=== PATIENT | female | born 1945 | race Caucasian/White ===

== ENCOUNTER → 2016-07-07 | Outpatient (CLI) | payer OTHER ==
[2016-01-13 19:31] VITALS: BP 163/80
--- NOTE | 2016-07-07 11:36 | RAD ---
Gastrografin Enema Indication: History of diverticulitis, complicated by a colovesical fistula. Patient has undergone s urgery and colostomy. Evaluate for persistent fistula or leak. Technique: Fluoroscopic spot radiographs, full view diagnostic radiography and fluoroscopy was perfo rmed live during the injection of dilute Gastrografin via a rectal tube. Findings: The rectum shows normal distention and filling up to the level of the rectosigmoid junctio n, where surgical clips are noted in the mid and left hemipelvis. At this point, the margin of the c olon is are regular, and narrowed, suggesting active inflammatory process and or stricture. Oblique views demonstrate a small inferiorly directed collection which is outside the expected lumen of the colon. This is about 1.5 x 0.5 cm. Further Gastrografin distension did not show expansion of the col lection or leak elsewhere. No convincing evidence of contrast seen in the urinary bladder. Impression: 1. Small extra colonic collection of material, with fistulous connection to the colon. The colon at this level demonstrates irregular mucosa and focal narrowing suggesting active inflammatory process. Evacuated post enema material was slightly sanguinous, also suggesting inflammation. 2. Contrast freely progressed past the narrowing cranially into the colostomy bag, without other vanessa ss abnormality seen. Reported By:
== END ==
LOC: RAD 09:03
PROVIDERS: ATTEND Internal Medicine Gastroenterology
DX: K60.3 Anal fistula (principal)
CPT/HCPCS: 74270

== ENCOUNTER 2016-12-17 10:02 | Inpatient (IN) | payer OTHER ==
[2016-12-17] MEDS ORDERED: ZOFRAN INJ 4 MG VIAL IVP PRN (10:10)
[2016-12-17 11:33] LABS: BASOPHILS # (AUTO) 0.1 X10^3/uL (0.0-0.1); BASOPHILS % (AUTO) 0.6 % (0.2-1.0); EOSINOPHILS # (AUTO) 0.1 x10^3/uL (0.0-0.2); EOSINOPHILS % (AUTO) 0.6 % (0.9-2.9); HEMATOCRIT 23.2 % (36.0-47.0); HEMOGLOBIN 7.4 g/dL (12.0-16.0); LYMPHOCYTES # (AUTO) 1.8 X10^3/uL (1.3-2.9); LYMPHOCYTES % (AUTO) 16.1 % (21.0-51.0); MEAN CORPUSCULAR HEMOGLOBIN 28.5 pg (27.0-34.0); MEAN CORPUSCULAR HGB CONC 31.8 g/dL (33.0-35.0); MEAN CORPUSCULAR VOLUME 89.7 fL (80.0-100.0); MEAN PLATELET VOLUME 6.8 fL (7.4-11.0); MONOCYTES # (AUTO) 0.9 x10^3/uL (0.3-0.8); MONOCYTES % (AUTO) 8.1 % (0.0-13.0); NEUTROPHILS # (AUTO) 8.4 x10^3/uL (2.2-4.8); NEUTROPHILS % (AUTO) 74.6 % (42.0-75.0); PLATELET COUNT 443 X10^3/uL (150.0-450.0); RED BLOOD COUNT 2.59 X10^6/uL (3.5-5.4); WHITE BLOOD COUNT 11.3 X10^3/uL (3.6-10.0)
[2016-12-17 11:43] LABS: ALBUMIN 3.2 g/dL (3.4-5.0); CALCIUM 9.1 mg/dL (8.5-10.1); CARBON DIOXIDE 26.6 mmol/L (21-32); COR CA(FOR HYPOALB) 9.7 mg/dL (8.5-10.1); CREATININE 1.41 mg/dL (0.55-1.02)
[2016-12-17 11:51] LABS: PLATELET MORPHOLOGY COMMENT NORMAL (NORMAL)
[2016-12-17 11:52] LABS: ANISOCYTOSIS 1+; HYPOCHROMASIA 1+; MICROCYTOSIS 1+
[2016-12-17] MEDS: NS 1000 ML 1,000 ML IV SCH ×2 (12:02→21:25)
[2016-12-17 12:12] VITALS: BMI 20.7
[2016-12-17] MEDS ORDERED: PHARMACY CONSULT - DOSE _____ XX SCH (17:00)
[2016-12-17 17:34] LABS: BILIRUBIN,URINE 1+ (NEGATIVE); BLOOD/HEMOGLOBIN,URINE 3+ (NEGATIVE); GLUCOSE, URINE NEGATIVE (NEGATIVE); KETONES,URINE NEGATIVE (NEGATIVE); LEUKOCYTE ESTERASE ,URINE 3+ (NEGATIVE); NITRITES,URINE POSITIVE (NEGATIVE); PROTEIN,URINE 2+ (NEGATIVE); UROBILINOGEN,URINE 1+ (NORMAL)
[2016-12-17 17:43] LABS: APPEARANCE,URINE HAZY (CLEAR); COLOR,URINE YELLOW (YELLOW)
[2016-12-17 17:44] LABS: BACTERIA,URINE TRACE /HPF (NEGATIVE); RBC,URINE 0-2 /HPF (NEGATIVE); SQUAMOUS EPITHELIAL CELL,UR RARE /HPF (NEGATIVE)
--- NOTE | 2016-12-17 17:53 | DR.H&P ---
H&P - History & Physical for Day of: H&P Date: 12/17/16 - Chief Complaint Chief Complaint: IS A 71 YEAR OLD PATIENT OF OURS WHO WAS A DIRECT ADMISSION. SHE PRESENTED TO THE OFFICE TODAY WITH COMPLAINTS OF NAUSEA, VOMITING , BURNING ON URINATION, AND WEAKNESS. PATIENT REPORTS THAT SHE WAS SCHEDULED FOR PREOP FOR ABDOMINAL SURGERY IN [place] THIS MORNING. PATIENT HAS A HISTORY OF A COLOSTOMY. COLOSTOMY WAS REVERSED TWO MONTHS AGO. PATIENT HAS SINCE DEVELOPED FISTULAS. PATIENT REPORTS THAT PARTICLES OF FECES ARE IN HER URINE. CULTURES WERE OBTAINED IN [place] AND PATIENT WAS NOTIFIED THAT CULTURES GREW OUT TWO SEPERATED MICROORGANISMS. SHE WAS PLACED ON CIPRO, HOWEVER, PATIENT STOPPED TAKING BECAUSE IT CAUSED NAUSEA AND VOMITING. PATIENT WAS CHANGED TO BACTRIM. PATIENT REPORTS INTRACTABLE NAUSEA AND VOMITING SINCE LAST NIGHT DESPITE CHANGE OF ANTIBIOTICS. ON EXAMINATION, LUNGS WERE NOTED CLEAR TO AUSCULTATION. ABDOMEN IS SOFT, ROUND, AND TENDER. SHE REPORTS DIFFUSE TENDERNESS. NORMAL BOWEL SOUNDS WERE NOTED IN ALL QUADRANTS. PATIENT APPEARED TO BE VERY WEAK. WE ADMITTED PATIENT TO THE HOSPITAL FOR FURTHER TREATMENT AND EVALUATION OF INTRACTABLE NAUSEA, VOMITING, UTI, AND DEHYDRATION. WE PLANNED TO OBTAIN CBC, CMP, BLOOD CULTURES, AND URINALYSIS ON ADMISSION. ON ADMISSION, LABS WERE OBTAINED. ABNORMAL LAB VALUES INCLUDE THE FOLLOWING: WBC 11.3, RBC 2.59, HGB 7.4, HCT 23.2, SODIUM 135, POTASSIUM 3.2, CREATININE 1.41, GLUCOSE 112 , TOTAL BILI 1.50, ALBUMIN 3.2. URINALYSIS REPORTE WBC 25-50, BACTERIA TRACE, LEUKOCYTES 3+, NITRATES POSITIVE, PROTEIN 2+. A URINE CULTURE WAS SET UP. WE STARTED PATIENT ON NS@125ML/HR, ZOFRAN 4MG IV Q4H PRN, MORPHINE 2MG IV Q4H PRN PAIN. WE WILL ALSO START LEVAQUIN AND FORTAZ, PHARMACY TO DOSE. WE PLAN TO FOLLOW UP WITH AM LABS AND CONTINUE TO MONITOR PATIENT. - Allergies Allergies/Adverse Reactions: Allergies Allergy/AdvReac Type Severity Reaction Status Date / Time ciprofloxacin [From Cipro] Allergy Verified 12/17/16 11:31 metronidazole [From Flagyl] Allergy Verified 12/17/16 11:31 - Past Medical History Past Medical History: Hypertension Additional Medical History: Cataracts, Diverticulosis, back pain, DDD, Scoliosis , Previous blood transfusion - Past Surgical History Surgical History: Bowel Resection, Joint Replacement Additional Surgical History: Colostomy approx. 6 weeks ago, Bilateral knee replacement, Shoulder replacement, hip replacement. - Family History Family Medical History: Diabetes Mellitus, [place], Hypertension - Social History Does patient currently use any type of tobacco product: No Have you used tobacco products in the last 12 months: No Type of Tobacco Use: None Does any household member use tobacco: No Alcohol Use: None - Medications Home Medications: Alprazolam [XANAX 0.5 MG *] 1 tab PO BID 12/17/16 [History Confirmed 12/17/16] Ascorbic Acid [Vitamin C] 500 mg PO DAILY 12/17/16 [History Confirmed 12/17/16] Cholecalciferol (Vitamin D3) [Vitamin D3] 5,000 units PO BID 12/17/16 [History Confirmed 12/17/16] Clonazepam 2 mg PO HS 12/17/16 [History Confirmed 12/17/16] Famotidine [PEPCID TAB 20 MG *] 1 tab PO BID 12/17/16 [History Confirmed ] Gabapentin [NEURONTIN CAP 300 mg *] 1 tab PO BID 12/17/16 [History Confirmed ] Hydrocodone-Acet 10/325 mg [NORCO 10 MG/325 MG *] 1 tab PO BID PRN 12/17/16 [ History Confirmed 12/17/16] Levothyroxine Sodium [SYNTHROID 75 mcg *] 77 mcg PO DAILY 12/17/16 [History Confirmed 12/17/16] Lisinopril [Prinivil] 2.5 mg PO DAILY 12/17/16 [History Confirmed 12/17/16] Multivitamin/Iron/Folic Acid [Centrum Women Tablet] 1 tab PO DAILY 12/17/16 [ History Confirmed 12/17/16] Pantoprazole Sodium 40 mg [PROTONIX 40 MG *] 40 mg PO DAILY 12/17/16 [History Confirmed 12/17/16] Promethazine HCl [PHENERGAN TAB 25 MG *] 1 tab PO Q4-6H PRN 12/17/16 [History Confirmed 12/17/16] Ropinirole HCl [REQUIP 1 MG *] 0.5 mg PO HS 12/17/16 [History Confirmed 12/17/16 ] Sertraline HCl [ZOLOFT 50 MG *] 50 mg PO HS PRN 12/17/16 [History Confirmed ] Sulfamethoxazole-Trimethoprim [BACTRIM DS TAB 800/160 MG *] 1 tab PO BID [History Confirmed 12/17/16] Tizanidine HCl 4 mg PO HS 12/17/16 [History Confirmed 12/17/16] Triamterene & Hydrochlorothiaz [DYAZIDE CAP 37.5/25 MG GENERIC *] 1 tab PO DAILY 12/17/16 [History Confirmed 12/17/16] - Review of Systems Constitutional: Weakness Eyes: No Symptoms Reported ENT: No Symptoms Reported Respiratory: No Symptoms Reported Cardiovascular: No Symptoms Reported Gastrointestinal: Nausea, Vomiting, Abdominal Pain Genitourinary: See HPI Musculoskeletal: No Symptoms Reported Skin: No Symptoms Reported Neurological: Weakness - Physical Exam Vital Signs: Temperature 98.4 F Pulse Rate [Right Radial] 76 Respiratory Rate 18 Blood Pressure [Left Arm] 142/65 Blood Pressure [Right Arm] 151/75 Blood Pressure 163/80 O2 Sat by Pulse Oximetry 92 Oriented: Normal Eyes: Normal Ear: Normal Nose: Normal Throat: Dry Respiratory: Clear Throughout Cardiovascular: Normal : Normal Auscultation: Bowel Sounds: Normal Palpation: Normal Tenderness: Normal Skin: Normal Psychiatric: Normal Mood Description: Calm Affect: Normal Speech Pattern: Clear - Assessment/Plan (1) Urinary tract infection Qualifiers: Urinary tract infection type: acute cystitis Hematuria presence: without hematuria Qualified Code(s): N30.00 - Acute cystitis without hematuria Status: Acute Plan: LEVAQUIN IV, FORTAZ IV, COTNINUE TO MONITOR (2) Dehydration Status: Acute Plan: NS@125ML/HR, CONTINUE TO MONITOR (3) Nausea & vomiting Qualifiers: Vomiting type: unspecified Vomiting Intractability: intractable Qualified Code(s): R11.2 - Nausea with vomiting, unspecified Status: Acute Plan: ZOFRAN 4MG IV Q4H PRN, NS AT 125ML/HR, CONTINUE TO MONITOR
[2016-12-17] MEDS ORDERED: TYLENOL 325 MG TAB PO PRN (19:41)
[2016-12-17] MEDS ORDERED: XANAX PO PRN (20:34)
[2016-12-17] MEDS ORDERED: ZESTRIL TAB 5 MG PO PRN (20:41)
[2016-12-17] MEDS ORDERED: PYRIDIUM PO PRN (20:42)
[2016-12-17] MEDS ORDERED: LEVAQUIN PREMIX IV 750 MG 750 MG/150 ML BAG IV ONE (21:00)
[2016-12-17] MEDS: FORTAZ or TAZICEF INJ 1 GM in NS 50 ML IV + SPIKE MINIBAG* 50 ML IV SCH (21:20)
[2016-12-17] MEDS: ZOLOFT PO SCH (21:23)
[2016-12-17] MEDS: KLONOPIN TAB 1 MG PO SCH (21:23)
[2016-12-17] MEDS: NEURONTIN CAP 300 MG PO SCH (21:23)
[2016-12-17] MEDS: NORCO 10/325 TAB PO PRN (21:24)
[2016-12-17] MEDS: REQUIP PO SCH (21:24)
[2016-12-17] MEDS: ZANAFLEX PO SCH (21:24)
[2016-12-17] MEDS: PHENERGAN INJ 25 MG IV PRN (21:25)
[2016-12-18] MEDS: PHENERGAN INJ 25 MG IV PRN (04:11)
[2016-12-18] MEDS: SYNTHROID 75 mcg TAB PO SCH (06:06)
[2016-12-18] MEDS: NS 1000 ML 1,000 ML IV SCH ×3 (06:06→20:31)
[2016-12-18 06:34] LABS: BASOPHILS # (AUTO) 0.1 X10^3/uL (0.0-0.1); BASOPHILS % (AUTO) 1.1 % (0.2-1.0); EOSINOPHILS # (AUTO) 0.1 x10^3/uL (0.0-0.2); EOSINOPHILS % (AUTO) 1.1 % (0.9-2.9); LYMPHOCYTES # (AUTO) 1.5 X10^3/uL (1.3-2.9); LYMPHOCYTES % (AUTO) 21.2 % (21.0-51.0); MEAN CORPUSCULAR HEMOGLOBIN 29.6 pg (27.0-34.0); MEAN CORPUSCULAR HGB CONC 32.4 g/dL (33.0-35.0); MEAN CORPUSCULAR VOLUME 91.6 fL (80.0-100.0); MONOCYTES # (AUTO) 0.7 x10^3/uL (0.3-0.8); MONOCYTES % (AUTO) 9.7 % (0.0-13.0); NEUTROPHILS # (AUTO) 4.8 x10^3/uL (2.2-4.8); NEUTROPHILS % (AUTO) 66.9 % (42.0-75.0); PLATELET COUNT 346 X10^3/uL (150.0-450.0); RED BLOOD COUNT 2.11 X10^6/uL (3.5-5.4); RED CELL DISTRIBUTION WIDTH 22.8 % (11.6-16.5); WHITE BLOOD COUNT 7.1 X10^3/uL (3.6-10.0)
[2016-12-18 06:55] LABS: ALANINE AMINOTRANSFERASE 16 Units/L (12-78); ALBUMIN 2.7 g/dL (3.4-5.0); ALKALINE PHOSPHATASE 88 Units/L (46-116); ASPARTATE AMINO TRANSFERASE 34 Units/L (15-37); BLOOD UREA NITROGEN 9 mg/dL (7-18); CALCIUM 8.2 mg/dL (8.5-10.1); CHLORIDE 106 mmol/L (98-107); COR CA(FOR HYPOALB) 9.2 mg/dL (8.5-10.1); CREATININE 1.29 mg/dL (0.55-1.02); SODIUM 140 mmol/L (136-145); TOTAL PROTEIN 6.1 g/dL (6.4-8.2); eGFR BLACK RACES 52 (>60); eGFR NON BLACK RACES 43 (>60)
[2016-12-18] MEDS: NORCO 10/325 TAB PO PRN (06:56)
[2016-12-18 07:31] LABS: HEMOGLOBIN 6.3 g/dL (12.0-16.0)
[2016-12-18 07:32] LABS: HEMATOCRIT 19.3 % (36.0-47.0)
[2016-12-18 07:34] LABS: ANISOCYTOSIS 2+; HYPOCHROMASIA 1+; PLATELET MORPHOLOGY COMMENT NORMAL (NORMAL); SPHEROCYTES PRESENT; STOMATOCYTES PRESENT
[2016-12-18] MEDS: NEURONTIN CAP 300 MG PO SCH ×2 (08:46→20:31)
[2016-12-18] MEDS: MAXZIDE 37.5/25 MG PO SCH ×2 (08:46→10:22)
[2016-12-18] MEDS: VITAMIN C PO SCH (08:46)
[2016-12-18] MEDS: PEPCID TAB 20 MG PO SCH (08:47)
[2016-12-18] MEDS: PROTONIX TAB 40 MG PO SCH (08:47)
[2016-12-18] MEDS: FORTAZ or TAZICEF INJ 1 GM in NS 50 ML IV + SPIKE MINIBAG* 50 ML IV SCH (08:48)
[2016-12-18] MEDS ORDERED: DILAUDID PO PRN (09:04)
[2016-12-18] MEDS: NORCO 10/325 TAB PO SCH ×4 (10:23→20:30)
[2016-12-18] MEDS: NS 500 ML IV 500 ML IV ONE (14:15)
--- NOTE | 2016-12-18 18:05 | PCM.PROG ---
Progress Note - Progress Note for Day of Date: 12/18/16 - Subjective Subjective: WAS ADMITTED YESTERDAY FOR NAUSEA, VOMITING, DIARRHEA, BURING ON URINATION, AND GENERALIZED WEAKNESS. SHE ALSO REPORTS BACK PAIN. PATIENT STATES, "I KNOW ITS FROM LYING IN THIS BED". TODAY, SHE IS ALERT AND ORIENTED, LYING IN BED ON MORNING ROUNDS. PATIENT REPORTS FEELING MUCH BETTER SINCE ADMISSION, HOWEVER, CONTINUES WITH COMPLAINTS OF DIARRHEA AND WEAKNESS. ON EXAMINATION, LUNGS WERE NOTED CLEAR TO AUSCULTATION. ABDOMEN IS SOFT, ROUND, AND TENDER TO PALPATION. HYPERACTIVE BOWEL SOUNDS ARE NOTED IN ALL QUADRANTS. HER VITAL SIGNS THIS MORNING ARE 98.5-68-18-93%-114/56. A CBC AND CMP WERE OBTAINED. ABNORMAL LAB VALUES INCLUDE THE FOLLOWING: RBC 2.11, HGB 6.3, HCT 9.3 , POTASSIUM 3.4, CREATININE 1.29, CALCIUM 8.2, TOTAL PROTEIN 6.1, ALBUMIN 2.7, TOTAL BILI 1.20. TODAY, WE WILL TYPE AND SCREEN AND TRANSFUSE 2 UNITS PRBC. WE WILL PREMEDICATE WITH TYLENOL 650MG PO AND BENADRYL 25MG IV. WE WILL ALSO START DILAUDID 1MG IV Q4H PRN FOR PAIN. WE PLAN TO FOLLOW UP WITH AM LABS AND CONTINUE TO MONITOR PATIENT. - Past Medical Family Social History Past Med/Fam/Surg Hx: No changes since H&P Allergies: Allergies ciprofloxacin [From Cipro] Allergy (Verified 12/17/16 11:31) metronidazole [From Flagyl] Allergy (Verified 12/17/16 11:31) - Review of Systems ROS: No change since H&P - Vital Signs and I&O's Vital Signs: Temperature 97.7 F Pulse Rate [Right Brachial] 72 Pulse Rate [Right Radial] 72 Respiratory Rate 16 Blood Pressure [Left Arm] 123/59 Blood Pressure [Right Arm] 114/58 Blood Pressure 163/80 O2 Sat by Pulse Oximetry 94 Intake and Output: Intake & Output 12/16/16 12/17/16 12/18/16 12/19/16 11:59 11:59 11:59 11:59 Intake Total 1920 1340 Output Total 301 2 Balance 1619 1338 - Physical Exam Oriented: Normal Eyes: Normal Ear: Normal Nose: Normal Throat: Normal, Dry Respiratory: Normal Cardiovascular: Normal : Normal Auscultation: Bowel Sounds: Normal Palpation: Normal Tenderness: Diffuse Skin: Normal Musculoskeletal: Normal Psychiatric: Normal Mood Description: Calm Affect: Normal Speech Pattern: Clear - Laboratory and Diagnostics Result Diagrams: 12/18/16 04:30 12/18/16 04:30 Labs: 12/17/16 17:05 Urine,Clean Catch Urine Culture - Final Laboratory WBC 7.1 X10^3/uL (3.6-10.0) 12/18/16 04:30 RBC 2.11 X10^6/uL (3.5-5.4) L 12/18/16 04:30 Hgb 6.3 g/dL (12.0-16.0) L* 12/18/16 04:30 Hct 19.3 % (36.0-47.0) L* 12/18/16 04:30 MCV 91.6 fL (80.0-100.0) 12/18/16 04:30 MCH 29.6 pg (27.0-34.0) 12/18/16 04:30 MCHC 32.4 g/dL (33.0-35.0) L 12/18/16 04:30 RDW 22.8 % (11.6-16.5) H 12/18/16 04:30 Plt Count 346 X10^3/uL (150.0-450.0) 12/18/16 04:30 Plt Count Comment Adequate (ADEQUATE) 12/18/16 04:30 MPV 8.0 fL (7.4-11.0) 12/18/16 04:30 Neut % 66.9 % (42.0-75.0) 12/18/16 04:30 Lymph % 21.2 % (21.0-51.0) 12/18/16 04:30 [place] % 9.7 % (0.0-13.0) 12/18/16 04:30 Eos % 1.1 % (0.9-2.9) 12/18/16 04:30 Baso % 1.1 % (0.2-1.0) H 12/18/16 04:30 Neut # 4.8 x10^3/uL (2.2-4.8) 12/18/16 04:30 Lymph # 1.5 X10^3/uL (1.3-2.9) 12/18/16 04:30 [place] # 0.7 x10^3/uL (0.3-0.8) 12/18/16 04:30 Eos # 0.1 x10^3/uL (0.0-0.2) 12/18/16 04:30 Baso # 0.1 X10^3/uL (0.0-0.1) 12/18/16 04:30 Absolute Nucleated RBC 0.2 /100WBC 12/18/16 04:30 Plt Morphology Comment Normal (NORMAL) 12/18/16 04:30 RBC Morphology Abnormal (NORMAL) A 12/18/16 04:30 Hypochromasia 1+ A 12/18/16 04:30 Anisocytosis 2+ A 12/18/16 04:30 Microcytosis 1+ A 12/17/16 11:20 Macrocytosis 1+ A 12/17/16 11:20 Spherocytes Present 12/18/16 04:30 Stomatocytes Present 12/18/16 04:30 Sodium 140 mmol/L (136-145) 12/18/16 04:30 Corrected Sodium TNP 12/18/16 04:30 Potassium 3.4 mmol/L (3.5-5.1) L 12/18/16 04:30 Chloride 106 mmol/L (98-107) 12/18/16 04:30 Carbon Dioxide 26.0 mmol/L (21-32) 12/18/16 04:30 BUN 9 mg/dL (7-18) 12/18/16 04:30 Creatinine 1.29 mg/dL (0.55-1.02) H 12/18/16 04:30 Est GFR (MDRD) Af Amer 52 (>60) L 12/18/16 04:30 Est GFR (MDRD) Non-Af 43 (>60) L 12/18/16 04:30 Glucose 79 mg/dL (65-99) 12/18/16 04:30 Calcium 8.2 mg/dL (8.5-10.1) L 12/18/16 04:30 Corrected Calcium 9.2 mg/dL (8.5-10.1) 12/18/16 04:30 Total Bilirubin 1.20 mg/dL (0.2-1.0) H 12/18/16 04:30 AST 34 Units/L (15-37) 12/18/16 04:30 ALT 16 Units/L (12-78) 12/18/16 04:30 Alkaline Phosphatase 88 Units/L (46-116) 12/18/16 04:30 Total Protein 6.1 g/dL (6.4-8.2) L 12/18/16 04:30 Albumin 2.7 g/dL (3.4-5.0) L 12/18/16 04:30 Globulin 3.4 g/dL (2.5-4.5) 12/18/16 04:30 Albumin/Globulin Ratio 0.8 Ratio (1.1-2.1) L 12/18/16 04:30 Specimen Type Clean catch urine 12/17/16 17:05 Urine Color Yellow (YELLOW) 12/17/16 17:05 Urine Appearance Hazy (CLEAR) 12/17/16 17:05 Urine pH 8.0 (5.0 - 8.0) 12/17/16 17:05 Ur Specific [place] 1.010 (1.000-1.030) 12/17/16 17:05 Urine Protein 2+ (NEGATIVE) 12/17/16 17:05 Urine Glucose (UA) Negative (NEGATIVE) 12/17/16 17:05 Urine Ketones Negative (NEGATIVE) 12/17/16 17:05 Urine Occult Blood 3+ (NEGATIVE) 12/17/16 17:05 Urine Nitrite Positive (NEGATIVE) 12/17/16 17:05 Urine Bilirubin 1+ (NEGATIVE) 12/17/16 17:05 Urine Urobilinogen 1+ (NORMAL) 12/17/16 17:05 Ur Leukocyte Esterase 3+ (NEGATIVE) 12/17/16 17:05 Urine RBC 0-2 /HPF (NEGATIVE) 12/17/16 17:05 Urine WBC 25-50 /HPF (NEGATIVE) 12/17/16 17:05 Ur Squamous Epith Cells Rare /HPF (NEGATIVE) 12/17/16 17:05 Urine Bacteria Trace /HPF (NEGATIVE) 12/17/16 17:05 Ur Culture Indicated? Yes/culture set up 12/17/16 17:05 Blood Type O POSITIVE 12/18/16 08:30 Antibody Screen Negative 12/18/16 08:30 Crossmatch See Detail 12/18/16 08:30 - Plan (1) Urinary tract infection Status: Acute Qualifiers: Urinary tract infection type: acute cystitis Hematuria presence: without hematuria Qualified Code(s): N30.00 - Acute cystitis without hematuria Plan: LEVAQUIN IV, FORTAZ IV, COTNINUE TO MONITOR (2) Dehydration Status: Acute Plan: NS@125ML/HR, CONTINUE TO MONITOR (3) Nausea & vomiting Status: Acute Qualifiers: Vomiting type: unspecified Vomiting Intractability: intractable Qualified Code(s): R11.2 - Nausea with vomiting, unspecified Plan: ZOFRAN 4MG IV Q4H PRN, NS AT 125ML/HR, CONTINUE TO MONITOR (4) Anemia Status: Acute Qualifiers: Anemia type: unspecified type Qualified Code(s): D64.9 - Anemia, unspecified Plan: TRANSFUSE 2 UNITS PRBC, MONITOR H&H, CONTINUE TO MONITOR
[2016-12-18] MEDS: ZANAFLEX PO SCH (20:30)
[2016-12-18] MEDS: KLONOPIN TAB 1 MG PO SCH (20:30)
[2016-12-18] MEDS: ZOLOFT PO SCH (20:30)
[2016-12-18] MEDS: REQUIP PO SCH (20:30)
[2016-12-19] MEDS ORDERED: NS 500 ML IV 500 ML IV ONE (00:46)
[2016-12-19] MEDS: BENADRYL INJ 50 MG VIAL IVP PRN ×2 (00:51→10:37)
[2016-12-19] MEDS: NS 500 ML IV 500 ML IV ONE (00:51)
[2016-12-19] MEDS: NS 1000 ML 1,000 ML IV SCH ×2 (06:06→11:22)
[2016-12-19] MEDS: SYNTHROID 75 mcg TAB PO SCH (06:06)
[2016-12-19 06:47] LABS: BASOPHILS # (AUTO) 0.1 X10^3/uL (0.0-0.1); BASOPHILS % (AUTO) 1.2 % (0.2-1.0); EOSINOPHILS # (AUTO) 0.1 x10^3/uL (0.0-0.2); EOSINOPHILS % (AUTO) 1.7 % (0.9-2.9); HEMATOCRIT 26.2 % (36.0-47.0); HEMOGLOBIN 8.6 g/dL (12.0-16.0); MEAN CORPUSCULAR HEMOGLOBIN 29.6 pg (27.0-34.0); MEAN CORPUSCULAR HGB CONC 32.9 g/dL (33.0-35.0); MEAN CORPUSCULAR VOLUME 90.1 fL (80.0-100.0); MEAN PLATELET VOLUME 7.4 fL (7.4-11.0); MONOCYTES # (AUTO) 0.6 x10^3/uL (0.3-0.8); MONOCYTES % (AUTO) 8.4 % (0.0-13.0); NEUTROPHILS # (AUTO) 3.9 x10^3/uL (2.2-4.8); NEUTROPHILS % (AUTO) 58.7 % (42.0-75.0); PLATELET COUNT 301 X10^3/uL (150.0-450.0); RED BLOOD COUNT 2.91 X10^6/uL (3.5-5.4); RED CELL DISTRIBUTION WIDTH 20.5 % (11.6-16.5); WHITE BLOOD COUNT 6.6 X10^3/uL (3.6-10.0)
[2016-12-19 07:13] LABS: ANISOCYTOSIS 2+; HYPOCHROMASIA SLIGHT; PLATELET MORPHOLOGY COMMENT NORMAL (NORMAL); SPHEROCYTES PRESENT
[2016-12-19] MEDS: NEURONTIN CAP 300 MG PO SCH (08:26)
[2016-12-19] MEDS: PROTONIX TAB 40 MG PO SCH (08:27)
[2016-12-19] MEDS: PEPCID TAB 20 MG PO SCH (08:27)
[2016-12-19] MEDS: NORCO 10/325 TAB PO SCH ×4 (08:27→16:56)
[2016-12-19] MEDS: VITAMIN C PO SCH (08:27)
[2016-12-19] MEDS: FORTAZ or TAZICEF INJ 1 GM in NS 50 ML IV + SPIKE MINIBAG* 50 ML IV SCH (08:38)
[2016-12-19] MEDS: MAXZIDE 37.5/25 MG PO SCH (08:39)
[2016-12-19] MEDS ORDERED: LEVAQUIN PREMIX IV 750 MG 750 MG/150 ML BAG IV SCH (09:00)
[2016-12-19] MEDS ORDERED: NS 250 ML IV 250 ML IV ONE (10:32)
[2016-12-19 13:52] LABS: ALANINE AMINOTRANSFERASE 15 Units/L (12-78); ALBUMIN 2.6 g/dL (3.4-5.0); ALKALINE PHOSPHATASE 77 Units/L (46-116); ASPARTATE AMINO TRANSFERASE 28 Units/L (15-37); BLOOD UREA NITROGEN 6 mg/dL (7-18); CALCIUM 7.5 mg/dL (8.5-10.1); CARBON DIOXIDE 25.6 mmol/L (21-32); CHLORIDE 110 mmol/L (98-107); COR CA(FOR HYPOALB) 8.6 mg/dL (8.5-10.1); CREATININE 1.19 mg/dL (0.55-1.02); SODIUM 142 mmol/L (136-145); TOTAL PROTEIN 5.8 g/dL (6.4-8.2); eGFR BLACK RACES 58 (>60); eGFR NON BLACK RACES 48 (>60)
[2016-12-19 16:39] VITALS: BP 140/69
== END 2016-12-19 17:55 | disposition home or self-care (01) | DRG 690 ==
LOC: MED/SURG 10:02 → OBSVTOIN 12-18 08:00
PROVIDERS: ADMIT Internal Medicine; ATTEND Internal Medicine
PROC: 30233N1 Transfusion of Nonautologous Red Blood Cells into Peripheral Vein, Percutaneous Approach (ICD-10-PCS; principal; 2016-12-18)
PROC: 30233N1 Transfusion of Nonautologous Red Blood Cells into Peripheral Vein, Percutaneous Approach (ICD-10-PCS; 2016-12-19)
PROC: 30233N1 Transfusion of Nonautologous Red Blood Cells into Peripheral Vein, Percutaneous Approach (ICD-10-PCS; 2016-12-19)
PROC: 30233N1 Transfusion of Nonautologous Red Blood Cells into Peripheral Vein, Percutaneous Approach (ICD-10-PCS; 2016-12-19)
DX: N30.00 Acute cystitis without hematuria (principal); E86.0 Dehydration; R11.2 Nausea with vomiting, unspecified; I10 Essential (primary) hypertension; R19.7 Diarrhea, unspecified; R53.1 Weakness; D64.89 Other specified anemias; K63.2 Fistula of intestine
CPT/HCPCS: 36415; 36430; 80053; 81001; 85025; 86850; 86900; 86901; 86922; 87086; 93005; 94760; A4222; P9016; G0378; J0713; J1200; J1956; J2405; J2550

== ENCOUNTER → 2017-03-08 | Outpatient (CLI) | payer OTHER ==
--- NOTE | 2017-03-09 11:31 | CT ---
HISTORY: History of the fissures L2: Study: Computed tomography of the abdomen and pelvis: Multiple axial images were obtained throughou t the abdomen and pelvis after the ingestion of oral contrast and the injection of intravascular cont rast per standard protocol. Radiation dose reduction techniques utilized. Comparison: Barium enema examination from 07/07/2016 CT of the abdomen pelvis from 01/10/2016 and Findings: The lung bases demonstrate minimal interstitial scarring. Minimal hypostatic changes noted in the le ft lung base. The heart size is borderline enlarged. No appreciable pericardial effusion is noted. No appreciable coronary arterial calcification is noted. No focal lesions of the liver are identified. The gallbladder is mildly contracted. The spleen is n ormal in its appearance. No appreciable biliary duct dilatation is present. Mild atrophy of the chan creas is noted. The adrenal glands are normal. The kidneys enhance normally. There is a large simp le appearing cyst in the right kidney measuring a maximum of 7.1 cm. This has not significantly tripp ged in size when compared to the prior examination. There is minimal prominence of the proximal righ t ureter. This is also unchanged. Mild atherosclerotic changes present within the abdominal aorta. No evidence of retroperitoneal lymph node enlargement is identified. A left hip prosthesis is prese nt which partially obscures the pelvis. A small to moderate amount of free pelvic fluid is noted, sl ightly increased when compared to the prior CT examination. This predominates on the left. Surgical clips are present in the anatomic pelvis from prior sigmoid colon resection. The patient appears to be status post hysterectomy and probable bilateral salpingo oophorectomy. The stomach is nondistended. It is minimally thick walled distally, most likely from incomplete dist ention. The duodenum is normal. The small bowel is normal in its appearance. No evidence of mesent beverley adenopathy is identified. The cecum appears normal. The ascending colon is normal. There is a colostomy involving the proximal transverse colon. This is a new finding when compared to the prior CT examination. Beyond the colostomy the colon is nondistended but does contain a small amount of a ir. The distal transverse colon has a small amount of high density material within it suggesting con trast. The descending colon is nondistended down to the level of the colonic resection. I see no ev idence of diverticulitis. No appreciable inflammatory reaction is noted. Anterior abdominal wall cabrera rgery been performed. The extra abdominal fluid collection seen over the left anterior abdominal wal l is no longer present. There is hernia mesh in this region. Moderate lumbar spondylosis is noted. A left hip prosthesis is present. No acute bony abnormalities are identified. been prior surgery at the mid sigmoid level. IMPRESSION: 1. Patient is status post colostomy formation in the right lower quadrant. This appears to be from the proximal transverse colon. Beyond the colostomy and within the transverse colon there is a small amount of high density material. This could potentially be prolonged residual from the patient's pr ior barium enema. I do not see evidence of an entero colonic fistula or connection. A follow-up bar ium enema may be needed to confirm this. 2. Large simple appearing cyst in the right kidney, unchanged. 3. Mildly contracted gallbladder. 4. Small to moderate amount of free pelvic fluid, slightly increased when compared to the most recen t CT scan. Reported By:
== END ==
LOC: RAD 08:03
PROVIDERS: ATTEND Internal Medicine
DX: N32.1 Vesicointestinal fistula (principal)
CPT/HCPCS: 74177

== ENCOUNTER 2018-01-06 16:29 | Inpatient (IN) ==
[2018-01-06 16:38] VITALS: BMI 26.0
--- NOTE | 2018-01-06 17:09 | DR.GENAD ---
HPI Time Seen Time Seen by Provider: 01/06/18 17:05 PCP Primary Care Physician: MANJU HPI Comment HPI Comment: 73YR OLD WHITE FEMALE WITH CONSTIPATIN AND VOMITING. HISTORY BOWEL OBSTRUCTION. SMALL BM YESTERDAY MORNING. NO FEVER. NOT HOLDING DOWN FLUID, FOOD OR MEDICATIONS. Complaint/Symptoms Chief Complaint Doctors Comments: VOMITING, CONSTIPATION TIMES 2 DAYS. Chief Complaint:: PT C/O HER BOWELS NOT BEING ABLE TO MOVE SINCE TUESDAY NIGHT. PT STATES SHE HAS A COLOSTOMY AND HAS HAD ALOT OF ABD PROBLEMS AND SHE HAS NOT BEEN ABLE TO GO. PT STATES SHE HAS NOT BEEN ABLE TO KEEP ANYTHING DOWN. PT STATES SOON SHE TAKES ANY MEDICATIONS OR ANY FLUID INTAKE SHE VOMITS IT RIGHT BACK UP. Nurses notes reviewed Nurses Notes Review: Yes Source History Provided: Patient Mode of Arrival Mode of Arrival: Ambulatory Timing Onset of Chief Complaint: 01/04/18 Came on: Suddenly Duration Duration: Constant Duration: Days Severity Severity: Moderate Modifying Factors Worsens:: WHEN PATIENT DRINK FLUID OR TRY TO EAT, PAIN GET WORSE. Improves:: NOTHING. Associated Signs and Symptoms Associated Signs and Symptoms: ABDOMINAL PAIN, CONSTIPATION, N/V Other History Other History: HISTORY DIVERTICULITIS. PMH PMH Past Medical History: Yes Past Medical History: Hypertension Past Surgical History: Yes Surgical History: Abdominal Surgery, Bowel Resection and Joint Replacement Family History History of Family Medical Conditions: Yes Family Medical History: Diabetes Mellitus, [place] and Hypertension Social History Does any household member use tobacco: No Alcohol Use: None Do you use any recreational Drugs:: No Lives With: Alone Lives Where: Home infectious screening In the last 2 months have you had wt loss of >10#?: NO Have you had fever, night sweats or hemotysis?: No Have you traveled outside the country in the last 6 months?: No Isolation: Standard ROS Review of Systems Constitutional: Weakness and Fatigue; negative Fever Eyes: No Symptoms Reported ENTM: No Symptoms Reported Respiratoy: No Symptoms Reported Cardiovascular: No Symptoms Reported Gastrointestinal/Abdominal: Abdominal Pain, Constipation, Nausea and Vomiting Genitourinary: No Symptoms Reported Neurological: Weakness Musculoskeletal: Back Pain (CHRONIC BACK PAIN, ARTHRITIS) and Joint Pain Integumentary: No Symptoms Reported Endocrine: No Symptoms Reported Psychiatric: No Symptoms Reported All Other Systems: Reviewed and Negative PE Vital Signs Vitals: Temperature 98.1 F Pulse Rate [Brachial] 67 Pulse Rate 79 Respiratory Rate 18 Blood Pressure [Left Arm] 166/77 Blood Pressure [Right Arm] 175/80 Blood Pressure 112/77 O2 Sat by Pulse Oximetry 97 General Limitations: No Limitations General Appearance: Alert and In No Apparent Distress Head Head Exam: Normal Inspection and Atraumatic Eyes Eye exam: Normal Appearance and PERRL; negative Scleral Icterus and Conjunctival Injection ENT ENT Exam: Normal Exam, Normal Oropharynx, Normal External Ear Exam, Mucous Membranes Dry and TM's Normal Bilaterally External Ear Exam: Normal External Inspection TM/Canal Exam: Bilateral: Normal Nose Exam: Normal Nose Exam Mouth Exam: Normal Inspection Throat Exam: Normal Inspection Neck Neck Exam: Normal Inspection and Trachea Midline Chest Chest Inspection: Normal Inspection and Symmetric Chest Wall Rise Respiratory Respiratory Exam: Normal Lung Sounds Bilat Respiratory Exam: Bilateral: Clear to Auscultation Cardiovascular Cardiovascular Exam: Regular Rate and Normal Rhythm Abdominal Exam Abdominal Exam: Distention and Tenderness Abdominal Tenderness: Diffuse and Moderate Back Back Exam: Tenderness and Paraspinal Tenderness Neurologic Neurological Exam: Alert and Oriented X3; negative Motor Sensory Deficit Psychiatric Psychiatric Exam: Normal Affect and Anxious Skin Skin Exam: Dry MDM Additional Information Additional Information Obtained From: Family Differential Diagnosis Differential Diagnosis: BOWEL OBSTRUCTION, DIVERTICULITIS, CONSTIPATION, COURSE Treatment Treatment: SEE ORDERS. Education/Counseling Education/Counseling: Patient and Family ROR Labs Reviewed Laboratory Results Reviewed?: Yes Result Diagrams: 01/11/18 05:15 01/11/18 05:15 Laboratory: WBC 7.9 X10^3/uL (3.6-10.0) 01/11/18 05:15 RBC 4.13 X10^6/uL (3.5-5.4) 01/11/18 05:15 Hgb 12.9 g/dL (12.0-16.0) 01/11/18 05:15 Hct 38.2 % (36.0-47.0) 01/11/18 05:15 MCV 92.4 fL (80.0-100.0) 01/11/18 05:15 MCH 31.3 pg (27.0-34.0) 01/11/18 05:15 MCHC 33.9 g/dL (33.0-35.0) 01/11/18 05:15 RDW 12.8 % (11.6-16.5) 01/11/18 05:15 Plt Count 154 X10^3/uL (150.0-450.0) 01/11/18 05:15 MPV 7.7 fL (7.4-11.0) 01/11/18 05:15 Neut % (Auto) 74.7 % (42.0-75.0) 01/11/18 05:15 Lymph % (Auto) 15.4 % (21.0-51.0) L 01/11/18 05:15 [place] % (Auto) 8.7 % (0.0-13.0) 01/11/18 05:15 Eos % (Auto) 0.7 % (0.9-2.9) L 01/11/18 05:15 Baso % (Auto) 0.5 % (0.2-1.0) 01/11/18 05:15 Neut # (Auto) 5.9 x10^3/uL (2.2-4.8) H 01/11/18 05:15 Lymph # (Auto) 1.2 X10^3/uL (1.3-2.9) L 01/11/18 05:15 [place] # (Auto) 0.7 x10^3/uL (0.3-0.8) 01/11/18 05:15 Eos # (Auto) 0.1 x10^3/uL (0.0-0.2) 01/11/18 05:15 Baso # (Auto) 0.0 X10^3/uL (0.0-0.1) 01/11/18 05:15 Absolute Nucleated RBC 0.0 /100WBC 01/11/18 05:15 Sodium 138 mmol/L (136-145) 01/11/18 05:15 Corrected Sodium TNP 01/11/18 05:15 Potassium 4.3 mmol/L (3.5-5.1) 01/11/18 05:15 Chloride 106 mmol/L (98-107) 01/11/18 05:15 Carbon Dioxide 19.8 mmol/L (21-32) L 01/11/18 05:15 BUN 8 mg/dL (7-18) 01/11/18 05:15 Creatinine 0.99 mg/dL (0.55-1.02) 01/11/18 05:15 Est GFR (MDRD) Af Amer > 60 (>60) 01/11/18 05:15 Est GFR (MDRD) Non-Af 58 (>60) L 01/11/18 05:15 Glucose 80 mg/dL (65-99) 01/11/18 05:15 Calcium 7.8 mg/dL (8.5-10.1) L 01/11/18 05:15 Corrected Calcium 8.5 mg/dL (8.5-10.1) 01/11/18 05:15 Magnesium 1.9 mg/dL (1.7-2.9) 01/07/18 06:08 Total Bilirubin 0.80 mg/dL (0.2-1.0) 01/11/18 05:15 AST 26 Units/L (15-37) 01/11/18 05:15 ALT 44 Units/L (12-78) 01/11/18 05:15 Alkaline Phosphatase 76 Units/L (46-116) 01/11/18 05:15 Total Protein 6.4 g/dL (6.4-8.2) 01/11/18 05:15 Albumin 3.1 g/dL (3.4-5.0) L 01/11/18 05:15 Globulin 3.3 g/dL (2.5-4.5) 01/11/18 05:15 Albumin/Globulin Ratio 0.9 Ratio (1.1-2.1) L 01/11/18 05:15 Amylase 48 Units/L (25-115) 01/06/18 17:28 Lipase 117 Units/L (73-393) 01/06/18 17:28 Specimen Type Random urine 01/06/18 19:14 Urine Color Yellow (YELLOW) 01/06/18 19:14 Urine Appearance Slightly hazy (CLEAR) 01/06/18 19:14 Urine pH 5.0 (5.0 - 8.0) 01/06/18 19:14 Ur Specific [place] 1.015 (1.000-1.030) 01/06/18 19:14 Urine Protein 2+ (NEGATIVE) 01/06/18 19:14 Urine Glucose (UA) Negative (NEGATIVE) 01/06/18 19:14 Urine Ketones Negative (NEGATIVE) 01/06/18 19:14 Urine Occult Blood 1+ (NEGATIVE) 01/06/18 19:14 Urine Nitrite Negative (NEGATIVE) 01/06/18 19:14 Urine Bilirubin Negative (NEGATIVE) 01/06/18 19:14 Urine Urobilinogen Normal (NORMAL) 01/06/18 19:14 Ur Leukocyte Esterase 1+ (NEGATIVE) 01/06/18 19:14 Urine RBC 3-5 /HPF (NONE SEEN) 01/06/18 19:14 Urine WBC 3-5 /HPF (NONE SEEN) 01/06/18 19:14 Ur Squamous Epith Cells Few /HPF (NEGATIVE) 01/06/18 19:14 Urine Bacteria Trace /HPF (NEGATIVE) 01/06/18 19:14 Urine Mucus Moderate /HPF (NEGATIVE) 01/06/18 19:14 Ur Culture Indicated? No/not indicated 01/06/18 19:14 XRAY XRAY Interpreted by: Radiologist XRAY Findings: REPORT NOTED Diagnosis Discharge Problem: Small bowel obstruction Instructions Instructions: Small Bowel Obstruction, [id number] Nausea and Vomiting, Adult, Itgq-[id number] Hypertension, Moix-ef-Cmev
[2018-01-06] MEDS ORDERED: ZOFRAN INJ 4 MG VIAL IVP ONE (17:16)
[2018-01-06] MEDS ORDERED: MORPHINE SULFATE INJ 4 MG IVP ONE (17:16)
[2018-01-06] MEDS ORDERED: ZOFRAN INJ 4 MG VIAL ONE (17:34)
[2018-01-06] MEDS ORDERED: MORPHINE SULFATE INJ 4 MG ONE (17:34)
[2018-01-06] MEDS ORDERED: NS 1000 ML 1,000 ML ONE (17:38)
[2018-01-06 17:39] LABS: BASOPHILS # (AUTO) 0.1 X10^3/uL (0.0-0.1); BASOPHILS % (AUTO) 0.3 % (0.2-1.0); EOSINOPHILS % (AUTO) 0.1 % (0.9-2.9); HEMOGLOBIN 16.7 g/dL (12.0-16.0); LYMPHOCYTES # (AUTO) 2.6 X10^3/uL (1.3-2.9); LYMPHOCYTES % (AUTO) 15.7 % (21.0-51.0); MEAN CORPUSCULAR HGB CONC 34.2 g/dL (33.0-35.0); MEAN CORPUSCULAR VOLUME 90.7 fL (80.0-100.0); MEAN PLATELET VOLUME 7.2 fL (7.4-11.0); MONOCYTES # (AUTO) 1.4 x10^3/uL (0.3-0.8); MONOCYTES % (AUTO) 8.7 % (0.0-13.0); NEUTROPHILS # (AUTO) 12.4 x10^3/uL (2.2-4.8); NEUTROPHILS % (AUTO) 75.2 % (42.0-75.0); PLATELET COUNT 308 X10^3/uL (150.0-450.0); WHITE BLOOD COUNT 16.5 X10^3/uL (3.6-10.0)
[2018-01-06 17:48] LABS: ALANINE AMINOTRANSFERASE 105 Units/L (12-78); ALBUMIN 3.9 g/dL (3.4-5.0); ALKALINE PHOSPHATASE 77 Units/L (46-116); AMYLASE 48 Units/L (25-115); ASPARTATE AMINO TRANSFERASE 52 Units/L (15-37); BLOOD UREA NITROGEN 16 mg/dL (7-18); CALCIUM 9.3 mg/dL (8.5-10.1); CARBON DIOXIDE 30.7 mmol/L (21-32); CHLORIDE 93 mmol/L (98-107); COR NA(FOR HYPERGLY) 132 mmol/L (136-145); CREATININE 1.34 mg/dL (0.55-1.02); LIPASE 117 Units/L (73-393); SODIUM 132 mmol/L (136-145); TOTAL PROTEIN 7.6 g/dL (6.4-8.2); eGFR NON BLACK RACES 41 (>60)
[2018-01-06] MEDS ORDERED: NS 1000 ML 1,000 ML IV SCH (18:00)
--- NOTE | 2018-01-06 18:14 | CT ---
CT OF THE ABDOMEN AND PELVIS WITH CONTRAST HISTORY: Abdominal pain and constipation Comparison: 11/22/2017 Technique: Multiple axial images of the abdomen and pelvis were obtained from the lung bases to the pubic symphy sis follow the administration of IV contrast. Dose reduction techniques including Automated Exposure Control (AEC) and adjustment of mA and kV were utlized. Findings: The heart is normal in size. There is no pericardial effusion. Lung bases are clear without focal con solidation, pleural effusion or pneumothorax. Liver and spleen are normal in size, enhancement characteristics and contour. No focal lesions. The p ortal vein is patent. No ductal dilitation. Gallbladder is present. No calcified gallstones or gallbl adder wall thickening. The pancreas is unremarkable. Adrenal glands are normal. Kidneys enhance symme trically without hydronephrosis or nephrolithiasis. Simple right renal cyst is essentially unchanged from prior. Multiple loops of severely dilated small bowel with small bowel feces sign. Transition point appears to be in the left low/anterior abdomen is likely secondary to adhesions. There is focal mesenteric ed juana of the involved loops. No abnormal appearing mesenteric or retroperitoneal lymph nodes.. The bladder is normal in appearance. Uterus not seen. No free fluid or abnormal pelvic lymph nodes. No aggressive osseous lesions. IMPRESSION: 1. Findings of high-grade small bowel obstruction likely secondary to adhesions in the low left abdo men anteriorly. Focal mesenteric edema suggests vascular congestion. Would recommend surgical consult ation. Reported By:
[2018-01-06 19:24] LABS: BILIRUBIN,URINE NEGATIVE (NEGATIVE); BLOOD/HEMOGLOBIN,URINE 1+ (NEGATIVE); GLUCOSE, URINE NEGATIVE (NEGATIVE); KETONES,URINE NEGATIVE (NEGATIVE); LEUKOCYTE ESTERASE ,URINE 1+ (NEGATIVE); NITRITES,URINE NEGATIVE (NEGATIVE); PROTEIN,URINE 2+ (NEGATIVE); UROBILINOGEN,URINE NORMAL (NORMAL)
[2018-01-06 19:25] LABS: APPEARANCE,URINE SLIGHTLY HAZY (CLEAR); COLOR,URINE YELLOW (YELLOW)
[2018-01-06 19:30] LABS: BACTERIA,URINE TRACE /HPF (NEGATIVE); MUCUS,URINE MODERATE /HPF (NEGATIVE); SQUAMOUS EPITHELIAL CELL,UR FEW /HPF (NEGATIVE)
[2018-01-06] MEDS ORDERED: TYLENOL 325 MG TAB PO PRN (20:22)
[2018-01-06] MEDS: ZOFRAN INJ 4 MG VIAL IVP PRN (21:37)
[2018-01-06] MEDS ORDERED: ZOSYN VIAL 3.375 GRAMS IV SCH (22:00)
[2018-01-06] MEDS: ZOSYN VIAL 3.375 GRAMS IV SCH (23:00)
[2018-01-06] MEDS ORDERED: NS 100 ML IV + SPIKE MINIBAG* 100 ML IV ONE (23:05)
[2018-01-07] MEDS: PHENERGAN INJ 25 MG IV PRN ×2 (00:08→22:46)
[2018-01-07] MEDS: NS + KCL 20 MEQ/L 1,000 ML IV SCH ×6 (00:22→23:25)
[2018-01-07] MEDS: MORPHINE SULFATE INJ 2 MG INJ IVP PRN ×4 (01:25→20:52)
--- NOTE | 2018-01-07 02:32 | RAD ---
AP abdomen Indication: Small bowel obstruction, NG tube placement Findings: The tip and distal side port of the gastric tube overlie the gastric fundus, in satisfactor y position. No markedly dilated bowel loops identified, although there is relative paucity of bowel g as. No gross free air. Impression: NG tube in satisfactory position. Reported By:
[2018-01-07] MEDS ORDERED: NS 100 ML IV + SPIKE MINIBAG* 100 ML IV ONE ×3 (05:29→19:57)
[2018-01-07] MEDS: ZOSYN VIAL 3.375 GRAMS IV SCH ×3 (06:05→21:00)
[2018-01-07 06:48] LABS: BASOPHILS # (AUTO) 0.1 X10^3/uL (0.0-0.1); BASOPHILS % (AUTO) 0.5 % (0.2-1.0); EOSINOPHILS % (AUTO) 0.2 % (0.9-2.9); HEMOGLOBIN 14.4 g/dL (12.0-16.0); LYMPHOCYTES # (AUTO) 2.4 X10^3/uL (1.3-2.9); LYMPHOCYTES % (AUTO) 21.1 % (21.0-51.0); MEAN CORPUSCULAR HEMOGLOBIN 30.9 pg (27.0-34.0); MEAN CORPUSCULAR HGB CONC 34.2 g/dL (33.0-35.0); MEAN CORPUSCULAR VOLUME 90.4 fL (80.0-100.0); MONOCYTES % (AUTO) 8.9 % (0.0-13.0); NEUTROPHILS # (AUTO) 7.7 x10^3/uL (2.2-4.8); NEUTROPHILS % (AUTO) 69.3 % (42.0-75.0); PLATELET COUNT 165 X10^3/uL (150.0-450.0); RED BLOOD COUNT 4.65 X10^6/uL (3.5-5.4); RED CELL DISTRIBUTION WIDTH 13.3 % (11.6-16.5); WHITE BLOOD COUNT 11.1 X10^3/uL (3.6-10.0)
[2018-01-07 07:07] LABS: ALANINE AMINOTRANSFERASE 64 Units/L (12-78); ALBUMIN 2.6 g/dL (3.4-5.0); ALKALINE PHOSPHATASE 54 Units/L (46-116); BLOOD UREA NITROGEN 14 mg/dL (7-18); CALCIUM 7.7 mg/dL (8.5-10.1); CARBON DIOXIDE 22.4 mmol/L (21-32); CHLORIDE 102 mmol/L (98-107); COR CA(FOR HYPOALB) 8.8 mg/dL (8.5-10.1); CREATININE 1.11 mg/dL (0.55-1.02); SODIUM 136 mmol/L (136-145); TOTAL PROTEIN 5.8 g/dL (6.4-8.2); eGFR NON BLACK RACES 51 (>60)
[2018-01-07 07:11] LABS: ASPARTATE AMINO TRANSFERASE 31 Units/L (15-37)
[2018-01-07] MEDS ORDERED: CHLORASEPTIC SPRAY MT PRN (11:43)
[2018-01-07] MEDS: LOVENOX INJ 40 MG SYR SC SCH (12:04)
--- NOTE | 2018-01-07 13:22 | RAD ---
Examination: KUB History: Follow up obstruction Comparison reference, abdomen CT 01/06/2018 Findings: Segments of distended small bowel are noted in the left lower abdomen. There is little or n o gas in the colon. No ascites or mass is seen. Nasogastric tube is present in the gastric fundus. Impression: Selective small-bowel distention may represent ileus or small-bowel obstruction, as was s uggested on recent CT study. Reported By:
[2018-01-07] MEDS: ZOFRAN INJ 4 MG VIAL IVP PRN (20:54)
[2018-01-07] MEDS: PEPCID 20 MG IV PREMIX* 20 MG/50 ML BAG IV PRN (23:25)
[2018-01-08] MEDS: MORPHINE SULFATE INJ 2 MG INJ IVP PRN ×6 (01:04→21:54)
[2018-01-08 05:09] LABS: BASOPHILS % (AUTO) 0.4 % (0.2-1.0); EOSINOPHILS # (AUTO) 0.1 x10^3/uL (0.0-0.2); EOSINOPHILS % (AUTO) 0.6 % (0.9-2.9); HEMATOCRIT 38.6 % (36.0-47.0); HEMOGLOBIN 13.1 g/dL (12.0-16.0); LYMPHOCYTES # (AUTO) 1.7 X10^3/uL (1.3-2.9); LYMPHOCYTES % (AUTO) 19.5 % (21.0-51.0); MEAN CORPUSCULAR HEMOGLOBIN 31.2 pg (27.0-34.0); MEAN CORPUSCULAR HGB CONC 33.8 g/dL (33.0-35.0); MEAN CORPUSCULAR VOLUME 92.2 fL (80.0-100.0); MEAN PLATELET VOLUME 7.3 fL (7.4-11.0); MONOCYTES # (AUTO) 0.7 x10^3/uL (0.3-0.8); MONOCYTES % (AUTO) 8.5 % (0.0-13.0); NEUTROPHILS # (AUTO) 6.2 x10^3/uL (2.2-4.8); PLATELET COUNT 164 X10^3/uL (150.0-450.0); RED BLOOD COUNT 4.19 X10^6/uL (3.5-5.4); RED CELL DISTRIBUTION WIDTH 13.1 % (11.6-16.5); WHITE BLOOD COUNT 8.7 X10^3/uL (3.6-10.0)
[2018-01-08] MEDS ORDERED: NS 100 ML IV + SPIKE MINIBAG* 100 ML IV ONE ×3 (05:13→20:06)
[2018-01-08 05:18] LABS: ALANINE AMINOTRANSFERASE 56 Units/L (12-78); ALBUMIN 2.9 g/dL (3.4-5.0); ALKALINE PHOSPHATASE 63 Units/L (46-116); ASPARTATE AMINO TRANSFERASE 29 Units/L (15-37); BLOOD UREA NITROGEN 13 mg/dL (7-18); CALCIUM 7.6 mg/dL (8.5-10.1); CHLORIDE 108 mmol/L (98-107); COR CA(FOR HYPOALB) 8.5 mg/dL (8.5-10.1); CREATININE 1.28 mg/dL (0.55-1.02); SODIUM 143 mmol/L (136-145); TOTAL PROTEIN 5.8 g/dL (6.4-8.2); eGFR NON BLACK RACES 43 (>60)
[2018-01-08] MEDS: NS + KCL 20 MEQ/L 1,000 ML IV SCH ×5 (05:30→20:56)
[2018-01-08] MEDS: ZOSYN VIAL 3.375 GRAMS IV SCH ×3 (05:30→21:34)
--- NOTE | 2018-01-08 08:07 | RAD ---
Examination: KUB History: Follow up obstruction Comparison 01/07/2018 Findings: Increasing selective small-bowel distention in the left abdomen. Paucity of colon gas. No e xtraluminal air or gas demonstrated. Nasogastric tube coiled in the proximal stomach. There is no marianne dence for developing mass or ascites. Impression: Increasing small bowel distention consistent with obstruction. Reported By:
[2018-01-08] MEDS: LOVENOX INJ 40 MG SYR SC SCH (09:23)
[2018-01-08] MEDS: PHENERGAN INJ 25 MG IV PRN (09:28)
--- NOTE | 2018-01-08 12:00 | DR.PROGNOT ---
Hospital Progress Notes - Progress Note for Day of: Progress Note Date: 01/08/18 - Chief Complaint Chief Complaint: still having mid abdominal pain requiring strong narcotics . colostomy is not functioning yet .. moderate drainage in NGT . temp is 99 and WBC is normal now - Past Medical Family Social History Past Med/Fam/Surg Hx: No changes since H&P Allergies: Allergies ciprofloxacin [From Cipro] Allergy (Verified 12/17/16 11:31) metronidazole [From Flagyl] Allergy (Verified 12/17/16 11:31) - Review Of Systems ROS: No change since H&P - Vital Signs Vital Signs: Temperature 98.4 F Pulse Rate [Brachial] 63 Pulse Rate 79 Respiratory Rate 18 Blood Pressure [Left Arm] 122/65 Blood Pressure [Right Arm] 175/80 Blood Pressure 112/77 O2 Sat by Pulse Oximetry 94 - Physical Exam Oriented: Normal Eyes: Normal Ear: Normal Throat: Normal Respiratory: Normal Cardiovascular: Normal : Normal GI:Auscultation: Normal GI:Palpation: Other (moderate distention with jaciel umbilical tenderness , BS +.. colostomy is healthy but not functioning ) Skin: Normal Musculoskeletal: Normal Psychiatric: Normal Speech Pattern: Clear, Appropriate - Laboratory and Diagnostics Result Diagrams: 01/08/18 04:50 01/08/18 04:50 Labs: Laboratory WBC 8.7 X10^3/uL (3.6-10.0) 01/08/18 04:50 RBC 4.19 X10^6/uL (3.5-5.4) 01/08/18 04:50 Hgb 13.1 g/dL (12.0-16.0) 01/08/18 04:50 Hct 38.6 % (36.0-47.0) 01/08/18 04:50 MCV 92.2 fL (80.0-100.0) 01/08/18 04:50 MCH 31.2 pg (27.0-34.0) 01/08/18 04:50 MCHC 33.8 g/dL (33.0-35.0) 01/08/18 04:50 RDW 13.1 % (11.6-16.5) 01/08/18 04:50 Plt Count 164 X10^3/uL (150.0-450.0) 01/08/18 04:50 MPV 7.3 fL (7.4-11.0) L 01/08/18 04:50 Neut % (Auto) 71.0 % (42.0-75.0) 01/08/18 04:50 Lymph % (Auto) 19.5 % (21.0-51.0) L 01/08/18 04:50 [place] % (Auto) 8.5 % (0.0-13.0) 01/08/18 04:50 Eos % (Auto) 0.6 % (0.9-2.9) L 01/08/18 04:50 Baso % (Auto) 0.4 % (0.2-1.0) 01/08/18 04:50 Neut # (Auto) 6.2 x10^3/uL (2.2-4.8) H 01/08/18 04:50 Lymph # (Auto) 1.7 X10^3/uL (1.3-2.9) 01/08/18 04:50 [place] # (Auto) 0.7 x10^3/uL (0.3-0.8) 01/08/18 04:50 Eos # (Auto) 0.1 x10^3/uL (0.0-0.2) 01/08/18 04:50 Baso # (Auto) 0.0 X10^3/uL (0.0-0.1) 01/08/18 04:50 Absolute Nucleated RBC 0.0 /100WBC 01/08/18 04:50 Sodium 143 mmol/L (136-145) 01/08/18 04:50 Corrected Sodium TNP 01/08/18 04:50 Potassium 4.3 mmol/L (3.5-5.1) 01/08/18 04:50 Chloride 108 mmol/L (98-107) H 01/08/18 04:50 Carbon Dioxide 27.0 mmol/L (21-32) 01/08/18 04:50 BUN 13 mg/dL (7-18) 01/08/18 04:50 Creatinine 1.28 mg/dL (0.55-1.02) H 01/08/18 04:50 Est GFR (MDRD) Af Amer 53 (>60) L 01/08/18 04:50 Est GFR (MDRD) Non-Af 43 (>60) L 01/08/18 04:50 Glucose 87 mg/dL (65-99) 01/08/18 04:50 Calcium 7.6 mg/dL (8.5-10.1) L 01/08/18 04:50 Corrected Calcium 8.5 mg/dL (8.5-10.1) 01/08/18 04:50 Magnesium 1.9 mg/dL (1.7-2.9) 01/07/18 06:08 Total Bilirubin 0.90 mg/dL (0.2-1.0) 01/08/18 04:50 AST 29 Units/L (15-37) 01/08/18 04:50 ALT 56 Units/L (12-78) 01/08/18 04:50 Alkaline Phosphatase 63 Units/L (46-116) 01/08/18 04:50 Total Protein 5.8 g/dL (6.4-8.2) L 01/08/18 04:50 Albumin 2.9 g/dL (3.4-5.0) L 01/08/18 04:50 Globulin 2.9 g/dL (2.5-4.5) 01/08/18 04:50 Albumin/Globulin Ratio 1.0 Ratio (1.1-2.1) L 01/08/18 04:50 Amylase 48 Units/L (25-115) 01/06/18 17:28 Lipase 117 Units/L (73-393) 01/06/18 17:28 Specimen Type Random urine 01/06/18 19:14 Urine Color Yellow (YELLOW) 01/06/18 19:14 Urine Appearance Slightly hazy (CLEAR) 01/06/18 19:14 Urine pH 5.0 (5.0 - 8.0) 01/06/18 19:14 Ur Specific [place] 1.015 (1.000-1.030) 01/06/18 19:14 Urine Protein 2+ (NEGATIVE) 01/06/18 19:14 Urine Glucose (UA) Negative (NEGATIVE) 01/06/18 19:14 Urine Ketones Negative (NEGATIVE) 01/06/18 19:14 Urine Occult Blood 1+ (NEGATIVE) 01/06/18 19:14 Urine Nitrite Negative (NEGATIVE) 01/06/18 19:14 Urine Bilirubin Negative (NEGATIVE) 01/06/18 19:14 Urine Urobilinogen Normal (NORMAL) 01/06/18 19:14 Ur Leukocyte Esterase 1+ (NEGATIVE) 01/06/18 19:14 Urine RBC 3-5 /HPF (NONE SEEN) 01/06/18 19:14 Urine WBC 3-5 /HPF (NONE SEEN) 01/06/18 19:14 Ur Squamous Epith Cells Few /HPF (NEGATIVE) 01/06/18 19:14 Urine Bacteria Trace /HPF (NEGATIVE) 01/06/18 19:14 Urine Mucus Moderate /HPF (NEGATIVE) 01/06/18 19:14 Ur Culture Indicated? No/not indicated 01/06/18 19:14 - Assessment and Plan 1: partial SBO. 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 to continue conservative measures with bowel rest , NGT and hydration .. given the choice to be transfered to her surgeon who performed the last surgery . - Problem Patient Problems: Patient Problems Small bowel obstruction (Acute) K56.856
[2018-01-08] MEDS: ZOFRAN INJ 4 MG VIAL IVP PRN (21:54)
[2018-01-08] MEDS ORDERED: NORCO 10/325 TAB PO PRN (22:00)
[2018-01-09] MEDS: MORPHINE SULFATE INJ 2 MG INJ IVP PRN ×6 (02:12→21:35)
[2018-01-09] MEDS: PHENERGAN INJ 25 MG IV PRN ×2 (02:13→21:34)
[2018-01-09] MEDS ORDERED: NS 100 ML IV + SPIKE MINIBAG* 100 ML IV ONE ×2 (05:12→12:57)
[2018-01-09 05:17] LABS: BASOPHILS # (AUTO) 0.1 X10^3/uL (0.0-0.1); BASOPHILS % (AUTO) 0.7 % (0.2-1.0); EOSINOPHILS # (AUTO) 0.1 x10^3/uL (0.0-0.2); EOSINOPHILS % (AUTO) 1.1 % (0.9-2.9); HEMATOCRIT 41.2 % (36.0-47.0); HEMOGLOBIN 13.5 g/dL (12.0-16.0); LYMPHOCYTES # (AUTO) 1.6 X10^3/uL (1.3-2.9); LYMPHOCYTES % (AUTO) 17.7 % (21.0-51.0); MEAN CORPUSCULAR HEMOGLOBIN 30.5 pg (27.0-34.0); MEAN CORPUSCULAR HGB CONC 32.9 g/dL (33.0-35.0); MEAN CORPUSCULAR VOLUME 92.8 fL (80.0-100.0); MEAN PLATELET VOLUME 7.1 fL (7.4-11.0); MONOCYTES # (AUTO) 0.6 x10^3/uL (0.3-0.8); MONOCYTES % (AUTO) 6.3 % (0.0-13.0); NEUTROPHILS # (AUTO) 6.7 x10^3/uL (2.2-4.8); NEUTROPHILS % (AUTO) 74.2 % (42.0-75.0); PLATELET COUNT 172 X10^3/uL (150.0-450.0); RED BLOOD COUNT 4.44 X10^6/uL (3.5-5.4); RED CELL DISTRIBUTION WIDTH 13.2 % (11.6-16.5); WHITE BLOOD COUNT 9.1 X10^3/uL (3.6-10.0)
[2018-01-09 05:29] LABS: ALANINE AMINOTRANSFERASE 60 Units/L (12-78); ALBUMIN 3.1 g/dL (3.4-5.0); ALKALINE PHOSPHATASE 76 Units/L (46-116); ASPARTATE AMINO TRANSFERASE 32 Units/L (15-37); BLOOD UREA NITROGEN 12 mg/dL (7-18); CALCIUM 7.6 mg/dL (8.5-10.1); CARBON DIOXIDE 24.3 mmol/L (21-32); CHLORIDE 107 mmol/L (98-107); COR CA(FOR HYPOALB) 8.3 mg/dL (8.5-10.1); CREATININE 1.19 mg/dL (0.55-1.02); SODIUM 140 mmol/L (136-145); TOTAL PROTEIN 6.4 g/dL (6.4-8.2); eGFR NON BLACK RACES 47 (>60)
[2018-01-09] MEDS: ZOSYN VIAL 3.375 GRAMS IV SCH (05:29)
[2018-01-09] MEDS: NS + KCL 20 MEQ/L 1,000 ML IV SCH ×4 (05:29→21:35)
[2018-01-09] MEDS: SYNTHROID 75 mcg TAB PO SCH (06:07)
--- NOTE | 2018-01-09 08:25 | DR.H&P ---
H&P - History & Physical for Day of: H&P Date: 01/07/18 - Chief Complaint Chief Complaint: NAUSEA, VOMITING, CONSTIPATION, ABDOMINAL PAIN - History of Present Illness History of Present Illness: IS A 73 YEAR OLD PATIENT OF OURS WHO PRESENTED TO THE EMERGENCY ROOM WITH COMPLAINTS OF CONSTIPATION, VOMITING, AND ABDOMINAL PAIN. SHE REPORTS THAT SHE IS NOT ABLE TO HOLD DOWN FOOD, FLUIDS, OR MEDICATIONS. ASSOCIATED SYMPTOMS INCLUDE WEAKNESS AND FATIGUE. SYMPTOMS STARTED TWO DAYS AGO. PATIENT HAS A HISTORY OF BOWEL OBSTRUCTION WITH A COLOSTOMY. ON ARRIVAL, VITALS WERE 98.0-79-18-95%-112/77. LABS WERE OBTAINED. ABNORMAL LAB VALUES INCLUDE THE FOLLOWING: WBC 16.5, HGB 16.7, HCT 49.0, SODIUMK 132, POTASSIUM 3.2, CHLORIDE 93, CREATININE 1.34, GLUCOSE 119, AST 52, ALT 105. URINALYSIS REVEALED: WBC 3-5, RBC 3-5, LEUKOCYTES 1+, BACTERIA TRACE, OCCULT BLOOD 1+. AN ABDOMEN/PELVIS CT WITH CONTRAST WAS OBTAINED AND REVEALED: Findings of high-grade small bowel obstruction likely secondary to adhesions in the low left abdomen anteriorly. Focal mesenteric edema suggests vascular congestion. Would recommend surgical consultation. WAS CONSULTED. HE RECOMMENED TO KEEP PATIENT NPO AND PLACE AN NG TUBE. NG TUBE WAS PLACED IN THE ER AND SHE WAS HOOKED UP TO INTERMITTENT SUCTION. SHE WAS STARTED ON IV PROTONIX AND PEPCID WELL LOVENOX 40MG SC DAILY FORT DVT PROPHYLAXIS. SHE WAS ALSO STARTED ON NORMAL SALINE WITH 20MEQ KCL AT 150ML/HR AND ZOSYN 3.375GM IV TID. WE PLAN TO FOLLOW UP WITH AM LABS AND KUB AND CONTINUE TO MONITOR PATIENT. - Past Medical History Past Medical History: Hypertension Additional Medical History: Cataracts, Diverticulosis, back pain, DDD, Scoliosis, Previous blood transfusion - Past Surgical History Surgical History: Bowel Resection, Hysterectomy, Ortho Surgery, Other Additional Surgical History: Colostomy approx. 6 weeks ago, Bilateral knee replacement, Shoulder replacement, hip replacement. - Family History Family Medical History: Diabetes Mellitus, [place], Hypertension - Social History Type of Tobacco Use: None Does any household member use tobacco: No Alcohol Use: None Drug Use: None - Medications Home Medications: ciprofloxacin [From Cipro] Allergy (Verified 12/17/16 11:31) metronidazole [From Flagyl] Allergy (Verified 12/17/16 11:31) CONTINUE taking the following medications ascorbic acid (vitamin C) [Vitamin C] 500 mg PO DAILY 01/06/18 [History] cefdinir 300 mg PO BID 01/06/18 [History] clonazepam 2 mg PO HS 01/06/18 [History] famotidine 20 mg PO HS 01/06/18 [History] gabapentin 300 mg PO BID 01/06/18 [History] hydrocodone-acetaminophen 10 - 325 mg PO TID 01/06/18 [History] levothyroxine 75 mcg PO DAILY 01/06/18 [History] lisinopril 2.5 mg PO DAILY PRN 01/06/18 [History] methylprednisolone See Rx Instructions .ROUTE .COMPLEX 01/06/18 [History] montelukast 10 mg PO BID 01/06/18 [History] vkafogqz-jfm-WW-lycopen-lutein [Centrum Silver] 1 tab PO DAILY 01/06/18 [History] pantoprazole 40 mg PO DAILY 01/06/18 [History] potassium chloride [Klor-Con M10] 10 meq PO DAILY 01/06/18 [History] promethazine 25 mg PO PRN PRN 01/06/18 [History] ropinirole 0.5 mg PO HS 01/06/18 [History] tizanidine 4 mg PO HS 01/06/18 [History] triamterene-hydrochlorothiazid 1 tab PO DAILY 01/06/18 [History] - Review of Systems Constitutional: Weakness, Malaise. denies: Fever Eyes: No Symptoms Reported ENT: No Symptoms Reported Respiratory: No Symptoms Reported Cardiovascular: No Symptoms Reported Gastrointestinal: Nausea, Vomiting, Abdominal Pain, Constipation. denies: Melena, Hematochezia Genitourinary: No Symptoms Reported Musculoskeletal: Back Pain Skin: No Symptoms Reported Neurological: Weakness - Physical Exam Vital Signs: Temperature 99.0 F Pulse Rate [Brachial] 50 Pulse Rate 79 Respiratory Rate 16 Blood Pressure [Left Arm] 154/68 Blood Pressure [Right Arm] 175/80 Blood Pressure 112/77 O2 Sat by Pulse Oximetry 93 Oriented: Normal Eyes: Normal Ear: Normal Nose: Normal Throat: Normal Respiratory: Diminished Throughout Cardiovascular: Normal. negative: S3, S4, Murmur : Normal Auscultation: Bowel Sounds: Decreased Palpation: Normal Tenderness: Diffuse, Moderate. negative: Rebound, Guarding, Rigidity Skin: Normal Musculoskeletal: Normal Psychiatric: Normal Mood Description: Calm Affect: Normal Speech Pattern: Clear - Assessment/Plan (1) Small bowel obstruction Status: Acute Plan: NG TUBE, IV ZOSYN, IV PEPCID, IV PROTONIX, PAIN AND NAUSEA CONTROL, CONTINUE TO MONITOR - Allergies Allergies/Adverse Reactions: Allergies Allergy/AdvReac Type Severity Reaction Status Date / Time ciprofloxacin [From Cipro] Allergy Verified 12/17/16 11:31 metronidazole [From Flagyl] Allergy Verified 12/17/16 11:31
[2018-01-09] MEDS ORDERED: SINGULAIR TAB 10 MG PO SCH (09:00)
[2018-01-09] MEDS ORDERED: PATIENT'S HOME MEDICATION (Multivit-Min-Fa-Lycopen-Lutein [Centrum Silver] 1 TAB) PO SCH (09:00)
[2018-01-09] MEDS ORDERED: PATIENT'S HOME MEDICATION (Levothyroxine [Levothyroxine] 75 MCG) PO SCH (09:00)
--- NOTE | 2018-01-09 10:18 | RAD ---
HISTORY: Follow-up for small bowel obstruction. Study: KUB Comparison: 01/08/2018 Findings: A small to moderate amount of small bowel gas is noted in minimally distended loops. The degree of di stention has increased slightly when compared to the prior examination. A paucity of colonic gas is n oted. A nasogastric tube is present appearing to be in satisfactory position. Xcpm-az-brhoamtd convex left lumbar scoliosis is noted. A left hip prosthesis is present. Small calcifications are present i n the anatomic pelvis. These most likely are phleboliths. Distal ureteral calculi cannot be exclude d. Clinical correlation is recommended. IMPRESSION: 1. Small to moderate amount of small bowel gas in minimally distended loops. The degree of distention has increased slightly. I cannot exclude a persistent bowel obstruction. Continued follow-up is keegan mmended. Reported By:
[2018-01-09] MEDS: LOVENOX INJ 40 MG SYR SC SCH (10:28)
[2018-01-09] MEDS: ZESTRIL TAB 5 MG PO SCH (11:00)
[2018-01-09] MEDS: MICRO K EXTEN CAP 10 MEQ PO SCH (11:00)
[2018-01-09] MEDS: MAXZIDE 37.5/25 MG PO SCH (11:00)
[2018-01-09] MEDS: PROTONIX TAB 40 MG PO SCH (11:00)
[2018-01-09] MEDS: NEURONTIN CAP 300 MG PO SCH ×2 (11:00→21:35)
[2018-01-09] MEDS: VITAMIN C PO SCH (11:01)
[2018-01-09] MEDS: TAB-A-VITE PO SCH (11:01)
[2018-01-09] MEDS: ZOSYN VIAL 3.375 GRAMS 3.375 G in NS 100 ML IV + SPIKE MINIBAG* 100 ML IV SCH ×2 (13:07→21:36)
--- NOTE | 2018-01-09 17:24 | DR.PROGNOT ---
Hospital Progress Notes - Progress Note for Day of: Progress Note Date: 01/09/18 - Chief Complaint Chief Complaint: had small BM. still having mid abdominal pain requiring narcotics . colostomy is not functioning yet .. moderate drainage in NGT . temp is 99 and WBC is normal now. abdominal xray showed some improvement with air in the colon and persistent dilated SB loops .. clinically pt is doing better .. - Past Medical Family Social History Past Med/Fam/Surg Hx: No changes since H&P Allergies: Allergies ciprofloxacin [From Cipro] Allergy (Verified 12/17/16 11:31) metronidazole [From Flagyl] Allergy (Verified 12/17/16 11:31) - Review Of Systems ROS: No change since H&P - Vital Signs Vital Signs: Temperature 97.9 F Pulse Rate [Brachial] 53 Pulse Rate 79 Respiratory Rate 20 Blood Pressure [Left Arm] 160/73 Blood Pressure [Right Arm] 175/80 Blood Pressure 112/77 O2 Sat by Pulse Oximetry 99 - Physical Exam Oriented: Normal Eyes: Normal Ear: Normal Nose: Normal Throat: Normal Respiratory: Normal Cardiovascular: Normal. negative: S3, S4, Murmur : Normal GI:Auscultation: Decreased GI:Palpation: Normal GI: Tenderness: Diffuse, Moderate. negative: Rebound, Guarding, Rigidity Skin: Normal Musculoskeletal: Normal Psychiatric: Normal Mood Description: Calm Affect: Normal Speech Pattern: Clear - Laboratory and Diagnostics Result Diagrams: 01/09/18 05:00 01/09/18 05:00 Labs: Laboratory WBC 9.1 X10^3/uL (3.6-10.0) 01/09/18 05:00 RBC 4.44 X10^6/uL (3.5-5.4) 01/09/18 05:00 Hgb 13.5 g/dL (12.0-16.0) 01/09/18 05:00 Hct 41.2 % (36.0-47.0) 01/09/18 05:00 MCV 92.8 fL (80.0-100.0) 01/09/18 05:00 MCH 30.5 pg (27.0-34.0) 01/09/18 05:00 MCHC 32.9 g/dL (33.0-35.0) L 01/09/18 05:00 RDW 13.2 % (11.6-16.5) 01/09/18 05:00 Plt Count 172 X10^3/uL (150.0-450.0) 01/09/18 05:00 MPV 7.1 fL (7.4-11.0) L 01/09/18 05:00 Neut % (Auto) 74.2 % (42.0-75.0) 01/09/18 05:00 Lymph % (Auto) 17.7 % (21.0-51.0) L 01/09/18 05:00 [place] % (Auto) 6.3 % (0.0-13.0) 01/09/18 05:00 Eos % (Auto) 1.1 % (0.9-2.9) 01/09/18 05:00 Baso % (Auto) 0.7 % (0.2-1.0) 01/09/18 05:00 Neut # (Auto) 6.7 x10^3/uL (2.2-4.8) H 01/09/18 05:00 Lymph # (Auto) 1.6 X10^3/uL (1.3-2.9) 01/09/18 05:00 [place] # (Auto) 0.6 x10^3/uL (0.3-0.8) 01/09/18 05:00 Eos # (Auto) 0.1 x10^3/uL (0.0-0.2) 01/09/18 05:00 Baso # (Auto) 0.1 X10^3/uL (0.0-0.1) 01/09/18 05:00 Absolute Nucleated RBC 0.0 /100WBC 01/09/18 05:00 Sodium 140 mmol/L (136-145) 01/09/18 05:00 Corrected Sodium TNP 01/09/18 05:00 Potassium 4.9 mmol/L (3.5-5.1) 01/09/18 05:00 Chloride 107 mmol/L (98-107) 01/09/18 05:00 Carbon Dioxide 24.3 mmol/L (21-32) 01/09/18 05:00 BUN 12 mg/dL (7-18) 01/09/18 05:00 Creatinine 1.19 mg/dL (0.55-1.02) H 01/09/18 05:00 Est GFR (MDRD) Af Amer 57 (>60) L 01/09/18 05:00 Est GFR (MDRD) Non-Af 47 (>60) L 01/09/18 05:00 Glucose 71 mg/dL (65-99) 01/09/18 05:00 Calcium 7.6 mg/dL (8.5-10.1) L 01/09/18 05:00 Corrected Calcium 8.3 mg/dL (8.5-10.1) L 01/09/18 05:00 Magnesium 1.9 mg/dL (1.7-2.9) 01/07/18 06:08 Total Bilirubin 0.90 mg/dL (0.2-1.0) 01/09/18 05:00 AST 32 Units/L (15-37) 01/09/18 05:00 ALT 60 Units/L (12-78) 01/09/18 05:00 Alkaline Phosphatase 76 Units/L (46-116) 01/09/18 05:00 Total Protein 6.4 g/dL (6.4-8.2) 01/09/18 05:00 Albumin 3.1 g/dL (3.4-5.0) L 01/09/18 05:00 Globulin 3.3 g/dL (2.5-4.5) 01/09/18 05:00 Albumin/Globulin Ratio 0.9 Ratio (1.1-2.1) L 01/09/18 05:00 Amylase 48 Units/L (25-115) 01/06/18 17:28 Lipase 117 Units/L (73-393) 01/06/18 17:28 Specimen Type Random urine 01/06/18 19:14 Urine Color Yellow (YELLOW) 01/06/18 19:14 Urine Appearance Slightly hazy (CLEAR) 01/06/18 19:14 Urine pH 5.0 (5.0 - 8.0) 01/06/18 19:14 Ur Specific [place] 1.015 (1.000-1.030) 01/06/18 19:14 Urine Protein 2+ (NEGATIVE) 01/06/18 19:14 Urine Glucose (UA) Negative (NEGATIVE) 01/06/18 19:14 Urine Ketones Negative (NEGATIVE) 01/06/18 19:14 Urine Occult Blood 1+ (NEGATIVE) 01/06/18 19:14 Urine Nitrite Negative (NEGATIVE) 01/06/18 19:14 Urine Bilirubin Negative (NEGATIVE) 01/06/18 19:14 Urine Urobilinogen Normal (NORMAL) 01/06/18 19:14 Ur Leukocyte Esterase 1+ (NEGATIVE) 01/06/18 19:14 Urine RBC 3-5 /HPF (NONE SEEN) 01/06/18 19:14 Urine WBC 3-5 /HPF (NONE SEEN) 01/06/18 19:14 Ur Squamous Epith Cells Few /HPF (NEGATIVE) 01/06/18 19:14 Urine Bacteria Trace /HPF (NEGATIVE) 01/06/18 19:14 Urine Mucus Moderate /HPF (NEGATIVE) 01/06/18 19:14 Ur Culture Indicated? No/not indicated 01/06/18 19:14 - Assessment and Plan 1: partial SBO. 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 to continue conservative measures with bowel rest , NGT and hydration .. repeat abd xray in am hopefully we could d/c NGT - Problem Patient Problems: Patient Problems Small bowel obstruction (Acute) K56.500
--- NOTE | 2018-01-09 20:59 | PCM.PROG ---
Progress Note - Progress Note for Day of Date of Exam: 01/07/18 - Past Medical Family Social History Past Med/Fam/Surg Hx: No changes since H&P Allergies: Allergies ciprofloxacin [From Cipro] Allergy (Verified 12/17/16 11:31) metronidazole [From Flagyl] Allergy (Verified 12/17/16 11:31) - Review of Systems ROS: No change since H&P - Vital Signs and I&O's Vital Signs: Temperature 97.9 F Pulse Rate [Brachial] 53 Pulse Rate 79 Respiratory Rate 20 Blood Pressure [Left Arm] 160/73 Blood Pressure [Right Arm] 175/80 Blood Pressure 112/77 O2 Sat by Pulse Oximetry 99 Intake and Output: Intake & Output 01/07/18 01/08/18 01/09/18 01/10/18 11:59 11:59 11:59 11:59 Intake Total 1200 / 1200 3850 / 3850 3895 / 3895 2019 Output Total 900 / 900 400 / 400 129 / 129 100 / 100 Balance 300 / 300 3450 / 3450 3766 / 3766 1920 / 1920 - Physical Exam Oriented: Normal Eyes: Normal Ear: Normal Nose: Normal Throat: Normal Respiratory: Normal Cardiovascular: Normal. negative: S3, S4, Murmur : Normal Auscultation: Bowel Sounds: Decreased Palpation: Normal Tenderness: Diffuse, Moderate. negative: Rebound, Guarding, Rigidity Skin: Normal Musculoskeletal: Normal Psychiatric: Normal Mood Description: Calm Affect: Normal Speech Pattern: Clear - Laboratory and Diagnostics Result Diagrams: 01/09/18 05:00 01/09/18 05:00 Labs: Laboratory WBC 9.1 X10^3/uL (3.6-10.0) 01/09/18 05:00 RBC 4.44 X10^6/uL (3.5-5.4) 01/09/18 05:00 Hgb 13.5 g/dL (12.0-16.0) 01/09/18 05:00 Hct 41.2 % (36.0-47.0) 01/09/18 05:00 MCV 92.8 fL (80.0-100.0) 01/09/18 05:00 MCH 30.5 pg (27.0-34.0) 01/09/18 05:00 MCHC 32.9 g/dL (33.0-35.0) L 01/09/18 05:00 RDW 13.2 % (11.6-16.5) 01/09/18 05:00 Plt Count 172 X10^3/uL (150.0-450.0) 01/09/18 05:00 MPV 7.1 fL (7.4-11.0) L 01/09/18 05:00 Neut % (Auto) 74.2 % (42.0-75.0) 01/09/18 05:00 Lymph % (Auto) 17.7 % (21.0-51.0) L 01/09/18 05:00 [place] % (Auto) 6.3 % (0.0-13.0) 01/09/18 05:00 Eos % (Auto) 1.1 % (0.9-2.9) 01/09/18 05:00 Baso % (Auto) 0.7 % (0.2-1.0) 01/09/18 05:00 Neut # (Auto) 6.7 x10^3/uL (2.2-4.8) H 01/09/18 05:00 Lymph # (Auto) 1.6 X10^3/uL (1.3-2.9) 01/09/18 05:00 [place] # (Auto) 0.6 x10^3/uL (0.3-0.8) 01/09/18 05:00 Eos # (Auto) 0.1 x10^3/uL (0.0-0.2) 01/09/18 05:00 Baso # (Auto) 0.1 X10^3/uL (0.0-0.1) 01/09/18 05:00 Absolute Nucleated RBC 0.0 /100WBC 01/09/18 05:00 Sodium 140 mmol/L (136-145) 01/09/18 05:00 Corrected Sodium TNP 01/09/18 05:00 Potassium 4.9 mmol/L (3.5-5.1) 01/09/18 05:00 Chloride 107 mmol/L (98-107) 01/09/18 05:00 Carbon Dioxide 24.3 mmol/L (21-32) 01/09/18 05:00 BUN 12 mg/dL (7-18) 01/09/18 05:00 Creatinine 1.19 mg/dL (0.55-1.02) H 01/09/18 05:00 Est GFR (MDRD) Af Amer 57 (>60) L 01/09/18 05:00 Est GFR (MDRD) Non-Af 47 (>60) L 01/09/18 05:00 Glucose 71 mg/dL (65-99) 01/09/18 05:00 Calcium 7.6 mg/dL (8.5-10.1) L 01/09/18 05:00 Corrected Calcium 8.3 mg/dL (8.5-10.1) L 01/09/18 05:00 Magnesium 1.9 mg/dL (1.7-2.9) 01/07/18 06:08 Total Bilirubin 0.90 mg/dL (0.2-1.0) 01/09/18 05:00 AST 32 Units/L (15-37) 01/09/18 05:00 ALT 60 Units/L (12-78) 01/09/18 05:00 Alkaline Phosphatase 76 Units/L (46-116) 01/09/18 05:00 Total Protein 6.4 g/dL (6.4-8.2) 01/09/18 05:00 Albumin 3.1 g/dL (3.4-5.0) L 01/09/18 05:00 Globulin 3.3 g/dL (2.5-4.5) 01/09/18 05:00 Albumin/Globulin Ratio 0.9 Ratio (1.1-2.1) L 01/09/18 05:00 Amylase 48 Units/L (25-115) 01/06/18 17:28 Lipase 117 Units/L (73-393) 01/06/18 17:28 Specimen Type Random urine 01/06/18 19:14 Urine Color Yellow (YELLOW) 01/06/18 19:14 Urine Appearance Slightly hazy (CLEAR) 01/06/18 19:14 Urine pH 5.0 (5.0 - 8.0) 01/06/18 19:14 Ur Specific [place] 1.015 (1.000-1.030) 01/06/18 19:14 Urine Protein 2+ (NEGATIVE) 01/06/18 19:14 Urine Glucose (UA) Negative (NEGATIVE) 01/06/18 19:14 Urine Ketones Negative (NEGATIVE) 01/06/18 19:14 Urine Occult Blood 1+ (NEGATIVE) 01/06/18 19:14 Urine Nitrite Negative (NEGATIVE) 01/06/18 19:14 Urine Bilirubin Negative (NEGATIVE) 01/06/18 19:14 Urine Urobilinogen Normal (NORMAL) 01/06/18 19:14 Ur Leukocyte Esterase 1+ (NEGATIVE) 01/06/18 19:14 Urine RBC 3-5 /HPF (NONE SEEN) 01/06/18 19:14 Urine WBC 3-5 /HPF (NONE SEEN) 01/06/18 19:14 Ur Squamous Epith Cells Few /HPF (NEGATIVE) 01/06/18 19:14 Urine Bacteria Trace /HPF (NEGATIVE) 01/06/18 19:14 Urine Mucus Moderate /HPF (NEGATIVE) 01/06/18 19:14 Ur Culture Indicated? No/not indicated 01/06/18 19:14 - Plan (1) Small bowel obstruction Status: Acute Plan: NG TUBE, IV ZOSYN, IV PEPCID, IV PROTONIX, PAIN AND NAUSEA CONTROL, CONTINUE TO MONITOR
[2018-01-09] MEDS: KLONOPIN TAB 1 MG PO SCH (21:34)
[2018-01-09] MEDS: REQUIP PO SCH (21:35)
[2018-01-09] MEDS: SINGULAIR TAB 10 MG PO SCH (21:35)
[2018-01-09] MEDS: ZANAFLEX PO SCH (21:36)
[2018-01-10] MEDS: MORPHINE SULFATE INJ 2 MG INJ IVP PRN ×7 (00:24→22:14)
[2018-01-10] MEDS: NS + KCL 20 MEQ/L 1,000 ML IV SCH ×7 (02:16→22:14)
[2018-01-10] MEDS: ZOSYN VIAL 3.375 GRAMS 3.375 G in NS 100 ML IV + SPIKE MINIBAG* 100 ML IV SCH ×3 (05:23→21:00)
[2018-01-10] MEDS: SYNTHROID 75 mcg TAB PO SCH (06:13)
--- NOTE | 2018-01-10 06:35 | RAD ---
HISTORY: Follow-up small bowel obstruction Study: KUB Comparison: 01/09/2018 Findings: There is nasogastric tube with its tip and side hole within the stomach. There is persistent mild dil atation of some mid small bowel loops. Little gas is present distally. Findings are consistent with p ersistent small-bowel obstruction not significantly changed from the prior examination. No abnormal m asses or abnormal calcifications are identified. IMPRESSION: Findings still consistent with small-bowel obstruction Reported By:
[2018-01-10 06:40] LABS: BASOPHILS # (AUTO) 0.1 X10^3/uL (0.0-0.1); BASOPHILS % (AUTO) 0.7 % (0.2-1.0); EOSINOPHILS # (AUTO) 0.1 x10^3/uL (0.0-0.2); EOSINOPHILS % (AUTO) 1.3 % (0.9-2.9); HEMATOCRIT 40.2 % (36.0-47.0); HEMOGLOBIN 13.5 g/dL (12.0-16.0); LYMPHOCYTES # (AUTO) 1.4 X10^3/uL (1.3-2.9); LYMPHOCYTES % (AUTO) 18.5 % (21.0-51.0); MEAN CORPUSCULAR HEMOGLOBIN 30.9 pg (27.0-34.0); MEAN CORPUSCULAR HGB CONC 33.6 g/dL (33.0-35.0); MEAN CORPUSCULAR VOLUME 92.1 fL (80.0-100.0); MEAN PLATELET VOLUME 7.5 fL (7.4-11.0); MONOCYTES # (AUTO) 0.5 x10^3/uL (0.3-0.8); NEUTROPHILS # (AUTO) 5.6 x10^3/uL (2.2-4.8); NEUTROPHILS % (AUTO) 72.5 % (42.0-75.0); PLATELET COUNT 157 X10^3/uL (150.0-450.0); RED BLOOD COUNT 4.36 X10^6/uL (3.5-5.4); WHITE BLOOD COUNT 7.7 X10^3/uL (3.6-10.0)
[2018-01-10 06:41] LABS: ALANINE AMINOTRANSFERASE 52 Units/L (12-78); ALBUMIN 3.3 g/dL (3.4-5.0); ALKALINE PHOSPHATASE 76 Units/L (46-116); ASPARTATE AMINO TRANSFERASE 28 Units/L (15-37); BLOOD UREA NITROGEN 11 mg/dL (7-18); CALCIUM 8.4 mg/dL (8.5-10.1); CARBON DIOXIDE 22.2 mmol/L (21-32); CHLORIDE 107 mmol/L (98-107); CREATININE 1.09 mg/dL (0.55-1.02); SODIUM 140 mmol/L (136-145); TOTAL PROTEIN 6.6 g/dL (6.4-8.2); eGFR NON BLACK RACES 52 (>60)
[2018-01-10] MEDS: LOVENOX INJ 40 MG SYR SC SCH (08:27)
[2018-01-10] MEDS: MAXZIDE 37.5/25 MG PO SCH (10:17)
[2018-01-10] MEDS: ZESTRIL TAB 5 MG PO SCH (10:18)
[2018-01-10] MEDS: MICRO K EXTEN CAP 10 MEQ PO SCH (10:18)
[2018-01-10] MEDS: PROTONIX TAB 40 MG PO SCH (10:18)
[2018-01-10] MEDS: NEURONTIN CAP 300 MG PO SCH ×2 (10:18→20:59)
[2018-01-10] MEDS: VITAMIN C PO SCH (10:18)
[2018-01-10] MEDS: TAB-A-VITE PO SCH (10:19)
--- NOTE | 2018-01-10 10:40 | PCM.PROG ---
Progress Note - Progress Note for Day of Date of Exam: 01/08/18 - Subjective Subjective: WAS ADMITTED FOR A SMALL BOWEL OBSTRUCTION. TODAY, SHE IS ALERT AND ORIENTED, LYING IN BED ON MORNING ROUNDS. SHE CONTINUES WITH AN NG TUBE TO LOW INTERMITTENT SUCTION TODAY. THERE IS MODERATE DRAINAGE IN TUBE. SHE CONTINUES WITH COMPLAINTS OF ABDOMINAL PAIN AND NAUSEA WITH NOT MUCH IMPROVEMENT SINCE YESTERDAY. ON EXAMINATION, HEART IS REGULAR IN RATE AND RHYTHM. BILATERAL LUNGS ARE NOTED WITH DIMINISHED LUNG SOUNDS THROUGHOUT. ABDOMEN IS DISTENDED AND NOTED WITH MODERATE TENDERNESS TO PALPATION. HYPOACTIVE BOWEL SOUNDS NOTED. THERE IS NO DRAINAGE IN COLOSTOMY BAG AT THIS TIME. HER VITALS THIS MORNING ARE 98.4-63-18-94%-122/65. LABS WERE OBTAINED. ABNORMAL LAB VALUES INCLUDE THE FOLLOWING: CHLORIDE 108, CREATININE 1.28, CALCIUM 7.6, TOTAL PROTEIN 5.8, ALBUMIN 2.9. A KUB WAS OBTAINED THIS MORNING AND REVEALED: Increasing small bowel distention consistent with obstruction. TODAY, WE WILL CONTINUE WITH NG TUBE TO INTERMITTENT SUCTION, NPO, IV ANTIBIOTICS, AND PAIN MANAGEMENT. OTHERWISE, WE WILL FOLLOW UP WITH AM LABS AND CONTINUE TO MONITOR. - Past Medical Family Social History Past Med/Fam/Surg Hx: No changes since H&P Allergies: Allergies ciprofloxacin [From Cipro] Allergy (Verified 12/17/16 11:31) metronidazole [From Flagyl] Allergy (Verified 12/17/16 11:31) - Review of Systems ROS: No change since H&P - Vital Signs and I&O's Vital Signs: Temperature 98.3 F Pulse Rate [Brachial] 53 Pulse Rate 79 Respiratory Rate 18 Blood Pressure [Left Arm] 147/72 Blood Pressure [Right Arm] 175/80 Blood Pressure 112/77 O2 Sat by Pulse Oximetry 96 Intake and Output: Intake & Output 01/07/18 01/08/18 01/09/18 01/10/18 11:59 11:59 11:59 11:59 Intake Total 1200 / 1200 3850 / 3850 3895 / 3895 4220 / 4220 Output Total 900 / 900 400 / 400 129 / 129 600 / 600 Balance 300 / 300 3450 / 3450 3766 / 3766 3620 / 3620 - Physical Exam Oriented: Normal Eyes: Normal Ear: Normal Nose: Normal Throat: Normal Respiratory: Normal Cardiovascular: Normal. negative: S3, S4, Murmur : Normal Auscultation: Bowel Sounds: Decreased Tenderness: Diffuse, Moderate. negative: Rebound, Guarding, Rigidity Skin: Normal Musculoskeletal: Normal Psychiatric: Normal Mood Description: Calm Affect: Normal Speech Pattern: Clear - Laboratory and Diagnostics Result Diagrams: 01/10/18 06:07 01/10/18 06:07 Labs: Laboratory WBC 7.7 X10^3/uL (3.6-10.0) 01/10/18 06:07 RBC 4.36 X10^6/uL (3.5-5.4) 01/10/18 06:07 Hgb 13.5 g/dL (12.0-16.0) 01/10/18 06:07 Hct 40.2 % (36.0-47.0) 01/10/18 06:07 MCV 92.1 fL (80.0-100.0) 01/10/18 06:07 MCH 30.9 pg (27.0-34.0) 01/10/18 06:07 MCHC 33.6 g/dL (33.0-35.0) 01/10/18 06:07 RDW 13.0 % (11.6-16.5) 01/10/18 06:07 Plt Count 157 X10^3/uL (150.0-450.0) 01/10/18 06:07 MPV 7.5 fL (7.4-11.0) 01/10/18 06:07 Neut % (Auto) 72.5 % (42.0-75.0) 01/10/18 06:07 Lymph % (Auto) 18.5 % (21.0-51.0) L 01/10/18 06:07 [place] % (Auto) 7.0 % (0.0-13.0) 01/10/18 06:07 Eos % (Auto) 1.3 % (0.9-2.9) 01/10/18 06:07 Baso % (Auto) 0.7 % (0.2-1.0) 01/10/18 06:07 Neut # (Auto) 5.6 x10^3/uL (2.2-4.8) H 01/10/18 06:07 Lymph # (Auto) 1.4 X10^3/uL (1.3-2.9) 01/10/18 06:07 [place] # (Auto) 0.5 x10^3/uL (0.3-0.8) 01/10/18 06:07 Eos # (Auto) 0.1 x10^3/uL (0.0-0.2) 01/10/18 06:07 Baso # (Auto) 0.1 X10^3/uL (0.0-0.1) 01/10/18 06:07 Absolute Nucleated RBC 0.0 /100WBC 01/10/18 06:07 Sodium 140 mmol/L (136-145) 01/10/18 06:07 Corrected Sodium TNP 01/10/18 06:07 Potassium 5.1 mmol/L (3.5-5.1) 01/10/18 06:07 Chloride 107 mmol/L (98-107) 01/10/18 06:07 Carbon Dioxide 22.2 mmol/L (21-32) 01/10/18 06:07 BUN 11 mg/dL (7-18) 01/10/18 06:07 Creatinine 1.09 mg/dL (0.55-1.02) H 01/10/18 06:07 Est GFR (MDRD) Af Amer > 60 (>60) 01/10/18 06:07 Est GFR (MDRD) Non-Af 52 (>60) L 01/10/18 06:07 Glucose 80 mg/dL (65-99) 01/10/18 06:07 Calcium 8.4 mg/dL (8.5-10.1) L 01/10/18 06:07 Corrected Calcium 9.0 mg/dL (8.5-10.1) 01/10/18 06:07 Magnesium 1.9 mg/dL (1.7-2.9) 01/07/18 06:08 Total Bilirubin 0.90 mg/dL (0.2-1.0) 01/10/18 06:07 AST 28 Units/L (15-37) 01/10/18 06:07 ALT 52 Units/L (12-78) 01/10/18 06:07 Alkaline Phosphatase 76 Units/L (46-116) 01/10/18 06:07 Total Protein 6.6 g/dL (6.4-8.2) 10/23/18 06:07 Albumin 3.3 g/dL (3.4-5.0) L 01/10/18 06:07 Globulin 3.3 g/dL (2.5-4.5) 01/10/18 06:07 Albumin/Globulin Ratio 1.0 Ratio (1.1-2.1) L 01/10/18 06:07 Amylase 48 Units/L (25-115) 01/06/18 17:28 Lipase 117 Units/L (73-393) 01/06/18 17:28 Specimen Type Random urine 01/06/18 19:14 Urine Color Yellow (YELLOW) 01/06/18 19:14 Urine Appearance Slightly hazy (CLEAR) 01/06/18 19:14 Urine pH 5.0 (5.0 - 8.0) 01/06/18 19:14 Ur Specific [place] 1.015 (1.000-1.030) 01/06/18 19:14 Urine Protein 2+ (NEGATIVE) 01/06/18 19:14 Urine Glucose (UA) Negative (NEGATIVE) 01/06/18 19:14 Urine Ketones Negative (NEGATIVE) 01/06/18 19:14 Urine Occult Blood 1+ (NEGATIVE) 01/06/18 19:14 Urine Nitrite Negative (NEGATIVE) 01/06/18 19:14 Urine Bilirubin Negative (NEGATIVE) 01/06/18 19:14 Urine Urobilinogen Normal (NORMAL) 01/06/18 19:14 Ur Leukocyte Esterase 1+ (NEGATIVE) 01/06/18 19:14 Urine RBC 3-5 /HPF (NONE SEEN) 01/06/18 19:14 Urine WBC 3-5 /HPF (NONE SEEN) 01/06/18 19:14 Ur Squamous Epith Cells Few /HPF (NEGATIVE) 01/06/18 19:14 Urine Bacteria Trace /HPF (NEGATIVE) 01/06/18 19:14 Urine Mucus Moderate /HPF (NEGATIVE) 01/06/18 19:14 Ur Culture Indicated? No/not indicated 01/06/18 19:14 - Plan (1) Small bowel obstruction Status: Acute Plan: NG TUBE, IV ZOSYN, IV PEPCID, IV PROTONIX, PAIN AND NAUSEA CONTROL, CONTINUE TO MONITOR
[2018-01-10] MEDS: PHENERGAN INJ 25 MG IV PRN ×3 (12:45→23:36)
[2018-01-10] MEDS: PEPCID 20 MG IV PREMIX* 20 MG/50 ML BAG IV PRN (19:14)
[2018-01-10] MEDS: ZOFRAN INJ 4 MG VIAL IVP PRN (19:14)
[2018-01-10] MEDS: REQUIP PO SCH (20:59)
[2018-01-10] MEDS: KLONOPIN TAB 1 MG PO SCH (20:59)
[2018-01-10] MEDS: SINGULAIR TAB 10 MG PO SCH (20:59)
[2018-01-10] MEDS: ZANAFLEX PO SCH (21:00)
--- NOTE | 2018-01-10 21:28 | PCM.PROG ---
Progress Note - Progress Note for Day of Date of Exam: 01/09/18 - Subjective Subjective: WAS ADMITTED FOR A SMALL BOWEL OBSTRUCTION. TODAY, SHE IS ALERT AND ORIENTED, LYING IN BED ON MORNING ROUNDS. SHE CONTINUES WITH AN NG TUBE TO LOW INTERMITTENT SUCTION TODAY. THERE IS MODERATE DRAINAGE IN TUBE. SHE CONTINUES WITH COMPLAINTS OF ABDOMINAL PAIN AND NAUSEA WITH SLIGHT IMPROVEMENT SINCE YESTERDAY. ON EXAMINATION, HEART IS REGULAR IN RATE AND RHYTHM. BILATERAL LUNGS ARE NOTED WITH DIMINISHED LUNG SOUNDS THROUGHOUT. ABDOMEN IS DISTENDED AND NOTED WITH MODERATE TENDERNESS TO PALPATION. HYPOACTIVE BOWEL SOUNDS NOTED. THERE IS NO DRAINAGE IN COLOSTOMY BAG AT THIS TIME. HER VITALS THIS MORNING ARE 97.9-48-20-97%-155/70. LABS WERE OBTAINED. SHE IS HEMODYNAMICALLY STABLE TODAY. A KUB WAS REPEATED THIS MORNING AND REVEALED: Small to moderate amount of small bowel gas in minimally distended loops. The degree of distention has increased slightly. I cannot exclude a persistent bowel obstruction. Continued follow-up is recommended. TODAY, WE WILL CONTINUE WITH NG TUBE TO INTERMITTENT SUCTION, NPO, IV ANTIBIOTICS, AND PAIN MANAGEMENT. OTHERWISE, WE WILL FOLLOW UP WITH AM LABS AND CONTINUE TO MONITOR. - Past Medical Family Social History Past Med/Fam/Surg Hx: No changes since H&P Allergies: Allergies ciprofloxacin [From Cipro] Allergy (Verified 12/17/16 11:31) metronidazole [From Flagyl] Allergy (Verified 12/17/16 11:31) - Review of Systems ROS: No change since H&P - Vital Signs and I&O's Vital Signs: Temperature 99.2 F Pulse Rate [Brachial] 57 Pulse Rate 79 Respiratory Rate 18 Blood Pressure [Left Arm] 174/77 Blood Pressure [Right Arm] 175/80 Blood Pressure 112/77 O2 Sat by Pulse Oximetry 96 Intake and Output: Intake & Output 01/08/18 01/09/18 01/10/18 01/11/18 11:59 11:59 11:59 11:59 Intake Total 3850 / 3850 3895 / 3895 4220 / 4220 262 / 262 Output Total 400 / 400 129 / 129 600 / 600 Balance 3450 / 3450 3766 / 3766 3620 / 3620 2628 / 2628 - Physical Exam Oriented: Normal Eyes: Normal Ear: Normal Nose: Normal Throat: Normal Respiratory: Normal Cardiovascular: Normal. negative: S3, S4, Murmur : Normal Auscultation: Bowel Sounds: Decreased Palpation: Normal Tenderness: Diffuse, Moderate. negative: Rebound, Guarding, Rigidity Skin: Normal Musculoskeletal: Normal Psychiatric: Normal Mood Description: Calm Affect: Normal Speech Pattern: Clear, Appropriate - Laboratory and Diagnostics Result Diagrams: 01/10/18 06:07 01/10/18 06:07 Labs: Laboratory WBC 7.7 X10^3/uL (3.6-10.0) 01/10/18 06:07 RBC 4.36 X10^6/uL (3.5-5.4) 01/10/18 06:07 Hgb 13.5 g/dL (12.0-16.0) 01/10/18 06:07 Hct 40.2 % (36.0-47.0) 01/10/18 06:07 MCV 92.1 fL (80.0-100.0) 01/10/18 06:07 MCH 30.9 pg (27.0-34.0) 01/10/18 06:07 MCHC 33.6 g/dL (33.0-35.0) 01/10/18 06:07 RDW 13.0 % (11.6-16.5) 01/10/18 06:07 Plt Count 157 X10^3/uL (150.0-450.0) 01/10/18 06:07 MPV 7.5 fL (7.4-11.0) 01/10/18 06:07 Neut % (Auto) 72.5 % (42.0-75.0) 01/10/18 06:07 Lymph % (Auto) 18.5 % (21.0-51.0) L 01/10/18 06:07 [place] % (Auto) 7.0 % (0.0-13.0) 01/10/18 06:07 Eos % (Auto) 1.3 % (0.9-2.9) 01/10/18 06:07 Baso % (Auto) 0.7 % (0.2-1.0) 01/10/18 06:07 Neut # (Auto) 5.6 x10^3/uL (2.2-4.8) H 01/10/18 06:07 Lymph # (Auto) 1.4 X10^3/uL (1.3-2.9) 01/10/18 06:07 [place] # (Auto) 0.5 x10^3/uL (0.3-0.8) 01/10/18 06:07 Eos # (Auto) 0.1 x10^3/uL (0.0-0.2) 01/10/18 06:07 Baso # (Auto) 0.1 X10^3/uL (0.0-0.1) 01/10/18 06:07 Absolute Nucleated RBC 0.0 /100WBC 01/10/18 06:07 Sodium 140 mmol/L (136-145) 01/10/18 06:07 Corrected Sodium TNP 01/10/18 06:07 Potassium 5.1 mmol/L (3.5-5.1) 01/10/18 06:07 Chloride 107 mmol/L (98-107) 01/10/18 06:07 Carbon Dioxide 22.2 mmol/L (21-32) 01/10/18 06:07 BUN 11 mg/dL (7-18) 01/10/18 06:07 Creatinine 1.09 mg/dL (0.55-1.02) H 01/10/18 06:07 Est GFR (MDRD) Af Amer > 60 (>60) 01/10/18 06:07 Est GFR (MDRD) Non-Af 52 (>60) L 01/10/18 06:07 Glucose 80 mg/dL (65-99) 01/10/18 06:07 Calcium 8.4 mg/dL (8.5-10.1) L 01/10/18 06:07 Corrected Calcium 9.0 mg/dL (8.5-10.1) 01/10/18 06:07 Magnesium 1.9 mg/dL (1.7-2.9) 01/07/18 06:08 Total Bilirubin 0.90 mg/dL (0.2-1.0) 01/10/18 06:07 AST 28 Units/L (15-37) 01/10/18 06:07 ALT 52 Units/L (12-78) 01/10/18 06:07 Alkaline Phosphatase 76 Units/L (46-116) 01/10/18 06:07 Total Protein 6.6 g/dL (6.4-8.2) 01/10/18 06:07 Albumin 3.3 g/dL (3.4-5.0) L 01/10/18 06:07 Globulin 3.3 g/dL (2.5-4.5) 01/10/18 06:07 Albumin/Globulin Ratio 1.0 Ratio (1.1-2.1) L 01/10/18 06:07 Amylase 48 Units/L (25-115) 01/06/18 17:28 Lipase 117 Units/L (73-393) 01/06/18 17:28 Specimen Type Random urine 01/06/18 19:14 Urine Color Yellow (YELLOW) 01/06/18 19:14 Urine Appearance Slightly hazy (CLEAR) 01/06/18 19:14 Urine pH 5.0 (5.0 - 8.0) 01/06/18 19:14 Ur Specific K[place] 1.015 (1.000-1.030) 01/06/18 19:14 Urine Protein 2+ (NEGATIVE) 01/06/18 19:14 Urine Glucose (UA) Negative (NEGATIVE) 01/06/18 19:14 Urine Ketones Negative (NEGATIVE) 01/06/18 19:14 Urine Occult Blood 1+ (NEGATIVE) 01/06/18 19:14 Urine Nitrite Negative (NEGATIVE) 01/06/18 19:14 Urine Bilirubin Negative (NEGATIVE) 01/06/18 19:14 Urine Urobilinogen Normal (NORMAL) 01/06/18 19:14 Ur Leukocyte Esterase 1+ (NEGATIVE) 01/06/18 19:14 Urine RBC 3-5 /HPF (NONE SEEN) 01/06/18 19:14 Urine WBC 3-5 /HPF (NONE SEEN) 01/06/18 19:14 Ur Squamous Epith Cells Few /HPF (NEGATIVE) 01/06/18 19:14 Urine Bacteria Trace /HPF (NEGATIVE) 01/06/18 19:14 Urine Mucus Moderate /HPF (NEGATIVE) 01/06/18 19:14 Ur Culture Indicated? No/not indicated 01/06/18 19:14 - Plan (1) Small bowel obstruction Status: Acute Plan: NG TUBE, IV ZOSYN, IV PEPCID, IV PROTONIX, PAIN AND NAUSEA CONTROL, CONTINUE TO MONITOR
[2018-01-11] MEDS: MORPHINE SULFATE INJ 2 MG INJ IVP PRN ×3 (00:44→08:02)
[2018-01-11] MEDS: ZOFRAN INJ 4 MG VIAL IVP PRN ×2 (03:26→08:43)
[2018-01-11] MEDS: ZOSYN VIAL 3.375 GRAMS 3.375 G in NS 100 ML IV + SPIKE MINIBAG* 100 ML IV SCH (05:25)
[2018-01-11] MEDS: NS + KCL 20 MEQ/L 1,000 ML IV SCH ×2 (05:26→06:13)
[2018-01-11 05:58] LABS: BASOPHILS % (AUTO) 0.5 % (0.2-1.0); EOSINOPHILS # (AUTO) 0.1 x10^3/uL (0.0-0.2); EOSINOPHILS % (AUTO) 0.7 % (0.9-2.9); HEMATOCRIT 38.2 % (36.0-47.0); HEMOGLOBIN 12.9 g/dL (12.0-16.0); LYMPHOCYTES # (AUTO) 1.2 X10^3/uL (1.3-2.9); LYMPHOCYTES % (AUTO) 15.4 % (21.0-51.0); MEAN CORPUSCULAR HEMOGLOBIN 31.3 pg (27.0-34.0); MEAN CORPUSCULAR HGB CONC 33.9 g/dL (33.0-35.0); MEAN CORPUSCULAR VOLUME 92.4 fL (80.0-100.0); MEAN PLATELET VOLUME 7.7 fL (7.4-11.0); MONOCYTES # (AUTO) 0.7 x10^3/uL (0.3-0.8); MONOCYTES % (AUTO) 8.7 % (0.0-13.0); NEUTROPHILS # (AUTO) 5.9 x10^3/uL (2.2-4.8); NEUTROPHILS % (AUTO) 74.7 % (42.0-75.0); PLATELET COUNT 154 X10^3/uL (150.0-450.0); RED BLOOD COUNT 4.13 X10^6/uL (3.5-5.4); RED CELL DISTRIBUTION WIDTH 12.8 % (11.6-16.5); WHITE BLOOD COUNT 7.9 X10^3/uL (3.6-10.0)
[2018-01-11 06:05] LABS: ALANINE AMINOTRANSFERASE 44 Units/L (12-78); ALBUMIN 3.1 g/dL (3.4-5.0); ALKALINE PHOSPHATASE 76 Units/L (46-116); ASPARTATE AMINO TRANSFERASE 26 Units/L (15-37); BLOOD UREA NITROGEN 8 mg/dL (7-18); CALCIUM 7.8 mg/dL (8.5-10.1); CARBON DIOXIDE 19.8 mmol/L (21-32); CHLORIDE 106 mmol/L (98-107); COR CA(FOR HYPOALB) 8.5 mg/dL (8.5-10.1); CREATININE 0.99 mg/dL (0.55-1.02); SODIUM 138 mmol/L (136-145); TOTAL PROTEIN 6.4 g/dL (6.4-8.2); eGFR NON BLACK RACES 58 (>60)
[2018-01-11] MEDS: SYNTHROID 75 mcg TAB PO SCH (06:11)
--- NOTE | 2018-01-11 07:20 | RAD ---
HISTORY: NG tube placement, small-bowel obstruction. Study: KUB Comparison: 01/10/2018. Findings: A radiopaque nasogastric tube is not identified. Mild gaseous distension of small bowel loops is pres ent mid epigastric region. There are surgical joyce present in the right lower abdominal quadrant. There is some air present within the remaining colon. Degenerative changes present involving the mid lumbar spine with scoliosis, disc space narrowing and multilevel spondylosis. IMPRESSION: No radiopaque nasogastric tube identified. Persistent but mild gaseous distention of multiple small bowel loops. A small amount of bowel gas is present within the colon. Findings may represent small bowel ileus versus partial small bowel obstruc tion. Reported By:
[2018-01-11] MEDS: LOVENOX INJ 40 MG SYR SC SCH (08:04)
[2018-01-11] MEDS: NEURONTIN CAP 300 MG PO SCH (10:44)
[2018-01-11] MEDS: VITAMIN C PO SCH ×2 (10:44→10:45)
[2018-01-11] MEDS: PROTONIX TAB 40 MG PO SCH (10:44)
[2018-01-11] MEDS: TAB-A-VITE PO SCH (10:44)
[2018-01-11] MEDS: MAXZIDE 37.5/25 MG PO SCH (10:44)
[2018-01-11] MEDS: MICRO K EXTEN CAP 10 MEQ PO SCH (10:44)
[2018-01-11] MEDS: ZESTRIL TAB 5 MG PO SCH (10:45)
[2018-01-11] MEDS: PHENERGAN INJ 25 MG IV PRN (11:59)
[2018-01-11 12:49] VITALS: BP 166/77
--- NOTE | 2018-02-23 00:01 | DR.CARTERD ---
- Discharge Summary for: Discharge Summary for Date of:: 01/11/18 - Admission Date Date of Admission: 01/06/18 - Admission Diagnoses Admission Diagnosis: (1) Small bowel obstruction - Discharge Date Discharge Date: 01/11/18 - Discharge Diagnoses Discharge Diagnosis: (1) Small bowel obstruction - Hospital Course Hospital Course: DAY ONE, IS A 73 YEAR OLD PATIENT OF OURS WHO PRESENTED TO THE EMERGENCY ROOM WITH COMPLAINTS OF CONSTIPATION, VOMITING, AND ABDOMINAL PAIN. SHE REPORTED THAT SHE IS NOT ABLE TO HOLD DOWN FOOD, FLUIDS, OR MEDICATIONS. ASSOCIATED SYMPTOMS INCLUDED WEAKNESS AND FATIGUE. SYMPTOMS STARTED TWO DAYS AGO. PATIENT HAS A HISTORY OF BOWEL OBSTRUCTION WITH A COLOSTOMY. ON ARRIVAL, VITALS WERE 98.0-79-18-95%-112/77. LABS WERE OBTAINED. ABNORMAL LAB VALUES INCLUDE THE FOLLOWING: WBC 16.5, HGB 16.7, HCT 49.0, SODIUMK 132, POTASSIUM 3.2, CHLORIDE 93, CREATININE 1.34, GLUCOSE 119, AST 52, ALT 105. URINALYSIS REVEALED: WBC 3-5, RBC 3-5, LEUKOCYTES 1+, BACTERIA TRACE, OCCULT BLOOD 1+. AN ABDOMEN/PELVIS CT WITH CONTRAST WAS OBTAINED AND REVEALED: Findings of high- grade small bowel obstruction likely secondary to adhesions in the low left abdomen anteriorly. Focal mesenteric edema suggests vascular congestion. Would recommend surgical consultation. WAS CONSULTED. HE RECOMMENED TO KEEP PATIENT NPO AND PLACE AN NG TUBE. NG TUBE WAS PLACED IN THE ER AND SHE WAS HOOKED UP TO INTERMITTENT SUCTION. SHE WAS STARTED ON IV PROTONIX AND PEPCID WELL LOVENOX 40MG SC DAILY FORT DVT PROPHYLAXIS. SHE WAS ALSO STARTED ON NORMAL SALINE WITH 20MEQ KCL AT 150ML/HR AND ZOSYN 3.375GM IV TID. WE FOLLOWED UP WITH AM LABS AND KUB AND CONTINUED TO MONITOR PATIENT. DAY THREE, SHE WAS ALERT AND ORIENTED, LYING IN BED ON MORNING ROUNDS. SHE CONTINUED WITH AN NG TUBE TO LOW INTERMITTENT SUCTION TODAY. THERE WAS MODERATE DRAINAGE IN TUBE. SHE CONTINUED WITH COMPLAINTS OF ABDOMINAL PAIN AND NAUSEA WITH NOT MUCH IMPROVEMENT SINCE YESTERDAY. ON EXAMINATION, HEART WAS REGULAR IN RATE AND RHYTHM. BILATERAL LUNGS WERE NOTED WITH DIMINISHED LUNG SOUNDS THROUGHOUT. ABDO MEN WAS DISTENDED AND NOTED WITH MODERATE TENDERNESS TO PALPATION. HYPOACTIVE BOWEL SOUNDS NOTED. THERE WAS NO DRAINAGE IN COLOSTOMY BAG AT THIS TIME. HER VITALS THIS MORNING WERE 98.4-63-18-94%-122/65. LABS WERE OBTAINED. ABNORMAL LAB VALUES INCLUDE THE FOLLOWING: CHLORIDE 108, CREATININE 1.28, CALCIUM 7.6, TOTAL PROTEIN 5.8, ALBUMIN 2.9. A KUB WAS OBTAINED THIS MORNING AND REVEALED: Increasing small bowel distention consistent with obstruction. WE CONTINUED WITH NG TUBE TO INTERMITTENT SUCTION, NPO, IV ANTIBIOTICS, AND PAIN MANAGEMENT. WE FOLLOWED UP WITH AM LABS AND CONTINUED TO MONITOR. DAY FOUR, SHE WAS ALERT AND ORIENTED, LYING IN BED ON MORNING ROUNDS. SHE CONTINUED WITH AN NG TUBE TO LOW INTERMITTENT SUCTION TODAY. THERE WAS MODERATE DRAINAGE IN TUBE. SHE CONTINUED WITH COMPLAINTS OF ABDOMINAL PAIN AND NAUSEA WITH NOT MUCH IMPROVEMENT SINCE YESTERDAY. ON EXAMINATION, HEART WAS REGULAR IN RATE AND RHYTHM. BILATERAL LUNGS WERE NOTED WITH DIMINISHED LUNG SOUNDS THROUGHOUT. ABDOMEN WAS DISTENDED AND NOTED WITH MODERATE TENDERNESS TO PALPATION. HYPOACTIVE BOWEL SOUNDS NOTED. THERE WAS NO DRAINAGE IN COLOSTOMY BAG AT THIS TIME. HER VITALS THIS MORNING ARE 98.4-63-18-94%-122/65. LABS WERE OBTAINED. ABNORMAL LAB VALUES INCLUDED THE FOLLOWING: CHLORIDE 108, CREATININE 1.28, CALCIUM 7.6, TOTAL PROTEIN 5.8, ALBUMIN 2.9. A KUB WAS OBTAINED THIS MORNING AND REVEALED: Increasing small bowel distention consistent with obstruction. TODAY, WE CONTINUED WITH NG TUBE TO INTERMITTENT SUCTION, NPO, IV ANTIBIOTICS, AND PAIN MANAGEMENT. WE FOLLOWED UP WITH AM LABS AND CONTINUED TO MONITOR. DAY SIX, PATIENT REPORTS FEELING BETTER DURING MORNING ROUNDS. NG TUBE WAS DISCONTINUED YESTERDAY. DR. GREER NOTED THAT PATIENT HAD A SMALL BM ON 01/09/18. VITAL SIGNS ARE STABLE. LAB VALUES ARE WITHIN NORMAL LIMITS. HYPOACTIVE BOWEL SOUNDS NOTED. WE PLANNED FOR DISCHARGE. INSTRUCTIONS FOR MEDICATIONS AND FOLLOW UP WERE DISCUSSED WITH PATIENT AND FAMILY, BOTH VOICED UNDERSTANDING. PATIENT DISCHARGED HOME IN STABLE CONDITION WITH FAMILY. - Discharge Medications Discharge Medications: Home Medication List ascorbic acid (vitamin C) [Vitamin C] 500 mg PO DAILY 01/06/18 [History] cefdinir 300 mg PO BID 01/06/18 [History] clonazepam 2 mg PO HS 01/06/18 [History] famotidine 20 mg PO HS 01/06/18 [History] gabapentin 300 mg PO BID 01/06/18 [History] hydrocodone-acetaminophen 10 - 325 mg PO TID 01/06/18 [History] levothyroxine 75 mcg PO DAILY 01/06/18 [History] lisinopril 2.5 mg PO DAILY PRN 01/06/18 [History] methylprednisolone See Rx Instructions .ROUTE .COMPLEX 01/06/18 [History] montelukast 10 mg PO BID 01/06/18 [History] rynpzvgl-vjf-VO-lycopen-lutein [Centrum Silver] 1 tab PO DAILY 01/06/18 [History] pantoprazole 40 mg PO DAILY 01/06/18 [History] potassium chloride [Klor-Con M10] 10 meq PO DAILY 01/06/18 [History] promethazine 25 mg PO PRN PRN 01/06/18 [History] ropinirole 0.5 mg PO HS 01/06/18 [History] tizanidine 4 mg PO HS 01/06/18 [History] triamterene-hydrochlorothiazid 1 tab PO DAILY 01/06/18 [History] amoxicillin-pot clavulanate [Augmentin] 1 tab PO BID #28 tab 01/11/18 [Rx] prednisone 5 mg PO BID #30 tab 01/11/18 [Rx] Prescriptions: amoxicillin-pot clavulanate [Augmentin] Josiah Krishna prednisone Josiah Krishna - Discharge Disposition Discharge Disposition: PATIENT TO FOLLOW UP IN OUR OFFICE IN ONE WEEK.
== END 2018-01-11 13:31 | disposition home or self-care (01) | DRG 390 ==
LOC: ER 16:29 → MED/SURG 16:29
PROVIDERS: ADMIT Internal Medicine; ATTEND Internal Medicine
DX: K56.690 Other partial intestinal obstruction; Z93.3 Colostomy status; I10 Essential (primary) hypertension; K66.0 Peritoneal adhesions (postprocedural) (postinfection); R11.10 Vomiting, unspecified; K59.09 Other constipation
CPT/HCPCS: 36415; 43753; 74000; 74018; 74176; 80053; 81001; 82150; 83690; 83735; 85025; 96365; 96367; 96374; 96375; 99283; A4222; S0028; G0378; J1650; J2270; J2405; J2543; J2550; J7030; J7050

== ENCOUNTER 2018-05-01 14:49 | Inpatient (IN) ==
[2018-05-01] MEDS ORDERED: PHARMACY CONSULT - DOSE _____ XX SCH (15:12)
[2018-05-01 15:42] LABS: BASOPHILS % (AUTO) 0.4 % (0.2-1.0); EOSINOPHILS % (AUTO) 0.4 % (0.9-2.9); HEMATOCRIT 33.6 % (36.0-47.0); HEMOGLOBIN 10.9 g/dL (12.0-16.0); LYMPHOCYTES # (AUTO) 1.7 X10^3/uL (1.3-2.9); LYMPHOCYTES % (AUTO) 18.6 % (21.0-51.0); MEAN CORPUSCULAR HEMOGLOBIN 27.9 pg (27.0-34.0); MEAN CORPUSCULAR HGB CONC 32.3 g/dL (33.0-35.0); MEAN CORPUSCULAR VOLUME 86.3 fL (80.0-100.0); MEAN PLATELET VOLUME 8.9 fL (7.4-11.0); MONOCYTES # (AUTO) 1.1 x10^3/uL (0.3-0.8); MONOCYTES % (AUTO) 12.2 % (0.0-13.0); NEUTROPHILS # (AUTO) 6.4 x10^3/uL (2.2-4.8); NEUTROPHILS % (AUTO) 68.4 % (42.0-75.0); PLATELET COUNT 198 X10^3/uL (150.0-450.0); RED BLOOD COUNT 3.89 X10^6/uL (3.5-5.4); RED CELL DISTRIBUTION WIDTH 14.3 % (11.6-16.5); WHITE BLOOD COUNT 9.4 X10^3/uL (3.6-10.0)
[2018-05-01] MEDS ORDERED: NS 1/2 1000 ML IV 1,000 ML IV ONE (15:42)
[2018-05-01] MEDS ORDERED: DRUG FILTER EXTENSION SET ONE (15:43)
[2018-05-01 16:02] LABS: CALCIUM 9.1 mg/dL (8.5-10.1); CARBON DIOXIDE 20.2 mmol/L (21-32); CREATININE 1.32 mg/dL (0.55-1.02)
--- NOTE | 2018-05-01 16:02 | RAD ---
HISTORY: Pneumonia cough shortness of breath low O2 Study: Two-view chest Comparison: One-view chest 01/11/2016 Technique: AP portable chest Findings: Left shoulder prosthesis is in good position. Soft tissues and bony thorax are normal. The heart size configuration airway and vascularity are normal. The lungs are clear IMPRESSION: 1. No acute cardiopulmonary abnormalities. 2. No change from the last film 01/11/2016. Reported By:
[2018-05-01] MEDS: ROBITUSSIN DM PO SCH ×2 (16:08→20:33)
[2018-05-01] MEDS: FORTAZ or TAZICEF VIAL INJ 1 G in NS 100 ML IV + SPIKE MINIBAG* 100 ML IV SCH ×2 (16:08→23:05)
[2018-05-01] MEDS: NORCO 10/325 TAB PO PRN ×2 (16:09→20:33)
[2018-05-01] MEDS: NS 1/2 1000 ML IV 1,000 ML IV SCH (16:11)
[2018-05-01 16:15] LABS: ABG BASE EXCESS -6.1 mmol/L (-2.0-2.0); ABG HCO3 18.9 mmol/L (22-26)
[2018-05-01] MEDS: DUONEB 0.5 MG/3 MG NEB SCH ×2 (17:00→20:40)
[2018-05-01] MEDS ORDERED: ACTIVASE CATHFLO IJ ONE (17:00)
[2018-05-01 17:03] LABS: CKMB % 1.2 % (<4); CREATINE KINASE MB 0.8 ng/mL (0-4.0)
[2018-05-01 17:47] LABS: ALBUMIN 2.9 g/dL (3.4-5.0)
[2018-05-01 17:58] LABS: BILIRUBIN,URINE NEGATIVE (NEGATIVE); BLOOD/HEMOGLOBIN,URINE 1+ (NEGATIVE); GLUCOSE, URINE NEGATIVE (NEGATIVE); KETONES,URINE NEGATIVE (NEGATIVE); LEUKOCYTE ESTERASE ,URINE 1+ (NEGATIVE); NITRITES,URINE NEGATIVE (NEGATIVE); PROTEIN,URINE 2+ (NEGATIVE); UROBILINOGEN,URINE NORMAL (NORMAL)
[2018-05-01 17:59] LABS: APPEARANCE,URINE CLOUDY (CLEAR); COLOR,URINE YELLOW (YELLOW)
[2018-05-01 18:06] LABS: BACTERIA,URINE TRACE /HPF (NEGATIVE); COARSE GRANULAR CASTS,URINE FEW /HPF (NEGATIVE); MUCUS,URINE FEW /HPF (NEGATIVE); SQUAMOUS EPITHELIAL CELL,UR FEW /HPF (NEGATIVE)
[2018-05-01] MEDS ORDERED: PATIENT'S HOME MEDICATION IV SCH (20:00)
[2018-05-01] MEDS ORDERED: PATIENT'S HOME MEDICATION SUBCUT SCH ×2 (20:00)
[2018-05-01] MEDS: TUSSIONEX PENNKINETIC SUSP PO PRN (20:34)
[2018-05-01] MEDS: VIBRAMYCIN 100 MG in D5W 250 ML IV 250 ML IV SCH (20:34)
[2018-05-01] MEDS ORDERED: KLONOPIN TAB 1 MG PO PRN (22:14)
[2018-05-01] MEDS: ULTRAM PO PRN (22:36)
[2018-05-01] MEDS: TESSALON PERLES PO PRN (22:36)
[2018-05-02 00:23] LABS: CREATINE KINASE 108 Units/L (26-192); CREATINE KINASE MB 1.1 ng/mL (0-4.0); TROPONIN I < 0.02 ng/mL (0-1.5)
[2018-05-02] MEDS: NS 1/2 1000 ML IV 1,000 ML IV SCH ×2 (05:50→20:27)
[2018-05-02] MEDS: FORTAZ or TAZICEF VIAL INJ 1 G in NS 100 ML IV + SPIKE MINIBAG* 100 ML IV SCH ×3 (05:50→21:41)
[2018-05-02 06:19] LABS: BASOPHILS % (AUTO) 0.3 % (0.2-1.0); EOSINOPHILS % (AUTO) 0.1 % (0.9-2.9); HEMATOCRIT 30.3 % (36.0-47.0); HEMOGLOBIN 9.7 g/dL (12.0-16.0); LYMPHOCYTES # (AUTO) 1.5 X10^3/uL (1.3-2.9); MEAN CORPUSCULAR HEMOGLOBIN 27.7 pg (27.0-34.0); MEAN CORPUSCULAR HGB CONC 32.1 g/dL (33.0-35.0); MEAN CORPUSCULAR VOLUME 86.2 fL (80.0-100.0); MONOCYTES # (AUTO) 1.2 x10^3/uL (0.3-0.8); MONOCYTES % (AUTO) 11.3 % (0.0-13.0); NEUTROPHILS # (AUTO) 8.2 x10^3/uL (2.2-4.8); NEUTROPHILS % (AUTO) 74.3 % (42.0-75.0); PLATELET COUNT 168 X10^3/uL (150.0-450.0); RED BLOOD COUNT 3.52 X10^6/uL (3.5-5.4); RED CELL DISTRIBUTION WIDTH 14.1 % (11.6-16.5)
[2018-05-02 07:04] LABS: ALANINE AMINOTRANSFERASE 40 Units/L (12-78); ALBUMIN 2.3 g/dL (3.4-5.0); ALKALINE PHOSPHATASE 280 Units/L (46-116); ASPARTATE AMINO TRANSFERASE 27 Units/L (15-37); BLOOD UREA NITROGEN 34 mg/dL (7-18); CHLORIDE 105 mmol/L (98-107); COR CA(FOR HYPOALB) 10.4 mg/dL (8.5-10.1); COR NA(FOR HYPERGLY) 138 mmol/L (136-145); CREATININE 1.12 mg/dL (0.55-1.02); SODIUM 136 mmol/L (136-145); TOTAL PROTEIN 6.7 g/dL (6.4-8.2); eGFR NON BLACK RACES 51 (>60)
[2018-05-02 07:46] LABS: CKMB % 1.2 % (<4); CREATINE KINASE 85 Units/L (26-192); CREATINE KINASE MB < 1.0 ng/mL (0-4.0); TROPONIN I < 0.02 ng/mL (0-1.5)
[2018-05-02] MEDS: NORCO 10/325 TAB PO PRN ×3 (07:51→17:07)
[2018-05-02] MEDS: TUSSIONEX PENNKINETIC SUSP PO PRN ×2 (07:52→20:27)
[2018-05-02] MEDS: DUONEB 0.5 MG/3 MG NEB SCH ×4 (09:10→21:13)
[2018-05-02] MEDS: ROBITUSSIN DM PO SCH ×4 (09:21→20:27)
[2018-05-02] MEDS: VIBRAMYCIN 100 MG in D5W 250 ML IV 250 ML IV SCH ×2 (09:21→20:26)
[2018-05-02] MEDS ORDERED: PATIENT'S HOME MEDICATION IV SCH ×2 (10:00→21:00)
[2018-05-02] MEDS: TORADOL 15 MG VIAL IVP SCH ×3 (10:52→21:39)
[2018-05-02] MEDS ORDERED: LEVAQUIN PREMIX IV 750 MG 750 MG/150 ML BAG IV SCH (14:59)
[2018-05-02] MEDS ORDERED: NS 1/2 1000 ML IV 1,000 ML IV ONE (20:24)
[2018-05-02] MEDS: PATIENT'S HOME MEDICATION SUBCUT SCH (20:29)
[2018-05-02] MEDS: PATIENT'S HOME MEDICATION IV SCH (20:29)
[2018-05-02] MEDS: ULTRAM PO PRN (20:30)
[2018-05-03] MEDS: NORCO 10/325 TAB PO PRN ×3 (02:30→19:56)
[2018-05-03] MEDS: TESSALON PERLES PO PRN (02:31)
[2018-05-03 03:53] VITALS: BMI 25.7
[2018-05-03] MEDS: FORTAZ or TAZICEF VIAL INJ 1 G in NS 100 ML IV + SPIKE MINIBAG* 100 ML IV SCH ×3 (05:19→21:05)
[2018-05-03] MEDS: TORADOL 15 MG VIAL IVP SCH ×3 (05:19→21:05)
[2018-05-03 06:14] LABS: BASOPHILS % (AUTO) 0.4 % (0.2-1.0); EOSINOPHILS # (AUTO) 0.1 x10^3/uL (0.0-0.2); EOSINOPHILS % (AUTO) 0.9 % (0.9-2.9); HEMATOCRIT 34.1 % (36.0-47.0); HEMOGLOBIN 10.8 g/dL (12.0-16.0); LYMPHOCYTES # (AUTO) 1.5 X10^3/uL (1.3-2.9); LYMPHOCYTES % (AUTO) 12.2 % (21.0-51.0); MEAN CORPUSCULAR HEMOGLOBIN 27.7 pg (27.0-34.0); MEAN CORPUSCULAR HGB CONC 31.8 g/dL (33.0-35.0); MEAN CORPUSCULAR VOLUME 87.1 fL (80.0-100.0); MEAN PLATELET VOLUME 9.3 fL (7.4-11.0); MONOCYTES # (AUTO) 1.2 x10^3/uL (0.3-0.8); MONOCYTES % (AUTO) 10.4 % (0.0-13.0); NEUTROPHILS # (AUTO) 9.2 x10^3/uL (2.2-4.8); NEUTROPHILS % (AUTO) 76.1 % (42.0-75.0); PLATELET COUNT 224 X10^3/uL (150.0-450.0); RED BLOOD COUNT 3.91 X10^6/uL (3.5-5.4); RED CELL DISTRIBUTION WIDTH 14.4 % (11.6-16.5)
[2018-05-03 06:32] LABS: ALANINE AMINOTRANSFERASE 38 Units/L (12-78); ALBUMIN 2.4 g/dL (3.4-5.0); ALKALINE PHOSPHATASE 299 Units/L (46-116); ASPARTATE AMINO TRANSFERASE 30 Units/L (15-37); BLOOD UREA NITROGEN 27 mg/dL (7-18); CALCIUM 9.3 mg/dL (8.5-10.1); CARBON DIOXIDE 24.2 mmol/L (21-32); CHLORIDE 105 mmol/L (98-107); COR CA(FOR HYPOALB) 10.6 mg/dL (8.5-10.1); CREATININE 1.09 mg/dL (0.55-1.02); SODIUM 139 mmol/L (136-145); TOTAL PROTEIN 7.3 g/dL (6.4-8.2); eGFR NON BLACK RACES 52 (>60)
[2018-05-03] MEDS: DUONEB 0.5 MG/3 MG NEB SCH ×4 (08:29→20:47)
[2018-05-03] MEDS: ROBITUSSIN DM PO SCH ×4 (08:59→21:05)
[2018-05-03] MEDS: VIBRAMYCIN 100 MG in D5W 250 ML IV 250 ML IV SCH ×2 (09:00→21:05)
[2018-05-03] MEDS: PATIENT'S HOME MEDICATION SUBCUT SCH ×2 (09:20→22:00)
[2018-05-03] MEDS: NS 1/2 1000 ML IV 1,000 ML IV SCH (09:21)
[2018-05-03] MEDS: TUSSIONEX PENNKINETIC SUSP PO PRN (11:03)
[2018-05-03 11:09] LABS: CREATINE KINASE 49 Units/L (26-192); CREATINE KINASE MB < 1.0 ng/mL (0-4.0); TROPONIN I < 0.02 ng/mL (0-1.5)
--- NOTE | 2018-05-03 14:06 | RAD ---
HISTORY: Pneumonia. Cough. Low O2. Study: AP portable chest Comparison: 05/01/2018 Findings: Slight interval increase in the left lower lobe atelectatic change/infiltrate is noted. Mild chronic interstitial scarring is noted. Mild cardiomegaly is present. A left shoulder prosthesis is present. No acute bony abnormalities are identified. A left-sided PICC line is present. The tip appears to be in the left brachiocephalic vein just before to the superior vena cava. IMPRESSION: 1. Slight interval increase in the left lower lobe atelectatic change/infiltrate. 2. Mild cardiomegaly without evidence of failure. Reported By:
[2018-05-03 15:05] LABS: CREATINE KINASE 49 Units/L (26-192); CREATINE KINASE MB < 1.0 ng/mL (0-4.0); TROPONIN I < 0.02 ng/mL (0-1.5)
[2018-05-03 19:31] LABS: CKMB % 2.4 % (<4); CREATINE KINASE 45 Units/L (26-192); CREATINE KINASE MB 1.1 ng/mL (0-4.0); TROPONIN I < 0.02 ng/mL (0-1.5)
--- NOTE | 2018-05-03 20:21 | PCM.PROG ---
Progress Note - Progress Note for Day of Date of Exam: 05/02/18 - Subjective Subjective: WAS ADMITTED FOR BRONCHOPNEUMONIA. TODAY, SHE IS ALERT AND ORIENTED, LYING IN BED ON MORNING ROUNDS. SHE CONTINUES WITH A NON- PRODUCTIVE COUGH AND BACK PAIN. SHE DESCRIBES UPPER BACK PAIN THAT IS WORSE WHEN SHE COUGHS. ON EXAMINATION, HEAR IS REGULAR IN RATE AND RHYTHM. BILATERAL LUNGS ARE NOTED WITH SCATTERED WHEEZING. ABDOMEN IS ROUND, SOFT, AND NOTED WITH DIFFUSE TENDERNESS. SHE IS NOTED WITH A COLOSTOMY TO THE RIGHT SIDE ABDOMEN AND FISTULAS TO MIDLINE AND LEFT ABDOMEN. SHE HAS A PICC LINE NOTED TO THE LEFT UPPER ARM. HER VITALS THIS MORNING ARE 97.9-88-20-92%NC-139/65. LABS WERE OBTAINED. ABNORMAL LAB VALUES INCLUDE THE FOLLOWING: WBC 11.0, HGB 9.7, HCT 30.3, CARBON DIOXIDE 20.0, BUN 34, CREATININE 1.12, GLUCOSE 186, ALK PHOS 280, ALBUMIN 2.3. BLOOD AND SPUTUM CULTURE PENDING. CARDIAC ENZYMES WITHIN NORMAL LIMITS. TODAY, WE WILL START TORADOL 15MG IV Q8H NATASHA PLEURISY. OTHERWISE, WE WILL CONTINUE WITH IV ANTIBIOTICS, RESPIRATORY TREATMENTS, AND CURRENT PLAN OF CARE. OTHERWISE, WE PLAN TO FOLLOW UP WITH AM LABS AND CONTINUE TO MONITOR. - Past Medical Family Social History Past Med/Fam/Surg Hx: No changes since H&P Allergies: Allergies ciprofloxacin [From Cipro] Allergy (Verified 12/17/16 11:31) metronidazole [From Flagyl] Allergy (Verified 12/17/16 11:31) - Review of Systems ROS: No change since H&P - Vital Signs and I&O's Vital Signs: Temperature 98.2 F Pulse Rate [Right Brachial] 78 Pulse Rate 81 Respiratory Rate 18 Blood Pressure [Left Arm] 166/77 Blood Pressure [Right Arm] 137/60 Blood Pressure 122/68 O2 Sat by Pulse Oximetry 100 Intake and Output: Intake & Output 05/01/18 05/02/18 05/03/18 05/04/18 11:59 11:59 11:59 11:59 Intake Total 960 / 960 1240 / 1240 360 / 360 Output Total 300 / 300 Balance 660 / 660 1240 / 1240 360 / 360 - Physical Exam Oriented: Normal Eyes: Normal Ear: Normal Nose: Normal Throat: Normal Respiratory: Generalized, Wheezes Cardiovascular: Normal. negative: S3, S4, Murmur : Normal Auscultation: Bowel Sounds: Normal Palpation: Normal Tenderness: Diffuse, Mild. negative: Rebound, Guarding, Rigidity Skin: Normal Musculoskeletal: Back:Thoracic, Tender Psychiatric: Normal Mood Description: Calm Affect: Normal Speech Pattern: Clear, Appropriate - Laboratory and Diagnostics Result Diagrams: 05/03/18 05:10 05/03/18 05:10 Labs: 05/01/18 15:26 Blood Blood Culture - Preliminary 05/01/18 15:31 Blood Blood Culture - Preliminary 05/01/18 15:50 Sputum - Expectorated Sputum Sputum Culture - Final 05/01/18 15:50 Sputum - Expectorated Sputum - Final Laboratory WBC 12.0 X10^3/uL (3.6-10.0) H 05/03/18 05:10 RBC 3.91 X10^6/uL (3.5-5.4) 05/03/18 05:10 Hgb 10.8 g/dL (12.0-16.0) L 05/03/18 05:10 Hct 34.1 % (36.0-47.0) L 05/03/18 05:10 MCV 87.1 fL (80.0-100.0) 05/03/18 05:10 MCH 27.7 pg (27.0-34.0) 05/03/18 05:10 MCHC 31.8 g/dL (33.0-35.0) L 05/03/18 05:10 RDW 14.4 % (11.6-16.5) 05/03/18 05:10 Plt Count 224 X10^3/uL (150.0-450.0) 05/03/18 05:10 MPV 9.3 fL (7.4-11.0) 05/03/18 05:10 Neut % (Auto) 76.1 % (42.0-75.0) H 05/03/18 05:10 Lymph % (Auto) 12.2 % (21.0-51.0) L 05/03/18 05:10 [place] % (Auto) 10.4 % (0.0-13.0) 05/03/18 05:10 Eos % (Auto) 0.9 % (0.9-2.9) 05/03/18 05:10 Baso % (Auto) 0.4 % (0.2-1.0) 05/03/18 05:10 Neut # (Auto) 9.2 x10^3/uL (2.2-4.8) H 05/03/18 05:10 Lymph # (Auto) 1.5 X10^3/uL (1.3-2.9) 05/03/18 05:10 [place] # (Auto) 1.2 x10^3/uL (0.3-0.8) H 05/03/18 05:10 Eos # (Auto) 0.1 x10^3/uL (0.0-0.2) 05/03/18 05:10 Baso # (Auto) 0.0 X10^3/uL (0.0-0.1) 05/03/18 05:10 Absolute Nucleated RBC 0.1 /100WBC 05/03/18 05:10 Sample Site R br 05/01/18 16:11 ABG pH 7.340 (7.35-7.45) L 05/01/18 16:11 ABG pCO2 35.0 mmHg (35.0-45.0) 05/01/18 16:11 ABG pO2 79.0 mmHg (80.0-100.0) L 05/01/18 16:11 ABG HCO3 18.9 mmol/L (22-26) L 05/01/18 16:11 ABG O2 Saturation 95.0 % (90-100) 05/01/18 16:11 ABG Base Excess -6.1 mmol/L (-2.0-2.0) L 05/01/18 16:11 Silviano Test Na 05/01/18 16:11 A-a Gradient 27.0 mmHg 05/01/18 16:11 FiO2 21.0 05/01/18 16:11 Blood Gas Comments Shanon well gmb 05/01/18 16:11 Sodium 139 mmol/L (136-145) 05/03/18 05:10 Corrected Sodium TNP 05/03/18 05:10 Potassium 4.8 mmol/L (3.5-5.1) 05/03/18 05:10 Chloride 105 mmol/L (98-107) 05/03/18 05:10 Carbon Dioxide 24.2 mmol/L (21-32) 05/03/18 05:10 BUN 27 mg/dL (7-18) H 05/03/18 05:10 Creatinine 1.09 mg/dL (0.55-1.02) H 05/03/18 05:10 Est GFR (MDRD) Af Amer > 60 (>60) 05/03/18 05:10 Est GFR (MDRD) Non-Af 52 (>60) L 05/03/18 05:10 Glucose 102 mg/dL (65-99) H 05/03/18 05:10 Calcium 9.3 mg/dL (8.5-10.1) 05/03/18 05:10 Corrected Calcium 10.6 mg/dL (8.5-10.1) H 05/03/18 05:10 Magnesium 2.0 mg/dL (1.7-2.9) 05/02/18 05:58 Total Bilirubin 0.40 mg/dL (0.2-1.0) 05/03/18 05:10 AST 30 Units/L (15-37) 05/03/18 05:10 ALT 38 Units/L (12-78) 05/03/18 05:10 Alkaline Phosphatase 299 Units/L (46-116) H 05/03/18 05:10 Creatine Kinase 45 Units/L (26-192) 05/03/18 18:45 CK-MB (CK-2) 1.1 ng/mL (0-4.0) 05/03/18 18:45 CK/CKMB % Calc 2.4 % (<4) 05/03/18 18:45 Troponin I < 0.02 ng/mL (0-1.5) 05/03/18 18:45 Total Protein 7.3 g/dL (6.4-8.2) 05/03/18 05:10 Albumin 2.4 g/dL (3.4-5.0) L 05/03/18 05:10 Globulin 4.9 g/dL (2.5-4.5) H 05/03/18 05:10 Albumin/Globulin Ratio 0.5 Ratio (1.1-2.1) L 05/03/18 05:10 Specimen Type Clean catch urine 05/01/18 17:30 Urine Color Yellow (YELLOW) 05/01/18 17:30 Urine Appearance Cloudy (CLEAR) 05/01/18 17:30 Urine pH 5.0 (5.0 - 8.0) 05/01/18 17:30 Ur Specific [place]son 1.015 (1.000-1.030) 05/01/18 17:30 Urine Protein 2+ (NEGATIVE) 05/01/18 17:30 Urine Glucose (UA) Negative (NEGATIVE) 05/01/18 17:30 Urine Ketones Negative (NEGATIVE) 05/01/18 17:30 Urine Occult Blood 1+ (NEGATIVE) 05/01/18 17:30 Urine Nitrite Negative (NEGATIVE) 05/01/18 17:30 Urine Bilirubin Negative (NEGATIVE) 05/01/18 17:30 Urine Urobilinogen Normal (NORMAL) 05/01/18 17:30 Ur Leukocyte Esterase 1+ (NEGATIVE) 05/01/18 17:30 Urine RBC 3-5 /HPF (NONE SEEN) 05/01/18 17:30 Urine WBC 3-5 /HPF (NONE SEEN) 05/01/18 17:30 Ur Squamous Epith Cells Few /HPF (NEGATIVE) 05/01/18 17:30 Urine Bacteria Trace /HPF (NEGATIVE) 05/01/18 17:30 Coarse Granular Casts Few /HPF (NEGATIVE) 05/01/18 17:30 Urine Mucus Few /HPF (NEGATIVE) 05/01/18 17:30 Ur Culture Indicated? No/not indicated 05/01/18 17:30 Influenza Type A (PCR) Negative (NEGATIVE) 05/01/18 20:30 Influenza Type B (PCR) Negative (NEGATIVE) 05/01/18 20:30 - Plan (1) Bronchopneumonia Status: Acute Plan: IV ANTIBIOTICS, RESPIRATORY TREAMTMENTS, SUPPLEMENTAL OXYGEN, CONTINUE TO MONITOR (2) Pleurisy Status: Acute Plan: TORADOL 15MG IV Q8H NATASHA, CONTINUE TO MONITOR
--- NOTE | 2018-05-03 20:23 | DR.UPDATE ---
H&P Update History and Physical Update: WAS SEEN IN THE OFFICE TODAY FOR A PERSISTENT COUGH, SHORTNESS OF BREATH, ABDOMINAL PAIN, AND UPPER BACK PAIN. SHE WAS ADMITTED TO THE HOSPTIAL FOR FURTHER EVALUATION AND TREATMENT OF BRONCHOPNEUMONIA. A H&P WAS COMPLETED PRIOR TO ADMISSION. PATIENT HAS BEEN SEEN AND EXAMINED WITH NO CHANGES NOTED TO H&P. Changes noted: NO Yes with the following:
[2018-05-03] MEDS ORDERED: DRUG FILTER EXTENSION SET ONE (21:57)
[2018-05-03] MEDS: PATIENT'S HOME MEDICATION IV SCH (22:00)
[2018-05-04] MEDS: TUSSIONEX PENNKINETIC SUSP PO PRN ×2 (01:50→17:00)
[2018-05-04] MEDS: NORCO 10/325 TAB PO PRN ×3 (01:56→18:38)
[2018-05-04] MEDS ORDERED: DRUG FILTER EXTENSION SET ONE (02:06)
[2018-05-04] MEDS ORDERED: ACTIVASE CATHFLO IJ ONE (02:20)
[2018-05-04] MEDS: FORTAZ or TAZICEF VIAL INJ 1 G in NS 100 ML IV + SPIKE MINIBAG* 100 ML IV SCH ×3 (05:48→22:40)
[2018-05-04] MEDS: TORADOL 15 MG VIAL IVP SCH ×2 (05:48→13:22)
[2018-05-04] MEDS: NS 1/2 1000 ML IV 1,000 ML IV SCH ×2 (05:52→13:23)
--- NOTE | 2018-05-04 06:32 | RAD ---
HISTORY: Cough, shortness of breath, hypoxia Study: Chest AP portable Comparison: May 03, 2018 Findings: Continued mild cardiomegaly is identified. No congestive heart failure is noted. The niles are normal. The right lung and left upper lung chavez are clear. Mild atelectatic changes present in the left lower lobe not significantly different from the prior examination. A minimal left pleural effusion is likely present. The bony thorax is unremarkable with the exception of left shoulder arthroplasty. IMPRESSION: Continued mild cardiomegaly without congestive heart failure Continued atelectatic change in the left lung base, stable Suspect minimal left pleural effusion Reported By:
[2018-05-04 06:37] LABS: BASOPHILS % (AUTO) 0.4 % (0.2-1.0); EOSINOPHILS # (AUTO) 0.1 x10^3/uL (0.0-0.2); EOSINOPHILS % (AUTO) 1.5 % (0.9-2.9); HEMATOCRIT 28.8 % (36.0-47.0); HEMOGLOBIN 9.3 g/dL (12.0-16.0); LYMPHOCYTES # (AUTO) 1.3 X10^3/uL (1.3-2.9); LYMPHOCYTES % (AUTO) 15.7 % (21.0-51.0); MEAN CORPUSCULAR HEMOGLOBIN 27.7 pg (27.0-34.0); MEAN CORPUSCULAR HGB CONC 32.2 g/dL (33.0-35.0); MEAN PLATELET VOLUME 8.7 fL (7.4-11.0); MONOCYTES # (AUTO) 0.8 x10^3/uL (0.3-0.8); MONOCYTES % (AUTO) 9.9 % (0.0-13.0); NEUTROPHILS # (AUTO) 6.1 x10^3/uL (2.2-4.8); NEUTROPHILS % (AUTO) 72.5 % (42.0-75.0); PLATELET COUNT 225 X10^3/uL (150.0-450.0); RED BLOOD COUNT 3.35 X10^6/uL (3.5-5.4); RED CELL DISTRIBUTION WIDTH 14.4 % (11.6-16.5); WHITE BLOOD COUNT 8.4 X10^3/uL (3.6-10.0)
[2018-05-04 07:20] LABS: ALANINE AMINOTRANSFERASE 40 Units/L (12-78); ALBUMIN 2.1 g/dL (3.4-5.0); ALKALINE PHOSPHATASE 341 Units/L (46-116); ASPARTATE AMINO TRANSFERASE 32 Units/L (15-37); BLOOD UREA NITROGEN 20 mg/dL (7-18); CALCIUM 9.4 mg/dL (8.5-10.1); CHLORIDE 103 mmol/L (98-107); COR CA(FOR HYPOALB) 10.9 mg/dL (8.5-10.1); COR NA(FOR HYPERGLY) 136 mmol/L (136-145); CREATININE 1.05 mg/dL (0.55-1.02); SODIUM 135 mmol/L (136-145); TOTAL PROTEIN 6.9 g/dL (6.4-8.2); eGFR NON BLACK RACES 55 (>60)
[2018-05-04] MEDS: VIBRAMYCIN 100 MG in D5W 250 ML IV 250 ML IV SCH ×2 (08:46→20:48)
[2018-05-04] MEDS: ROBITUSSIN DM PO SCH ×4 (08:47→20:48)
[2018-05-04] MEDS: DUONEB 0.5 MG/3 MG NEB SCH ×4 (09:21→20:01)
[2018-05-04] MEDS: PATIENT'S HOME MEDICATION SUBCUT SCH ×2 (10:10→20:48)
[2018-05-04] MEDS ORDERED: NS 1/2 1000 ML IV 1,000 ML IV ONE (12:07)
[2018-05-04] MEDS: TORADOL 30 MG VIAL IVP SCH (20:48)
[2018-05-04] MEDS: PATIENT'S HOME MEDICATION IV SCH (23:49)
[2018-05-05] MEDS: TORADOL 30 MG VIAL IVP SCH ×4 (03:45→20:03)
[2018-05-05] MEDS: NS 1/2 1000 ML IV 1,000 ML IV SCH ×2 (04:06→19:11)
[2018-05-05 05:17] LABS: BASOPHILS % (AUTO) 0.2 % (0.2-1.0); EOSINOPHILS # (AUTO) 0.1 x10^3/uL (0.0-0.2); EOSINOPHILS % (AUTO) 0.9 % (0.9-2.9); HEMOGLOBIN 8.4 g/dL (12.0-16.0); LYMPHOCYTES # (AUTO) 1.5 X10^3/uL (1.3-2.9); MEAN CORPUSCULAR HEMOGLOBIN 27.8 pg (27.0-34.0); MEAN CORPUSCULAR HGB CONC 32.5 g/dL (33.0-35.0); MEAN CORPUSCULAR VOLUME 85.7 fL (80.0-100.0); MEAN PLATELET VOLUME 8.4 fL (7.4-11.0); MONOCYTES # (AUTO) 0.9 x10^3/uL (0.3-0.8); MONOCYTES % (AUTO) 10.1 % (0.0-13.0); NEUTROPHILS # (AUTO) 6.4 x10^3/uL (2.2-4.8); NEUTROPHILS % (AUTO) 71.8 % (42.0-75.0); PLATELET COUNT 257 X10^3/uL (150.0-450.0); RED BLOOD COUNT 3.03 X10^6/uL (3.5-5.4); RED CELL DISTRIBUTION WIDTH 14.3 % (11.6-16.5); WHITE BLOOD COUNT 8.9 X10^3/uL (3.6-10.0)
[2018-05-05] MEDS: FORTAZ or TAZICEF VIAL INJ 1 G in NS 100 ML IV + SPIKE MINIBAG* 100 ML IV SCH ×3 (05:38→22:10)
--- NOTE | 2018-05-05 06:21 | RAD ---
HISTORY: Cough, shortness of breath Study: Chest AP portable Comparison: 05/04/2018 Findings: The patient is rotated to the left. The heart remains mildly enlarged. No congestive heart failure is noted. No acute alveolar infiltrates are identified. Subsegmental atelectasis remains present in the left lower lobe. No definite pleural effusion on today's examination. The bony thorax is unremarkable with the exception of a left shoulder arthroplasty. IMPRESSION: Continued mild cardiomegaly without congestive heart failure Subsegmental atelectasis left Reported By:
[2018-05-05] MEDS: VIBRAMYCIN 100 MG in D5W 250 ML IV 250 ML IV SCH ×2 (09:05→20:26)
[2018-05-05] MEDS: ROBITUSSIN DM PO SCH ×4 (09:05→20:26)
[2018-05-05] MEDS: PATIENT'S HOME MEDICATION SUBCUT SCH ×2 (09:07→20:26)
[2018-05-05] MEDS: DUONEB 0.5 MG/3 MG NEB SCH ×4 (09:30→20:05)
[2018-05-05 10:40] LABS: IRON 9 ug/dL (50-175)
[2018-05-05] MEDS ORDERED: NS 1/2 1000 ML IV 1,000 ML IV ONE (17:46)
[2018-05-05] MEDS ORDERED: DRUG FILTER EXTENSION SET ONE (20:41)
[2018-05-05] MEDS ORDERED: LIPOSYN III 20% 250ML 250 ML IV NR (21:00)
[2018-05-05] MEDS: PATIENT'S HOME MEDICATION IV SCH (22:00)
[2018-05-06] MEDS: TORADOL 30 MG VIAL IVP SCH ×4 (03:45→22:06)
[2018-05-06 05:20] LABS: BASOPHILS % (AUTO) 0.2 % (0.2-1.0); EOSINOPHILS # (AUTO) 0.1 x10^3/uL (0.0-0.2); EOSINOPHILS % (AUTO) 0.6 % (0.9-2.9); HEMOGLOBIN 8.8 g/dL (12.0-16.0); LYMPHOCYTES # (AUTO) 1.6 X10^3/uL (1.3-2.9); LYMPHOCYTES % (AUTO) 14.9 % (21.0-51.0); MEAN CORPUSCULAR HGB CONC 32.6 g/dL (33.0-35.0); MEAN CORPUSCULAR VOLUME 85.7 fL (80.0-100.0); MEAN PLATELET VOLUME 8.2 fL (7.4-11.0); MONOCYTES # (AUTO) 0.8 x10^3/uL (0.3-0.8); MONOCYTES % (AUTO) 7.2 % (0.0-13.0); NEUTROPHILS # (AUTO) 8.2 x10^3/uL (2.2-4.8); NEUTROPHILS % (AUTO) 77.1 % (42.0-75.0); PLATELET COUNT 332 X10^3/uL (150.0-450.0); RED BLOOD COUNT 3.15 X10^6/uL (3.5-5.4); RED CELL DISTRIBUTION WIDTH 14.3 % (11.6-16.5); WHITE BLOOD COUNT 10.7 X10^3/uL (3.6-10.0)
[2018-05-06 05:35] LABS: ALANINE AMINOTRANSFERASE 40 Units/L (12-78); ALBUMIN 1.9 g/dL (3.4-5.0); ALKALINE PHOSPHATASE 384 Units/L (46-116); ASPARTATE AMINO TRANSFERASE 29 Units/L (15-37); BLOOD UREA NITROGEN 22 mg/dL (7-18); CALCIUM 9.2 mg/dL (8.5-10.1); CARBON DIOXIDE 21.4 mmol/L (21-32); CHLORIDE 101 mmol/L (98-107); COR CA(FOR HYPOALB) 10.9 mg/dL (8.5-10.1); COR NA(FOR HYPERGLY) 134 mmol/L (136-145); SODIUM 133 mmol/L (136-145); TOTAL PROTEIN 6.7 g/dL (6.4-8.2); eGFR NON BLACK RACES 52 (>60)
[2018-05-06] MEDS: FORTAZ or TAZICEF VIAL INJ 1 G in NS 100 ML IV + SPIKE MINIBAG* 100 ML IV SCH ×3 (06:04→22:06)
--- NOTE | 2018-05-06 06:45 | RAD ---
Examination: Portable AP chest History: SOB Comparison 05/05/2018 Findings: The heart is not significantly enlarged. There is persistent atelectasis in the left lower lobe. Left-sided PICC terminates in the central mediastinum. There is no large pleural effusion or extra pulmonary air identified. Impression: Persistent areas of left lower lobe atelectasis. No change in appearance of the chest since 05/05/2018. Reported By:
[2018-05-06] MEDS: NS 1/2 1000 ML IV 1,000 ML IV SCH (08:20)
[2018-05-06] MEDS: DUONEB 0.5 MG/3 MG NEB SCH ×4 (08:25→20:00)
[2018-05-06] MEDS: ROBITUSSIN DM PO SCH ×4 (08:36→22:06)
[2018-05-06] MEDS: VIBRAMYCIN 100 MG in D5W 250 ML IV 250 ML IV SCH ×2 (08:36→21:00)
[2018-05-06] MEDS: PATIENT'S HOME MEDICATION SUBCUT SCH ×2 (09:29→22:05)
[2018-05-06] MEDS: TESSALON PERLES PO PRN ×2 (11:23→21:00)
[2018-05-06] MEDS ORDERED: PROCRIT or EPOGEN SC ONE (12:51)
[2018-05-06] MEDS ORDERED: PROCRIT or EPOGEN ONE (13:30)
[2018-05-06] MEDS: NS 1000 ML 1,000 ML IV SCH ×2 (13:31→22:05)
[2018-05-06] MEDS: TUSSIONEX PENNKINETIC SUSP PO PRN (13:36)
[2018-05-06] MEDS ORDERED: LIPOSYN III 20% 250ML 250 ML IV SCH (21:00)
[2018-05-07] MEDS: TUSSIONEX PENNKINETIC SUSP PO PRN (01:45)
[2018-05-07] MEDS: TORADOL 30 MG VIAL IVP SCH ×4 (03:50→21:00)
[2018-05-07] MEDS: NS 1000 ML 1,000 ML IV SCH ×4 (05:39→23:49)
[2018-05-07] MEDS: FORTAZ or TAZICEF VIAL INJ 1 G in NS 100 ML IV + SPIKE MINIBAG* 100 ML IV SCH ×3 (05:40→22:00)
[2018-05-07 05:50] LABS: BASOPHILS % (AUTO) 0.2 % (0.2-1.0); EOSINOPHILS % (AUTO) 0.3 % (0.9-2.9); HEMATOCRIT 26.6 % (36.0-47.0); HEMOGLOBIN 8.8 g/dL (12.0-16.0); LYMPHOCYTES # (AUTO) 1.6 X10^3/uL (1.3-2.9); LYMPHOCYTES % (AUTO) 15.5 % (21.0-51.0); MEAN CORPUSCULAR HEMOGLOBIN 27.9 pg (27.0-34.0); MEAN CORPUSCULAR HGB CONC 33.1 g/dL (33.0-35.0); MEAN CORPUSCULAR VOLUME 84.3 fL (80.0-100.0); MEAN PLATELET VOLUME 7.9 fL (7.4-11.0); MONOCYTES # (AUTO) 0.8 x10^3/uL (0.3-0.8); MONOCYTES % (AUTO) 7.7 % (0.0-13.0); NEUTROPHILS # (AUTO) 7.8 x10^3/uL (2.2-4.8); NEUTROPHILS % (AUTO) 76.3 % (42.0-75.0); PLATELET COUNT 318 X10^3/uL (150.0-450.0); RED BLOOD COUNT 3.16 X10^6/uL (3.5-5.4); RED CELL DISTRIBUTION WIDTH 14.5 % (11.6-16.5); WHITE BLOOD COUNT 10.3 X10^3/uL (3.6-10.0)
[2018-05-07 05:55] LABS: CARBON DIOXIDE 21.7 mmol/L (21-32); CHLORIDE 102 mmol/L (98-107); CREATININE 1.02 mg/dL (0.55-1.02); SODIUM 136 mmol/L (136-145); eGFR NON BLACK RACES 56 (>60)
[2018-05-07 06:24] LABS: ALANINE AMINOTRANSFERASE 38 Units/L (12-78); ALBUMIN 1.9 g/dL (3.4-5.0); ALKALINE PHOSPHATASE 370 Units/L (46-116); ASPARTATE AMINO TRANSFERASE 28 Units/L (15-37); BLOOD UREA NITROGEN 19 mg/dL (7-18); CALCIUM 9.1 mg/dL (8.5-10.1); COR CA(FOR HYPOALB) 10.8 mg/dL (8.5-10.1); TOTAL PROTEIN 6.8 g/dL (6.4-8.2)
[2018-05-07] MEDS: DUONEB 0.5 MG/3 MG NEB SCH ×4 (08:26→20:13)
[2018-05-07] MEDS: PATIENT'S HOME MEDICATION SUBCUT SCH ×3 (08:58→20:58)
[2018-05-07] MEDS: ROBITUSSIN DM PO SCH ×4 (08:58→22:00)
[2018-05-07] MEDS: VIBRAMYCIN 100 MG in D5W 250 ML IV 250 ML IV SCH ×2 (08:59→21:00)
[2018-05-07] MEDS ORDERED: CLINIMIX 4.25 %/10 % 1,000 ML with MVI INJ (ADULT) 10 ML, TRACE ELEMENTS INJ 10 ML, TPN... IV NR ×4 (21:00)
[2018-05-07] MEDS: NORCO 10/325 TAB PO PRN (23:45)
[2018-05-07] MEDS: PATIENT'S HOME MEDICATION IV SCH (23:50)
[2018-05-08] MEDS: TUSSIONEX PENNKINETIC SUSP PO PRN (01:00)
[2018-05-08] MEDS: TORADOL 30 MG VIAL IVP SCH ×2 (04:06→08:40)
[2018-05-08] MEDS: NS 1000 ML 1,000 ML IV SCH (04:07)
[2018-05-08 05:13] LABS: BASOPHILS % (AUTO) 0.3 % (0.2-1.0); EOSINOPHILS # (AUTO) 0.1 x10^3/uL (0.0-0.2); EOSINOPHILS % (AUTO) 0.5 % (0.9-2.9); HEMATOCRIT 26.1 % (36.0-47.0); HEMOGLOBIN 8.5 g/dL (12.0-16.0); LYMPHOCYTES # (AUTO) 1.4 X10^3/uL (1.3-2.9); LYMPHOCYTES % (AUTO) 13.9 % (21.0-51.0); MEAN CORPUSCULAR HEMOGLOBIN 28.1 pg (27.0-34.0); MEAN CORPUSCULAR HGB CONC 32.5 g/dL (33.0-35.0); MEAN CORPUSCULAR VOLUME 86.4 fL (80.0-100.0); MEAN PLATELET VOLUME 7.8 fL (7.4-11.0); MONOCYTES # (AUTO) 0.7 x10^3/uL (0.3-0.8); MONOCYTES % (AUTO) 6.9 % (0.0-13.0); NEUTROPHILS # (AUTO) 7.8 x10^3/uL (2.2-4.8); NEUTROPHILS % (AUTO) 78.4 % (42.0-75.0); PLATELET COUNT 337 X10^3/uL (150.0-450.0); RED BLOOD COUNT 3.02 X10^6/uL (3.5-5.4); RED CELL DISTRIBUTION WIDTH 14.3 % (11.6-16.5); WHITE BLOOD COUNT 9.9 X10^3/uL (3.6-10.0)
[2018-05-08 05:24] LABS: ALANINE AMINOTRANSFERASE 35 Units/L (12-78); ALKALINE PHOSPHATASE 325 Units/L (46-116); ASPARTATE AMINO TRANSFERASE 26 Units/L (15-37); BLOOD UREA NITROGEN 20 mg/dL (7-18); CALCIUM 9.3 mg/dL (8.5-10.1); CARBON DIOXIDE 22.9 mmol/L (21-32); CHLORIDE 103 mmol/L (98-107); COR CA(FOR HYPOALB) 10.9 mg/dL (8.5-10.1); CREATININE 1.04 mg/dL (0.55-1.02); SODIUM 136 mmol/L (136-145); TOTAL PROTEIN 6.8 g/dL (6.4-8.2); eGFR NON BLACK RACES 55 (>60)
[2018-05-08] MEDS: FORTAZ or TAZICEF VIAL INJ 1 G in NS 100 ML IV + SPIKE MINIBAG* 100 ML IV SCH (05:45)
--- NOTE | 2018-05-08 06:25 | RAD ---
Chest, one view Indication: Shortness of breath Comparison: 05/06/2018 Findings: The heart is normal in size. There is stable atelectasis versus pleural parenchymal scarring of the left lung base. No acute infiltrate or significant effusion is identified. Left-sided PICC terminates over the left brachiocephalic vein. No pneumothorax identified. Impression: No acute chest process or significant interval change. Reported By:
[2018-05-08 08:04] VITALS: BP 134/62
[2018-05-08] MEDS: DUONEB 0.5 MG/3 MG NEB SCH (08:25)
[2018-05-08] MEDS: VIBRAMYCIN 100 MG in D5W 250 ML IV 250 ML IV SCH (08:40)
[2018-05-08] MEDS: ROBITUSSIN DM PO SCH (08:40)
[2018-05-08] MEDS: PATIENT'S HOME MEDICATION SUBCUT SCH (09:29)
== END 2018-05-08 11:30 | disposition home or self-care (01) | DRG 195 ==
LOC: MED/SURG → OBSVTOIN 14:53
PROVIDERS: ADMIT Internal Medicine; ATTEND Internal Medicine
DX: J18.0 Bronchopneumonia, unspecified organism; Z95.9 Presence of cardiac and vascular implant and graft, unspecified; B95.7 Other staphylococcus as the cause of diseases classified elsewhere; Z93.3 Colostomy status; M54.89 Other dorsalgia; R06.02 Shortness of breath; D63.8 Anemia in other chronic diseases classified elsewhere; R09.02 Hypoxemia; R09.1 Pleurisy
CPT/HCPCS: 36415; 36600; 71010; 71020; 71045; 71046; 80053; 81001; 82550; 82553; 82607; 82728; 82746; 82803; 83540; 83735; 84134; 84466; 84484; 85025; 87040; 87070; 87077; 87186; 87205; 87502; 93005; 94640; 94760; A4222; B4189; J0713; J0885; J1642; J1885; J2997; J3490; J7030; J7050; J7060; J7620

== ENCOUNTER 2018-05-14 12:18 | Inpatient (IN) ==
[2018-05-14 12:24] VITALS: BMI 26.4
[2018-05-14 13:03] LABS: BASOPHILS # (AUTO) 0.1 X10^3/uL (0.0-0.1); BASOPHILS % (AUTO) 0.5 % (0.2-1.0); EOSINOPHILS % (AUTO) 0.5 % (0.9-2.9); HEMATOCRIT 30.8 % (36.0-47.0); LYMPHOCYTES % (AUTO) 10.4 % (21.0-51.0); MEAN CORPUSCULAR HEMOGLOBIN 27.3 pg (27.0-34.0); MEAN CORPUSCULAR HGB CONC 32.5 g/dL (33.0-35.0); MEAN CORPUSCULAR VOLUME 83.8 fL (80.0-100.0); MEAN PLATELET VOLUME 7.9 fL (7.4-11.0); MONOCYTES # (AUTO) 0.8 x10^3/uL (0.3-0.8); NEUTROPHILS % (AUTO) 80.6 % (42.0-75.0); PLATELET COUNT 318 X10^3/uL (150.0-450.0); RED BLOOD COUNT 3.67 X10^6/uL (3.5-5.4); RED CELL DISTRIBUTION WIDTH 14.5 % (11.6-16.5)
--- NOTE | 2018-05-14 13:07 | DR.DIZZY ---
HPI Time seen Time Seen by Provider: 05/14/18 12:37 PCP Primary Care Physician: MANJU Hammond Chief Complaint Doctor Comments: She c/o generalized weakness since being d/c a weak ago. Still has non-productive cough. Also she c/o nausea and fever. Chief Complaint:: FAMILY MEMBER STATES PT. WAS DISCHARGED HOME 1 WEEK AGO TODAY FROM HOSPITAL BECAUSE SHE HAD PNEUMONIA AND PLEURISY. FAMILY MEMBER STATES SINCE PT. HAS BEEN HOME, SHE HAS GOTTEN WEAKER AND IS UNABLE TO DO ANYTHING FOR HERSELF. PT. C/O WEAKNESS, PRODUCTIVE COUGH, N/V AND FEVER. Source History Provided: Patient and Family Member Mode of Arrival Mode of Arrival: Wheelchair Timing Onset of Chief Complaint: 05/07/18 Context Stroke Symptoms: None PMH PMH Past Medical History: Yes Past Medical History: Hypertension Past Surgical History: Yes Surgical History: Bowel Resection, Hysterectomy, Ortho Surgery and Other Past Surgical History Comment: COLOSTOMY Family History History of Family Medical Conditions: Yes Family Medical History: Diabetes Mellitus, SC and Hypertension Social History Does patient currently use any type of tobacco product: No Have you used tobacco products in the last 12 months: No Type of Tobacco Use: None Does any household member use tobacco: No Alcohol Use: None Do you use any recreational Drugs:: No Lives With: Family Lives Where: Home infectious screening In the last 2 months have you had wt loss of >10#?: NO Have you had fever, night sweats or hemotysis?: No Have you traveled outside the country in the last 6 months?: No Isolation: Standard ROS Review of Systems Constitutional: Fever and Weakness Eyes: No Symptoms Reported Respiratoy: Non-Productive Cough Cardiovascular: No Symptoms Reported Gastrointestinal/Abdominal: Nausea Genitourinary: No Symptoms Reported Neurological: No Symptoms Reported Musculoskeletal: No Symptoms Reported Integumentary: No Symptoms Reported Hematologic/Lymphatic: No Symptoms Reported Endocrine: No Symptoms Reported Psychiatric: No Symptoms Reported PE Vital Signs Vitals: Temperature 98.1 F Pulse Rate [Right Brachial] 74 Pulse Rate 89 Respiratory Rate 16 Blood Pressure [Left Arm] 166/77 Blood Pressure [Right Arm] 135/76 Blood Pressure 101/55 O2 Sat by Pulse Oximetry 95 General Limitations: No Limitations General Appearance: Alert and In No Apparent Distress Head Head Exam: Normal Inspection, Atraumatic and Normocephalic Eyes Eye exam: Normal Appearance, PERRL and EOMI ENT ENT Exam: Normal Exam, Normal Oropharynx and Mucous Membranes Moist Neck Neck Exam: Normal Inspection and Trachea Midline Chest Chest Inspection: Normal Inspection and Symmetric Chest Wall Rise Respiratory Respiratory Exam: Normal Lung Sounds Bilat Cardiovascular Cardiovascular Exam: Regular Rate, Normal Rhythm, +S1 and +S2 Abdominal Exam Abdominal Exam: Normal Inspection, Normal Bowel Sounds and Soft Extremeties Extremities Exam: Normal Inspection Neurologic Neurological Exam: Alert and Oriented X3 Speech: Fluid Speech Psychiatric Psychiatric Exam: Normal Mood and Flat Affect Skin Skin Exam: Warm, Dry, Intact and Normal Color ROR Labs Reviewed Result Diagrams: 05/14/18 12:52 05/14/18 12:52 Laboratory: WBC 10.0 X10^3/uL (3.6-10.0) 05/14/18 12:52 RBC 3.67 X10^6/uL (3.5-5.4) 05/14/18 12:52 Hgb 10.0 g/dL (12.0-16.0) L 05/14/18 12:52 Hct 30.8 % (36.0-47.0) L 05/14/18 12:52 MCV 83.8 fL (80.0-100.0) 05/14/18 12:52 MCH 27.3 pg (27.0-34.0) 05/14/18 12:52 MCHC 32.5 g/dL (33.0-35.0) L 05/14/18 12:52 RDW 14.5 % (11.6-16.5) 05/14/18 12:52 Plt Count 318 X10^3/uL (150.0-450.0) 05/14/18 12:52 MPV 7.9 fL (7.4-11.0) 05/14/18 12:52 Neut % (Auto) 80.6 % (42.0-75.0) H 05/14/18 12:52 Lymph % (Auto) 10.4 % (21.0-51.0) L 05/14/18 12:52 [place] % (Auto) 8.0 % (0.0-13.0) 05/14/18 12:52 Eos % (Auto) 0.5 % (0.9-2.9) L 05/14/18 12:52 Baso % (Auto) 0.5 % (0.2-1.0) 05/14/18 12:52 Neut # (Auto) 8.0 x10^3/uL (2.2-4.8) H 05/14/18 12:52 Lymph # (Auto) 1.0 X10^3/uL (1.3-2.9) L 05/14/18 12:52 [place] # (Auto) 0.8 x10^3/uL (0.3-0.8) 05/14/18 12:52 Eos # (Auto) 0.0 x10^3/uL (0.0-0.2) 05/14/18 12:52 Baso # (Auto) 0.1 X10^3/uL (0.0-0.1) 05/14/18 12:52 Absolute Nucleated RBC 0.0 /100WBC 05/14/18 12:52 Sodium 133 mmol/L (136-145) L 05/14/18 12:52 Corrected Sodium 135 mmol/L (136-145) L 05/14/18 12:52 Potassium 4.2 mmol/L (3.5-5.1) 05/14/18 12:52 Chloride 101 mmol/L (98-107) 05/14/18 12:52 Carbon Dioxide 20.6 mmol/L (21-32) L 05/14/18 12:52 BUN 50 mg/dL (7-18) H 05/14/18 12:52 Creatinine 1.56 mg/dL (0.55-1.02) H 05/14/18 12:52 Est GFR (MDRD) Af Amer 42 (>60) L 05/14/18 12:52 Est GFR (MDRD) Non-Af 35 (>60) L 05/14/18 12:52 Glucose 181 mg/dL (65-99) H 05/14/18 12:52 Calcium 9.9 mg/dL (8.5-10.1) 05/14/18 12:52 Corrected Calcium 11.4 mg/dL (8.5-10.1) H 05/14/18 12:52 Total Bilirubin 1.00 mg/dL (0.2-1.0) 05/14/18 12:52 AST 47 Units/L (15-37) H 05/14/18 12:52 ALT 55 Units/L (12-78) 02/24/19 12:52 Alkaline Phosphatase 373 Units/L (46-116) H 05/14/18 12:52 Total Protein 7.3 g/dL (6.4-8.2) 05/14/18 12:52 Albumin 2.1 g/dL (3.4-5.0) L 05/14/18 12:52 Globulin 5.2 g/dL (2.5-4.5) H 05/14/18 12:52 Albumin/Globulin Ratio 0.4 Ratio (1.1-2.1) L 05/14/18 12:52 TSH 3rd Generation 1.065 uIU/mL (0.358-3.74) 05/14/18 12:52 Diagnosis Discharge Problem: Weakness generalized, Acute renal insufficiency
[2018-05-14 13:23] LABS: ALBUMIN 2.1 g/dL (3.4-5.0); CALCIUM 9.9 mg/dL (8.5-10.1); CARBON DIOXIDE 20.6 mmol/L (21-32); COR CA(FOR HYPOALB) 11.4 mg/dL (8.5-10.1); CREATININE 1.56 mg/dL (0.55-1.02); TOTAL PROTEIN 7.3 g/dL (6.4-8.2); TSH (3RD GENERATION) 1.065 uIU/mL (0.358-3.74)
--- NOTE | 2018-05-14 13:37 | RAD ---
Examination: Abdomen series with PA chest, four views History: Nausea and vomiting comparison 01/11/2018 Findings: PA chest demonstrates normal heart size with mild bibasal atelectasis or fibrotic scarring. A left-sided PICC extends to the central mediastinum. Supine and upright views of abdomen demonstrate nonobstructive gas pattern. Colostomy stoma is suggested right lower quadrant. There is no evidence for intestinal obstruction, perforation, mass formation or ascites. Impression: No acute chest or abdominal abnormality noted. Postsurgical findings related to colostomy. Reported By:
[2018-05-14] MEDS ORDERED: NS 1000 ML 1,000 ML ONE (14:49)
[2018-05-14] MEDS ORDERED: NS 1000 ML 1,000 ML IV ONE (15:00)
[2018-05-14] MEDS ORDERED: PHENERGAN TAB 25 MG PO PRN (16:08)
[2018-05-14] MEDS ORDERED: PROVENTIL NEB TX 0.083% 2.5MG/ 3ML IN PRN (16:08)
[2018-05-14] MEDS ORDERED: MORPHINE SULFATE INJ 2 MG INJ ONE (16:54)
[2018-05-14] MEDS ORDERED: MORPHINE SULFATE INJ 2 MG INJ IVP PRN (16:58)
[2018-05-14] MEDS ORDERED: NYSTATIN CREAM ONE (17:01)
[2018-05-14] MEDS ORDERED: NYSTATIN POWDER ONE (17:01)
[2018-05-14] MEDS ORDERED: NYSTATIN CREAM TOP PRN (17:18)
[2018-05-14] MEDS ORDERED: NYSTATIN POWDER TOP PRN (17:18)
[2018-05-14] MEDS: D5 NS 1000 ML 1,000 ML IV SCH (18:34)
[2018-05-14 18:45] LABS: BILIRUBIN,URINE NEGATIVE (NEGATIVE); BLOOD/HEMOGLOBIN,URINE 1+ (NEGATIVE); GLUCOSE, URINE NEGATIVE (NEGATIVE); KETONES,URINE NEGATIVE (NEGATIVE); LEUKOCYTE ESTERASE ,URINE 1+ (NEGATIVE); NITRITES,URINE NEGATIVE (NEGATIVE); PROTEIN,URINE 3+ (NEGATIVE); UROBILINOGEN,URINE NORMAL (NORMAL)
[2018-05-14 18:52] LABS: COLOR,URINE YELLOW (YELLOW)
[2018-05-14 18:59] LABS: APPEARANCE,URINE SLIGHTLY HAZY (CLEAR)
[2018-05-14 19:05] LABS: BACTERIA,URINE NEGATIVE /HPF (NEGATIVE); RBC,URINE 0-2 /HPF (NONE SEEN); SQUAMOUS EPITHELIAL CELL,UR RARE /HPF (NEGATIVE)
[2018-05-14 19:06] LABS: AMORPHOUS SEDIMENT,UR 2+ /HPF (NEGATIVE); FINE GRANULAR CASTS,URINE FEW /LPF (NEGATIVE); HYALINE CASTS, URINE RARE /LPF (NEGATIVE); MUCUS,URINE MODERATE /HPF (NEGATIVE)
[2018-05-14] MEDS: SINGULAIR TAB 10 MG PO SCH (20:28)
[2018-05-14] MEDS: XANAX PO PRN (20:28)
[2018-05-14] MEDS: VIBRAMYCIN PO SCH (20:28)
[2018-05-14] MEDS: PEPCID TAB 20 MG PO SCH (20:28)
[2018-05-14] MEDS: REQUIP PO SCH (20:28)
[2018-05-14] MEDS: KLONOPIN TAB 1 MG PO SCH (20:28)
[2018-05-14] MEDS: NEURONTIN CAP 300 MG PO SCH (20:28)
[2018-05-14] MEDS: ZANAFLEX PO SCH (20:29)
[2018-05-14] MEDS: TYLENOL 325 MG TAB PO PRN (20:30)
[2018-05-14] MEDS ORDERED: SINGULAIR TAB 10 MG PO SCH (21:00)
[2018-05-14] MEDS: NORCO 10/325 TAB PO SCH (21:08)
[2018-05-14] MEDS ORDERED: NS 250 ML IV 250 ML IV ONE ×3 (22:26→23:32)
[2018-05-14] MEDS ORDERED: NS 500 ML IV 500 ML IV ONE (22:34)
[2018-05-14] MEDS: NARCAN INJ IVP ONE (23:00)
[2018-05-14] MEDS ORDERED: NARCAN INJ ONE (23:21)
[2018-05-15] MEDS ORDERED: NARCAN INJ IVP ONE (01:12)
[2018-05-15] MEDS: NARCAN INJ IVP ONE (03:08)
[2018-05-15] MEDS: SYNTHROID 75 mcg TAB PO SCH (06:05)
[2018-05-15] MEDS: D5 NS 1000 ML 1,000 ML IV SCH ×3 (06:05→20:28)
[2018-05-15] MEDS: LANTISEPTIC TOP PRN (06:06)
[2018-05-15] MEDS: NORCO 10/325 TAB PO SCH ×3 (06:12→21:58)
[2018-05-15 06:24] LABS: BASOPHILS # (AUTO) 0.1 X10^3/uL (0.0-0.1); BASOPHILS % (AUTO) 0.4 % (0.2-1.0); EOSINOPHILS % (AUTO) 0.3 % (0.9-2.9); HEMATOCRIT 28.9 % (36.0-47.0); HEMOGLOBIN 9.3 g/dL (12.0-16.0); LYMPHOCYTES # (AUTO) 1.9 X10^3/uL (1.3-2.9); LYMPHOCYTES % (AUTO) 14.9 % (21.0-51.0); MEAN CORPUSCULAR HGB CONC 32.1 g/dL (33.0-35.0); MEAN CORPUSCULAR VOLUME 84.1 fL (80.0-100.0); MEAN PLATELET VOLUME 8.7 fL (7.4-11.0); MONOCYTES # (AUTO) 1.1 x10^3/uL (0.3-0.8); MONOCYTES % (AUTO) 8.4 % (0.0-13.0); NEUTROPHILS # (AUTO) 9.8 x10^3/uL (2.2-4.8); PLATELET COUNT 274 X10^3/uL (150.0-450.0); RED BLOOD COUNT 3.43 X10^6/uL (3.5-5.4); RED CELL DISTRIBUTION WIDTH 14.7 % (11.6-16.5); WHITE BLOOD COUNT 12.9 X10^3/uL (3.6-10.0)
[2018-05-15 06:53] LABS: ALBUMIN 1.9 g/dL (3.4-5.0); CALCIUM 9.7 mg/dL (8.5-10.1); COR CA(FOR HYPOALB) 11.4 mg/dL (8.5-10.1); CREATININE 1.6 mg/dL (0.55-1.02)
[2018-05-15 07:15] LABS: GIANT PLATELET OCCASIONAL; PLATELET MORPHOLOGY COMMENT NORMAL (NORMAL)
[2018-05-15] MEDS: ROBITUSSIN DM PO PRN ×2 (07:44→19:58)
--- NOTE | 2018-05-15 07:52 | RAD ---
HISTORY: Cough short of breath Study: One-view chest Comparison: One-view chest 05/08/2018 Technique: One-view AP chest Findings: Left shoulder prosthesis is in place and normal alignment. EKG leads overlie the thorax. Soft tissues bone detail are normal. The heart size configuration airway vascularity are normal. The atelectasis and/or effusion left lung base has resolved since last chest film of 05/08/2018. PICC line remains in place entering on the left the airway is normal mediastinal structures are normal the lungs are clear IMPRESSION: 1. Resolution of the left basilar atelectasis and/or effusion since last film 05/08/2018. 2. Lungs are clear 3. PICC line is seen entering on the left Reported By:
[2018-05-15] MEDS: LOVENOX INJ 30 MG SYR SC SCH (08:48)
[2018-05-15] MEDS: PROTONIX TAB 40 MG PO SCH (08:49)
[2018-05-15] MEDS: MAXZIDE 37.5/25 MG PO SCH (08:49)
[2018-05-15] MEDS: VITAMIN C PO SCH (08:49)
[2018-05-15] MEDS: VIBRAMYCIN PO SCH ×2 (08:49→20:09)
[2018-05-15] MEDS: NEURONTIN CAP 300 MG PO SCH ×2 (08:49→20:07)
[2018-05-15] MEDS: ZESTRIL TAB 5 MG PO SCH (08:50)
[2018-05-15] MEDS ORDERED: CEFTIN PO SCH (09:00)
[2018-05-15] MEDS ORDERED: PHENERGAN INJ 25 MG ONE (09:34)
[2018-05-15] MEDS ORDERED: NS 1000 ML 1,000 ML IV ONE (09:49)
[2018-05-15] MEDS ORDERED: PHENERGAN INJ 25 MG IM PRN (09:50)
[2018-05-15] MEDS ORDERED: ZOFRAN INJ 4 MG VIAL IVP PRN (09:50)
[2018-05-15] MEDS ORDERED: PHARMACY CONSULT - DOSE _____ XX SCH (10:00)
[2018-05-15] MEDS: TORADOL 30 MG VIAL IVP SCH ×3 (10:24→21:59)
[2018-05-15] MEDS: ZOSYN VIAL 3.375 GRAMS 3.375 G in NS 100 ML IV + SPIKE MINIBAG* 100 ML IV SCH ×2 (11:04→21:06)
--- NOTE | 2018-05-15 16:09 | MRI ---
MRI lumbar spine without contrast Indication: Severe lower back pain Technique: Multiplanar, multi sequence imaging of the lumbar spine without IV contrast administration. Findings: Moderate levoscoliosis of the lumbar spine apex at L3. There is no spondylolisthesis of the lumbar spine. There is diffuse disc desiccation throughout the lumbar spine with disc space loss. Increased fluid signal is noted within the L2-3 disc space however there is no cortical regularity or destructive changes within the adjacent endplates. No localizing bone marrow signal abnormality within the lumbar spine. Conus has a normal termination. No prevertebral or paraspinal soft tissue swelling or fluid collection. Imaging of the upper abdomen demonstrates no acute inflammatory process. There is a large T2 hyperintense lesion/cyst projecting from the lower pole the right kidney. At T12-L1 broad-based disc bulge and mild facet arthropathy causes mild spinal canal stenosis with no neural foraminal stenosis. At L1-2 broad-based disc bulge with bilateral facet arthropathy causes mild spinal canal stenosis with [id number] right and mild left-sided neural foraminal stenosis. At L2-3 broad-based disc bulge with moderate facet arthropathy causes mild spinal canal stenosis and moderate right lateral recess compression there is moderate severe right and moderate left-sided neural foraminal stenosis. At L3-4 broad-based disc bulge and moderate facet arthropathy causes mild spinal canal stenosis with moderate left and mild right-sided lateral recess compression. There is mild right and moderate left-sided neural foraminal stenosis At L4-5 broad-based disc bulge and mild facet arthropathy causes mild spinal canal stenosis with mild right and [id number] left neural foraminal stenosis. At L5-S1 broad-based disc bulge with facet arthropathy causes mild spinal canal stenosis without significant neural foraminal narrowing. Impression: 1.Multilevel discogenic degenerative change and facet arthropathy causing varying degrees of spinal canal and neural foraminal stenosis as described above. 2. Moderate levoscoliosis of the lumbar spine apex at L2-3 . Reported By:
[2018-05-15] MEDS: PEPCID TAB 20 MG PO SCH (20:07)
[2018-05-15] MEDS: SINGULAIR TAB 10 MG PO SCH (20:08)
[2018-05-15] MEDS: REQUIP PO SCH (20:09)
[2018-05-15] MEDS: ZANAFLEX PO SCH (20:09)
[2018-05-15] MEDS: PATIENT'S HOME MEDICATION SC SCH (20:10)
--- NOTE | 2018-05-15 21:41 | PCM.PROG ---
Progress Note - Progress Note for Day of Date of Exam: 05/15/18 - Subjective Subjective: WAS ADMITTED YESTERDAY WITH COMPLAINTS OF GENERALIZED WEAKNESS, NON-PRODUCTIVE COUGH, N/V, AND SEVERE LOWER BACK PAIN. SHE WAS RECENTLY BEING TREATED FOR PNEUMONIA AND WAS RELEASED OVER THE WEEKEND. TODAY, SHE IS ALERT AND ORIENTED, LYING IN BED ON MORNING ROUNDS. SHE CONTINUES WITH COMPLAINTS OF GENERALIZED WEAKNESS, SEVERE LOWER BACK PAIN, AND A NON- PRODUCTIVE COUGH. HER VITALS THIS MORNING ARE 97.5-60-24-99%-140/63. LABS WERE OBTAINED. ABNORMAL LAB VALUES INCLUDE THE FOLLOWING: WBC 12.9, RBC 3.43, HGB 9.3, HCT 28.9, CARBON DIOXIDE 19.0, BUN 40, CREATININE 1.60, GLUCOSE 138, AST 45, ALK PHOS 316, ALBUMIN 1.9, GLOBULIN 5.1. A CHEST XRAY WAS OBTAINED TODAY AND REVEALED: Resolution of the left basilar atelectasis and/or effusion since last film 05/08/2018. Lungs are clear. PICC line is seen entering on the left. STAFF REPORTS THAT PATIENTS BLOOD PRESSURE FELL EARLY THIS MORNING AFTER BEING GIVEN MORPHINE FOR PAIN. SHE WAS GIVEN A NORMAL SALINE BOLUS. TODAY, WE WILL BOLUS HER WITH ANOTHER LITER OF NORMAL SALINE AND THEN INCREASE HER MAINTENANCE FLUIDS TO 150 ML/HR. WE WILL START ZOSYN AND TORADOL 15MG IV Q6H. WE PLAN TO OBTAIN A LUMBAR SPINE MRI TODAY AND AN ABDOMEN/PELVIS CT WITH CONTRAST IN THE MORNING. OTHERWISE, WE WILL FOLLOW UP WITH AM LABS AND CONTINUE TO MONITOR. - Past Medical Family Social History Past Med/Fam/Surg Hx: No changes since H&P Allergies: Allergies ciprofloxacin [From Cipro] Allergy (Verified 05/14/18 12:23) metronidazole [From Flagyl] Allergy (Verified 05/14/18 12:23) - Review of Systems ROS: No change since H&P - Vital Signs and I&O's Vital Signs: Temperature 97.8 F Pulse Rate [Right Brachial] 74 Pulse Rate 65 Respiratory Rate 22 Blood Pressure [Left Arm] 166/77 Blood Pressure [Right Arm] 135/76 Blood Pressure 105/63 O2 Sat by Pulse Oximetry 96 Intake and Output: Intake & Output 05/13/18 05/14/18 05/15/18 05/16/18 11:59 11:59 11:59 11:59 Intake Total 2250 / 2250 1560 / 1560 Output Total 1400 / 1400 1110 / 1110 Balance 850 / 850 450 / 450 - Physical Exam Oriented: Normal Eyes: Normal Ear: Normal Nose: Normal Throat: Normal Respiratory: Generalized, Diminished Cardiovascular: Normal : Normal Auscultation: Bowel Sounds: Normal Palpation: Normal Tenderness: Diffuse, Mild Skin: Normal Musculoskeletal: Back:Lumbar, Tender Psychiatric: Normal Mood Description: Calm Affect: Normal Speech Pattern: Clear, Appropriate - Laboratory and Diagnostics Result Diagrams: 05/15/18 05:45 05/15/18 05:45 Labs: Laboratory WBC 12.9 X10^3/uL (3.6-10.0) H 05/15/18 05:45 RBC 3.43 X10^6/uL (3.5-5.4) L 05/15/18 05:45 Hgb 9.3 g/dL (12.0-16.0) L 05/15/18 05:45 Hct 28.9 % (36.0-47.0) L 05/15/18 05:45 MCV 84.1 fL (80.0-100.0) 05/15/18 05:45 MCH 27.0 pg (27.0-34.0) 05/15/18 05:45 MCHC 32.1 g/dL (33.0-35.0) L 05/15/18 05:45 RDW 14.7 % (11.6-16.5) 05/15/18 05:45 Plt Count 274 X10^3/uL (150.0-450.0) 05/15/18 05:45 Plt Count Comment Adequate (ADEQUATE) 05/15/18 05:45 MPV 8.7 fL (7.4-11.0) 05/15/18 05:45 Neut % (Auto) 76.0 % (42.0-75.0) H 05/15/18 05:45 Lymph % (Auto) 14.9 % (21.0-51.0) L 05/15/18 05:45 [place] % (Auto) 8.4 % (0.0-13.0) 05/15/18 05:45 Eos % (Auto) 0.3 % (0.9-2.9) L 05/15/18 05:45 Baso % (Auto) 0.4 % (0.2-1.0) 05/15/18 05:45 Neut # (Auto) 9.8 x10^3/uL (2.2-4.8) H 05/15/18 05:45 Lymph # (Auto) 1.9 X10^3/uL (1.3-2.9) 05/15/18 05:45 [place] # (Auto) 1.1 x10^3/uL (0.3-0.8) H 05/15/18 05:45 Eos # (Auto) 0.0 x10^3/uL (0.0-0.2) 05/15/18 05:45 Baso # (Auto) 0.1 X10^3/uL (0.0-0.1) 05/15/18 05:45 Absolute Nucleated RBC 0.0 /100WBC 05/15/18 05:45 Plt Clumps, EDTA Rare 05/15/18 05:45 Giant Platelets Occasional 05/15/18 05:45 Plt Morphology Comment Normal (NORMAL) 05/15/18 05:45 RBC Morphology Normal (NORMAL) 05/15/18 05:45 Sodium 137 mmol/L (136-145) 05/15/18 05:45 Corrected Sodium 138 mmol/L (136-145) 05/15/18 05:45 Potassium 3.9 mmol/L (3.5-5.1) 05/15/18 05:45 Chloride 105 mmol/L (98-107) 05/15/18 05:45 Carbon Dioxide 19.0 mmol/L (21-32) L 05/15/18 05:45 BUN 40 mg/dL (7-18) H 05/15/18 05:45 Creatinine 1.60 mg/dL (0.55-1.02) H 05/15/18 05:45 Est GFR (MDRD) Af Amer 41 (>60) L 05/15/18 05:45 Est GFR (MDRD) Non-Af 34 (>60) L 05/15/18 05:45 Glucose 138 mg/dL (65-99) H 05/15/18 05:45 POC Glucose (mg/dL) 100 mg/dL (65-99) H 05/15/18 15:33 Lactic Acid 1.3 mmol/L (0.4-2.0) 05/14/18 15:23 Calcium 9.7 mg/dL (8.5-10.1) 05/15/18 05:45 Corrected Calcium 11.4 mg/dL (8.5-10.1) H 05/15/18 05:45 Total Bilirubin 1.00 mg/dL (0.2-1.0) 05/15/18 05:45 AST 45 Units/L (15-37) H 05/15/18 05:45 ALT 50 Units/L (12-78) 05/15/18 05:45 Alkaline Phosphatase 316 Units/L (46-116) H 05/15/18 05:45 Total Protein 7.0 g/dL (6.4-8.2) 05/15/18 05:45 Albumin 1.9 g/dL (3.4-5.0) L 05/15/18 05:45 Globulin 5.1 g/dL (2.5-4.5) H 05/15/18 05:45 Albumin/Globulin Ratio 0.4 Ratio (1.1-2.1) L 05/15/18 05:45 TSH 3rd Generation 1.065 uIU/mL (0.358-3.74) 05/14/18 12:52 Specimen Type Clean catch urine 05/14/18 17:47 Urine Color Yellow (YELLOW) 05/14/18 17:47 Urine Appearance Slightly hazy (CLEAR) 05/14/18 17:47 Urine pH 6.0 (5.0 - 8.0) 05/14/18 17:47 Ur Specific [place] 1.020 (1.000-1.030) 05/14/18 17:47 Urine Protein 3+ (NEGATIVE) 05/14/18 17:47 Urine Glucose (UA) Negative (NEGATIVE) 05/14/18 17:47 Urine Ketones Negative (NEGATIVE) 05/14/18 17:47 Urine Occult Blood 1+ (NEGATIVE) 05/14/18 17:47 Urine Nitrite Negative (NEGATIVE) 05/14/18 17:47 Urine Bilirubin Negative (NEGATIVE) 05/14/18 17:47 Urine Urobilinogen Normal (NORMAL) 05/14/18 17:47 Ur Leukocyte Esterase 1+ (NEGATIVE) 05/14/18 17:47 Urine RBC 0-2 /HPF (NONE SEEN) 05/14/18 17:47 Urine WBC 3-5 /HPF (NONE SEEN) 05/14/18 17:47 Ur Squamous Epith Cells Rare /HPF (NEGATIVE) 05/14/18 17:47 Amorphous Sediment 2+ /HPF (NEGATIVE) 05/14/18 17:47 Urine Bacteria Negative /HPF (NEGATIVE) 05/14/18 17:47 Hyaline Casts Rare /LPF (NEGATIVE) 05/14/18 17:47 Fine Granular Casts Few /LPF (NEGATIVE) 05/14/18 17:47 Urine Mucus Moderate /HPF (NEGATIVE) 05/14/18 17:47 Ur Culture Indicated? No/not indicated 05/14/18 17:47 Influenza Type A (PCR) Negative (NEGATIVE) 05/14/18 18:11 Influenza Type B (PCR) Negative (NEGATIVE) 05/14/18 18:11 - Plan (1) Weakness generalized Status: Acute (2) Nausea & vomiting Status: Acute Qualifiers: Vomiting type: unspecified Vomiting Intractability: intractable Qualified Code(s): R11.2 - Nausea with vomiting, unspecified (3) Pleurisy Status: Acute
[2018-05-15] MEDS: KLONOPIN TAB 1 MG PO SCH (21:59)
[2018-05-15] MEDS: PATIENT'S HOME MEDICATION IV SCH (22:00)
[2018-05-16] MEDS ORDERED: MAALOX or MYLANTA PO PRN (02:16)
[2018-05-16] MEDS ORDERED: MAALOX or MYLANTA ONE (02:20)
[2018-05-16] MEDS: TORADOL 30 MG VIAL IVP SCH ×4 (04:22→22:10)
[2018-05-16] MEDS: D5 NS 1000 ML 1,000 ML IV SCH ×3 (04:23→22:09)
[2018-05-16] MEDS: ZOSYN VIAL 3.375 GRAMS 3.375 G in NS 100 ML IV + SPIKE MINIBAG* 100 ML IV SCH ×3 (05:09→21:00)
[2018-05-16] MEDS: NORCO 10/325 TAB PO SCH ×3 (05:09→22:10)
[2018-05-16 05:32] LABS: BASOPHILS % (AUTO) 0.3 % (0.2-1.0); EOSINOPHILS # (AUTO) 0.1 x10^3/uL (0.0-0.2); EOSINOPHILS % (AUTO) 1.6 % (0.9-2.9); HEMATOCRIT 29.2 % (36.0-47.0); HEMOGLOBIN 9.3 g/dL (12.0-16.0); LYMPHOCYTES # (AUTO) 1.1 X10^3/uL (1.3-2.9); LYMPHOCYTES % (AUTO) 11.3 % (21.0-51.0); MEAN CORPUSCULAR HEMOGLOBIN 27.2 pg (27.0-34.0); MEAN CORPUSCULAR HGB CONC 31.9 g/dL (33.0-35.0); MEAN CORPUSCULAR VOLUME 85.3 fL (80.0-100.0); MEAN PLATELET VOLUME 8.6 fL (7.4-11.0); MONOCYTES # (AUTO) 0.5 x10^3/uL (0.3-0.8); MONOCYTES % (AUTO) 4.8 % (0.0-13.0); NEUTROPHILS # (AUTO) 7.8 x10^3/uL (2.2-4.8); PLATELET COUNT 257 X10^3/uL (150.0-450.0); RED BLOOD COUNT 3.42 X10^6/uL (3.5-5.4); RED CELL DISTRIBUTION WIDTH 14.8 % (11.6-16.5); WHITE BLOOD COUNT 9.6 X10^3/uL (3.6-10.0)
[2018-05-16 05:38] LABS: CALCIUM 9.8 mg/dL (8.5-10.1); CARBON DIOXIDE 18.8 mmol/L (21-32); COR CA(FOR HYPOALB) 11.4 mg/dL (8.5-10.1); CREATININE 1.82 mg/dL (0.55-1.02); TOTAL PROTEIN 7.1 g/dL (6.4-8.2)
[2018-05-16 05:44] LABS: CKMB % 3.3 % (<4); CREATINE KINASE 30 Units/L (26-192); TROPONIN I < 0.02 ng/mL (0-1.5)
[2018-05-16] MEDS: SYNTHROID 75 mcg TAB PO SCH (07:45)
[2018-05-16] MEDS ORDERED: K-DUR TAB 20 MEQ PO PRN (08:09)
[2018-05-16] MEDS ORDERED: POTASSIUM CHLORIDE LIQ 20 MEQ UDC PO PRN (08:09)
[2018-05-16] MEDS ORDERED: K-RIDER 10 MEQ/NS 100 ML 10 MEQ/100 ML BAG IV PRN (08:09)
[2018-05-16] MEDS ORDERED: MICRO K EXTEN CAP 10 MEQ PO PRN (08:09)
[2018-05-16] MEDS ORDERED: POTASSIUM CHL 40 MEQ/NS 0.45% 500 ML IV PRN (08:09)
[2018-05-16] MEDS ORDERED: MAGNESIUM SULFATE 1 GRAM/100 mL PREMIX 1 GM/100 ML BAG IV PRN (08:09)
[2018-05-16] MEDS ORDERED: POTASSIUM CHL 60 MEQ/NS 0.45% 500 ML IV PRN (08:09)
[2018-05-16] MEDS ORDERED: KLOR-CON PO PRN (08:09)
--- NOTE | 2018-05-16 09:26 | DR.H&P ---
H&P - History & Physical for Day of: H&P Date: 05/14/18 - Chief Complaint Chief Complaint: severe weakness - History of Present Illness History of Present Illness: 73 WF ER ADMISSION AFTER PRESENTING WITH FAMILY MEMBER STATES PT. WAS DISCHARGED HOME 1 WEEK AGO TODAY FROM HOSPITAL BECAUSE SHE HAD PNEUMONIA AND PLEURISY. FAMILY MEMBER STATES SINCE PT. HAS BEEN HOME, SHE HAS GOTTEN WEAKER AND IS UNABLE TO DO ANYTHING FOR HERSELF. PT. C/O WEAKNESS, PRODUCTIVE COUGH, N/V AND FEVER. PT HAS PMH OF HTN, COLOSTOMY S/P COLON RESECTION, FANNY, ARTHRITIS. PT ADMITTED FOR TREATMENT OF DEHYDRATION, SOB, WEAKNESS EVALUATION - Past Medical History Past Medical History: Hypertension Additional Medical History: Cataracts, Diverticulosis, back pain, DDD, Scoliosis, Previous blood transfusion - Past Surgical History Surgical History: Bowel Resection, Hysterectomy, Ortho Surgery, Other Additional Surgical History: Colostomy approx. 6 weeks ago, Bilateral knee replacement, Shoulder replacement, hip replacement. - Family History Family Medical History: Diabetes Mellitus, [place], Hypertension - Social History Does patient currently use any type of tobacco product: No Have you used tobacco products in the last 12 months: No Type of Tobacco Use: None Does any household member use tobacco: No Alcohol Use: None Drug Use: None - Medications Home Medications: ciprofloxacin [From Cipro] Allergy (Verified 05/14/18 12:23) metronidazole [From Flagyl] Allergy (Verified 05/14/18 12:23) CONTINUE taking the following medications albuterol sulfate 2.5 mg INHALATION BID 05/14/18 [History] New Prescriptions lisinopril 2.5 mg PO DAILY #0 tab 05/14/18 [Rx] - Review of Systems Constitutional: Weakness Eyes: No Symptoms Reported ENT: No Symptoms Reported Respiratory: Shortness of Breath Cardiovascular: No Symptoms Reported Gastrointestinal: Nausea, Abdominal Pain Genitourinary: Incontinence Musculoskeletal: Back Pain Skin: Wound Neurological: Weakness - Physical Exam Vital Signs: Temperature 98.7 F Pulse Rate [Right Brachial] 74 Pulse Rate 80 Respiratory Rate 26 Blood Pressure [Left Arm] 166/77 Blood Pressure [Right Arm] 135/76 Blood Pressure 136/71 O2 Sat by Pulse Oximetry 100 Oriented: Normal Eyes: Normal Ear: Normal Nose: Normal Throat: Dry Respiratory: RML Diminished, RLL Diminished, LML Diminished, LLL Diminished Cardiovascular: Normal : Normal Auscultation: Bowel Sounds: Normal Palpation: Normal Tenderness: Diffuse, Mild Skin: Red, Wound, Other (2 ABDOMINAL WALL FISTULAS WITH EXCORTIATION SURROUNDING IT, COLOSTOMY PRESENT) Psychiatric: Depression Affect: Depressed, Quiet Speech Pattern: Clear, Appropriate - Assessment/Plan (1) Weakness generalized Status: Acute Plan: ADMIT, GENTLE IV HYDRATION. WOUND CARE, COLOSTOMY CARE, STRICT I & OS. CHEST XRAY Q AM, GOLDSMITH CATH CARE. ADMISSION LABS AND REPEAT AM CBC CMP. 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
[2018-05-16] MEDS: LOVENOX INJ 30 MG SYR SC SCH ×2 (09:38→09:47)
[2018-05-16] MEDS: MAXZIDE 37.5/25 MG PO SCH (09:39)
[2018-05-16] MEDS: PROTONIX TAB 40 MG PO SCH (09:39)
[2018-05-16] MEDS: ZESTRIL TAB 5 MG PO SCH (09:39)
[2018-05-16] MEDS: NEURONTIN CAP 300 MG PO SCH ×2 (09:40→21:03)
[2018-05-16] MEDS: VITAMIN C PO SCH (09:40)
[2018-05-16] MEDS: VIBRAMYCIN PO SCH ×2 (09:41→21:01)
[2018-05-16] MEDS: PATIENT'S HOME MEDICATION SC SCH ×2 (10:02→21:04)
[2018-05-16] MEDS: XANAX PO PRN (10:03)
[2018-05-16] MEDS ORDERED: DILAUDID INJ IVP PRN (10:15)
[2018-05-16] MEDS: ALBUMIN HUMAN 25%- 100 ML 100 ML IV SCH (10:56)
[2018-05-16] MEDS: TUSSIONEX PENNKINETIC SUSP PO SCH ×2 (11:00→22:11)
[2018-05-16] MEDS ORDERED: NS 500 ML IV 500 ML IV ONE (13:37)
--- NOTE | 2018-05-16 14:58 | CT ---
CT OF THE ABDOMEN AND PELVIS WITHOUT CONTRAST HISTORY: Abdominal pain. Comparison: 02/27/2018 Technique: Multiple axial images of the abdomen and pelvis were obtained from the lung bases to the pubic symphysis without the administration of IV contrast. Dose reduction techniques including Automated Exposure Control (AEC) and adjustment of mA and kV were utlized. Findings: The heart is normal in size. There is no pericardial effusion. Lung bases are clear without focal consolidation, pleural effusion or pneumothorax. The sensitivity for focal lesion detection within the solid abdominal viscera is diminished without the use of IV contrast. Liver and spleen are normal in size, and contour. No focal lesions. No ductal dilitation. Gallbladder is present. No calcified gallstones or gallbladder wall thickening. The pancreas is unremarkable. Adrenal glands are normal. Kidneys are normal in contour without hydronephrosis or nephrolithiasis. Simple right renal cyst Extensive prior bowel surgery with right lower quadrant colostomy. Again oral contrast is seen within the midline surgical defect. There are multiple possible sources of fistulization. For example series 3, image 40, series 3, image 57, series 3, image 70 No abnormal appearing mesenteric or retroperitoneal lymph nodes. No free fluid or fluid collections. Urinary bladder is decompressed by Saleh catheter. Uterus not well seen. No free fluid or abnormal pelvic lymph nodes. No aggressive osseous lesions. IMPRESSION: 1. 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 These are somewhat similar to prior examination. 2. Right lower quadrant colostomy. No evidence of obstruction. Reported By:
--- NOTE | 2018-05-16 16:46 | US ---
HISTORY: Abdominal pain follow-up right renal cyst Study: Renal ultrasound Comparison: HISTORY: Study: Renal ultrasound Comparison: Technique: Multiple francis scale and color flow Doppler images of the kidneys were obtained. The region of the urinary bladder was evaluated as well. Findings: The right kidney is normal in echotexture and size. The right kidney hpmcmcad53.87 cm in length by 4.78 cm AP x 5.79 cm transverse with a cortical thickness of 1.8 cm. . No focal mass, hydronephrosis, or stones identified. There is a cyst seen in the right kidney measuring 6.24 x 4.4 x 3.36 cm in the lower pole the right kidney. This fulfills criteria for simple cyst. There is normal flow to the right kidney. Resistance index to the right kidney is 0.49. The left kidney is unremarkable in its echotexture and size. The left kidney measures . No focal mass, hydronephrosis, or stone can be seen within the left kidney. Resistance index for the left kidney is 0.62 The region of the urinary bladder is not visualized due to overlying bowel gas. 10.26 cm in length by 4.74 cm AP x 4.5 cm transverse with a cortical thickness of 1.14 cm. IMPRESSION: 1. Unremarkable evaluation of the left kidney. . 2. Large simple cyst lower pole right kidney. 3. Bladder not visualized due to overlying bowel gas. 07/10/2015. Technique: Multiple francis scale and color flow Doppler images of the kidneys were obtained. The region of the urinary bladder was evaluated as well. Findings: The right kidney is normal in echotexture and size. The right kidney measures. No focal mass, hydronephrosis, or stones identified. The left kidney is unremarkable in its echotexture and size. The left kidney measures . No focal mass, hydronephrosis, or stone can be seen within the left kidney. The region of the urinary bladder is grossly unremarkable. IMPRESSION: 1. Unremarkable evaluation of the kidneys. Comparison: Technique: Findings: IMPRESSION: 1. Reported By:
--- NOTE | 2018-05-16 18:45 | PCM.PROG ---
Progress Note - Progress Note for Day of Date of Exam: 05/16/18 - Subjective Subjective: WAS ADMITTED WITH COMPLAINTS OF GENERALIZED WEAKNESS, NON-PRODUCTIVE COUGH, N/V, AND SEVERE LOWER BACK PAIN. SHE WAS RECENTLY BEING TREATED FOR PNEUMONIA AND WAS RELEASED OVER THE WEEKEND. TODAY, SHE IS ALERT AND ORIENTED, LYING IN BED ON MORNING ROUNDS. SHE CONTINUES WITH COMPLAINTS OF GENERALIZED WEAKNESS, SEVERE LOWER BACK PAIN, AND A NON-PRODUCTIVE COUGH. SHE ALSO REPORTS ABDOMINAL PAIN THIS MORNING. 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 HER VITALS THIS MORNING ARE 98.7-80-30-100%-127/59 LABS WERE OBTAINED. ABNORMAL LAB VALUES INCLUDE THE FOLLOWING: RBC 3.42, HGB 9.3, HCT 29.2, CARBON DIOXIDE 18.8, BUN 36, CREATININE 1.82, GLUCOSE 137, ALK PHOS 309, ALBUMIN 2.0, GLOBULIN 5.1. A LUMBAR SPINE MRI WAS OBTAINED YESTERDAY AND REVEALED: Multilevel discogenic degenerative change and facet arthropathy causing varying degrees of spinal canal and neural foraminal stenosis. Moderate levoscoliosis of the lumbar spine apex at L2-3. WE PLAN TO OBTAIN AN ABDOMEN/ PELVIS CT WITH ORAL CONTRAST. WE WILL ALSO OBTAIN A RENAL ULTRASOUND AND A BONE SCAN. WE WILL START ALBUMIN 25% IV DAILY, DILAUDID 0.5MG-1MG IV Q4H PRN, AND TUSSIONEX 5ML PO HS. OTHERWISE, WE WILL FOLLOW UP WITH AM LABS AND CONTINUE TO MONITOR. - Past Medical Family Social History Past Med/Fam/Surg Hx: No changes since H&P Allergies: Allergies ciprofloxacin [From Cipro] Allergy (Verified 05/14/18 12:23) metronidazole [From Flagyl] Allergy (Verified 05/14/18 12:23) - Review of Systems ROS: No change since H&P - Vital Signs and I&O's Vital Signs: Temperature 98.8 F Pulse Rate [Right Brachial] 77 Pulse Rate 76 Respiratory Rate 22 Blood Pressure [Left Arm] 166/77 Blood Pressure [Right Arm] 112/53 Blood Pressure 134/60 O2 Sat by Pulse Oximetry 95 Intake and Output: Intake & Output 05/14/18 05/15/18 05/16/18 05/17/18 11:59 11:59 11:59 11:59 Intake Total 2250 / 2250 4610 / 4610 1738 / 1738 Output Total 1400 / 1400 2635 / 2635 1201 / 1201 Balance 850 / 850 1974 537 / 537 - Physical Exam Oriented: Normal Eyes: Normal Ear: Normal Nose: Normal Throat: Dry Respiratory: Generalized, Diminished Cardiovascular: Normal : Normal Auscultation: Bowel Sounds: Normal Palpation: Normal Tenderness: Diffuse, Mild Skin: Red, Wound, Other (2 ABDOMINAL WALL FISTULAS WITH EXCORTIATION SURROUNDING IT, COLOSTOMY PRESENT) Musculoskeletal: Back:Lumbar, Tender Psychiatric: Depression Mood Description: Calm Affect: Depressed, Quiet Speech Pattern: Clear, Appropriate - Laboratory and Diagnostics Result Diagrams: 05/16/18 04:24 05/16/18 04:24 Labs: 05/14/18 20:43 Blood Blood Culture - Preliminary 05/14/18 20:33 Blood Blood Culture - Preliminary Laboratory WBC 9.6 X10^3/uL (3.6-10.0) 05/16/18 04:24 RBC 3.42 X10^6/uL (3.5-5.4) L 05/16/18 04:24 Hgb 9.3 g/dL (12.0-16.0) L 05/16/18 04:24 Hct 29.2 % (36.0-47.0) L 05/16/18 04:24 MCV 85.3 fL (80.0-100.0) 05/16/18 04:24 MCH 27.2 pg (27.0-34.0) 05/16/18 04:24 MCHC 31.9 g/dL (33.0-35.0) L 05/16/18 04:24 RDW 14.8 % (11.6-16.5) 05/16/18 04:24 Plt Count 257 X10^3/uL (150.0-450.0) 05/16/18 04:24 Plt Count Comment Adequate (ADEQUATE) 05/15/18 05:45 MPV 8.6 fL (7.4-11.0) 05/16/18 04:24 Neut % (Auto) 82.0 % (42.0-75.0) H 05/16/18 04:24 Lymph % (Auto) 11.3 % (21.0-51.0) L 05/16/18 04:24 [place] % (Auto) 4.8 % (0.0-13.0) 05/16/18 04:24 Eos % (Auto) 1.6 % (0.9-2.9) 05/16/18 04:24 Baso % (Auto) 0.3 % (0.2-1.0) 05/16/18 04:24 Neut # (Auto) 7.8 x10^3/uL (2.2-4.8) H 05/16/18 04:24 Lymph # (Auto) 1.1 X10^3/uL (1.3-2.9) L 05/16/18 04:24 [place] # (Auto) 0.5 x10^3/uL (0.3-0.8) 05/16/18 04:24 Eos # (Auto) 0.1 x10^3/uL (0.0-0.2) 05/16/18 04:24 Baso # (Auto) 0.0 X10^3/uL (0.0-0.1) 05/16/18 04:24 Absolute Nucleated RBC 0.0 /100WBC 05/16/18 04:24 Plt Clumps, EDTA Rare 05/15/18 05:45 Giant Platelets Occasional 05/15/18 05:45 Plt Morphology Comment Normal (NORMAL) 05/15/18 05:45 RBC Morphology Normal (NORMAL) 05/15/18 05:45 Sodium 138 mmol/L (136-145) 05/16/18 04:24 Corrected Sodium 139 mmol/L (136-145) 05/16/18 04:24 Potassium 3.6 mmol/L (3.5-5.1) 05/16/18 04:24 Chloride 106 mmol/L (98-107) 05/16/18 04:24 Carbon Dioxide 18.8 mmol/L (21-32) L 05/16/18 04:24 BUN 36 mg/dL (7-18) H 05/16/18 04:24 Creatinine 1.82 mg/dL (0.55-1.02) H 05/16/18 04:24 Est GFR (MDRD) Af Amer 35 (>60) L 05/16/18 04:24 Est GFR (MDRD) Non-Af 29 (>60) L 05/16/18 04:24 Glucose 137 mg/dL (65-99) H 05/16/18 04:24 POC Glucose (mg/dL) 100 mg/dL (65-99) H 05/15/18 15:33 Lactic Acid 1.3 mmol/L (0.4-2.0) 05/14/18 15:23 Calcium 9.8 mg/dL (8.5-10.1) 05/16/18 04:24 Corrected Calcium 11.4 mg/dL (8.5-10.1) H 05/16/18 04:24 Magnesium 2.0 mg/dL (1.7-2.9) 05/16/18 04:24 Total Bilirubin 0.90 mg/dL (0.2-1.0) 05/16/18 04:24 AST 37 Units/L (15-37) 05/16/18 04:24 ALT 55 Units/L (12-78) 05/16/18 04:24 Alkaline Phosphatase 309 Units/L (46-116) H 05/16/18 04:24 Creatine Kinase 30 Units/L (26-192) 05/16/18 04:24 CK-MB (CK-2) 1.0 ng/mL (0-4.0) 05/16/18 04:24 CK/CKMB % Calc 3.3 % (<4) 05/16/18 04:24 Troponin I < 0.02 ng/mL (0-1.5) 05/16/18 04:24 Total Protein 7.1 g/dL (6.4-8.2) 05/16/18 04:24 Albumin 2.0 g/dL (3.4-5.0) L 05/16/18 04:24 Globulin 5.1 g/dL (2.5-4.5) H 05/16/18 04:24 Albumin/Globulin Ratio 0.4 Ratio (1.1-2.1) L 05/16/18 04:24 TSH 3rd Generation 1.065 uIU/mL (0.358-3.74) 05/14/18 12:52 Specimen Type Clean catch urine 05/14/18 17:47 Urine Color Yellow (YELLOW) 05/14/18 17:47 Urine Appearance Slightly hazy (CLEAR) 05/14/18 17:47 Urine pH 6.0 (5.0 - 8.0) 05/14/18 17:47 Ur Specific [place] 1.020 (1.000-1.030) 05/14/18 17:47 Urine Protein 3+ (NEGATIVE) 05/14/18 17:47 Urine Glucose (UA) Negative (NEGATIVE) 05/14/18 17:47 Urine Ketones Negative (NEGATIVE) 05/14/18 17:47 Urine Occult Blood 1+ (NEGATIVE) 05/14/18 17:47 Urine Nitrite Negative (NEGATIVE) 05/14/18 17:47 Urine Bilirubin Negative (NEGATIVE) 05/14/18 17:47 Urine Urobilinogen Normal (NORMAL) 05/14/18 17:47 Ur Leukocyte Esterase 1+ (NEGATIVE) 05/14/18 17:47 Urine RBC 0-2 /HPF (NONE SEEN) 05/14/18 17:47 Urine WBC 3-5 /HPF (NONE SEEN) 05/14/18 17:47 Ur Squamous Epith Cells Rare /HPF (NEGATIVE) 05/14/18 17:47 Amorphous Sediment 2+ /HPF (NEGATIVE) 05/14/18 17:47 Urine Bacteria Negative /HPF (NEGATIVE) 05/14/18 17:47 Hyaline Casts Rare /LPF (NEGATIVE) 05/14/18 17:47 Fine Granular Casts Few /LPF (NEGATIVE) 05/14/18 17:47 Urine Mucus Moderate /HPF (NEGATIVE) 05/14/18 17:47 Ur Culture Indicated? No/not indicated 05/14/18 17:47 Influenza Type A (PCR) Negative (NEGATIVE) 05/14/18 18:11 Influenza Type B (PCR) Negative (NEGATIVE) 05/14/18 18:11 - Plan (1) Weakness generalized Status: Acute Plan: GENTLE IV HYDRATION. WOUND CARE, COLOSTOMY CARE, STRICT I & OS. CHEST XRAY Q AM, [facility] CATH CARE. ADMISSION LABS AND REPEAT AM CBC CMP. RESP CONSULT (2) Nausea & vomiting Status: Acute Qualifiers: Vomiting type: unspecified Vomiting Intractability: intractable Qualified Code(s): R11.2 - Nausea with vomiting, unspecified (3) Pleurisy Status: Acute Plan: TORADOL 15MG IV Q6H, CONTINUE TO MONITOR (4) Abdominal pain Status: Acute Qualifiers: Abdominal location: generalized Qualified Code(s): R10.84 - Generalized abdominal pain Plan: OBTAIN ABDOMEN/PELVIS CT, CONTINUE TO MONITOR (5) Lumbar pain Status: Acute Plan: OBTAIN BONE SCAN, DILAUDID 0.5MG-1MG IV Q4H PRN, CONTINUE OTHER PAIN MEDS
[2018-05-16] MEDS: LANTISEPTIC TOP PRN (20:30)
[2018-05-16] MEDS: PEPCID TAB 20 MG PO SCH (21:01)
[2018-05-16] MEDS: SINGULAIR TAB 10 MG PO SCH (21:01)
[2018-05-16] MEDS: KLONOPIN TAB 1 MG PO SCH (21:01)
[2018-05-16] MEDS: REQUIP PO SCH (21:02)
[2018-05-16] MEDS: ZANAFLEX PO SCH (21:03)
[2018-05-16] MEDS ORDERED: DRUG FILTER EXTENSION SET ONE (21:15)
[2018-05-16] MEDS: PATIENT'S HOME MEDICATION IV SCH (21:30)
[2018-05-17] MEDS: TORADOL 30 MG VIAL IVP SCH ×4 (04:00→21:49)
[2018-05-17 05:35] LABS: BASOPHILS % (AUTO) 0.4 % (0.2-1.0); EOSINOPHILS # (AUTO) 0.1 x10^3/uL (0.0-0.2); EOSINOPHILS % (AUTO) 1.9 % (0.9-2.9); HEMOGLOBIN 7.1 g/dL (12.0-16.0); LYMPHOCYTES # (AUTO) 0.8 X10^3/uL (1.3-2.9); LYMPHOCYTES % (AUTO) 10.9 % (21.0-51.0); MEAN CORPUSCULAR HEMOGLOBIN 27.6 pg (27.0-34.0); MEAN CORPUSCULAR HGB CONC 32.3 g/dL (33.0-35.0); MEAN CORPUSCULAR VOLUME 85.6 fL (80.0-100.0); MEAN PLATELET VOLUME 8.7 fL (7.4-11.0); MONOCYTES # (AUTO) 0.4 x10^3/uL (0.3-0.8); MONOCYTES % (AUTO) 5.7 % (0.0-13.0); NEUTROPHILS # (AUTO) 6.1 x10^3/uL (2.2-4.8); NEUTROPHILS % (AUTO) 81.1 % (42.0-75.0); PLATELET COUNT 188 X10^3/uL (150.0-450.0); RED BLOOD COUNT 2.57 X10^6/uL (3.5-5.4); RED CELL DISTRIBUTION WIDTH 14.5 % (11.6-16.5); WHITE BLOOD COUNT 7.5 X10^3/uL (3.6-10.0)
[2018-05-17] MEDS: NORCO 10/325 TAB PO SCH ×4 (05:37→23:51)
[2018-05-17] MEDS: ZOSYN VIAL 3.375 GRAMS 3.375 G in NS 100 ML IV + SPIKE MINIBAG* 100 ML IV SCH ×3 (05:37→22:52)
[2018-05-17 05:56] LABS: ALBUMIN 1.8 g/dL (3.4-5.0); CALCIUM 9.3 mg/dL (8.5-10.1); CARBON DIOXIDE 16.6 mmol/L (21-32); COR CA(FOR HYPOALB) 11.1 mg/dL (8.5-10.1); CREATININE 1.72 mg/dL (0.55-1.02); TOTAL PROTEIN 5.6 g/dL (6.4-8.2)
[2018-05-17] MEDS: SYNTHROID 75 mcg TAB PO SCH (06:14)
[2018-05-17 06:18] LABS: ANISOCYTOSIS SLIGHT; HYPOCHROMASIA 1+; PLATELET MORPHOLOGY COMMENT NORMAL (NORMAL)
[2018-05-17] MEDS: MAXZIDE 37.5/25 MG PO SCH (08:58)
[2018-05-17] MEDS: ZESTRIL TAB 5 MG PO SCH (08:58)
[2018-05-17] MEDS: PROTONIX TAB 40 MG PO SCH (08:59)
[2018-05-17] MEDS: NEURONTIN CAP 300 MG PO SCH ×2 (08:59→21:07)
[2018-05-17] MEDS: VIBRAMYCIN PO SCH ×2 (08:59→20:51)
[2018-05-17] MEDS: ALBUMIN HUMAN 25%- 100 ML 100 ML IV SCH (09:01)
[2018-05-17] MEDS: PATIENT'S HOME MEDICATION SC SCH ×2 (09:01→22:51)
[2018-05-17] MEDS: VITAMIN C PO SCH (09:03)
[2018-05-17] MEDS: TUSSIONEX PENNKINETIC SUSP PO SCH ×2 (11:39→22:54)
[2018-05-17 12:14] LABS: HEMOGLOBIN 7.3 g/dL (12.0-16.0)
[2018-05-17] MEDS ORDERED: BENADRYL INJ 50 MG VIAL IVP ONE (14:25)
[2018-05-17] MEDS ORDERED: TYLENOL 325 MG TAB PO ONE (14:25)
[2018-05-17] MEDS ORDERED: NS 250 ML IV 250 ML IV ONE ×2 (14:26→20:17)
[2018-05-17] MEDS: D5 NS 1000 ML 1,000 ML IV SCH (14:44)
--- NOTE | 2018-05-17 15:20 | NM ---
BONE SCAN CLINICAL INDICATION: Pain all over. Possible metastatic disease PROCEDURE: Approximately 2-4 hours following intravenous administration of 25.6 mCi of [id number], whole body delayed planar images were obtained from the anterior and posterior projections. COMPARISON: None FINDINGS: There is normal by distribution of the radiotracer within the axial and appendicular skeleton. Multiple levels of what appears to be degenerative uptake within the thoracic spine. Degenerate uptake in the left midfoot There is normal by distribution of the radiotracer within the genitourinary system and soft tissues. IMPRESSION: 1. Degenerative uptake as above Reported By:
[2018-05-17] MEDS: TYLENOL 325 MG TAB PO PRN (20:51)
[2018-05-17] MEDS: PEPCID TAB 20 MG PO SCH (20:51)
[2018-05-17] MEDS ORDERED: LIPOSYN III 20% 250ML 250 ML IV NR (21:00)
[2018-05-17] MEDS: KLONOPIN TAB 1 MG PO SCH (21:07)
[2018-05-17] MEDS: SINGULAIR TAB 10 MG PO SCH (21:09)
[2018-05-17] MEDS: ZANAFLEX PO SCH (21:09)
[2018-05-17] MEDS: REQUIP PO SCH (21:48)
[2018-05-17] MEDS ORDERED: DRUG FILTER EXTENSION SET ONE (22:46)
[2018-05-17] MEDS: PATIENT'S HOME MEDICATION IV SCH (22:51)
[2018-05-18 00:40] LABS: HEMATOCRIT 29.5 % (36.0-47.0); HEMOGLOBIN 9.7 g/dL (12.0-16.0)
[2018-05-18] MEDS: TORADOL 30 MG VIAL IVP SCH ×3 (04:15→15:59)
[2018-05-18] MEDS: ZOSYN VIAL 3.375 GRAMS 3.375 G in NS 100 ML IV + SPIKE MINIBAG* 100 ML IV SCH ×3 (05:01→21:51)
[2018-05-18] MEDS: NORCO 10/325 TAB PO SCH (05:27)
[2018-05-18] MEDS: SYNTHROID 75 mcg TAB PO SCH (06:04)
[2018-05-18 06:13] LABS: BASOPHILS % (AUTO) 0.3 % (0.2-1.0); EOSINOPHILS # (AUTO) 0.2 x10^3/uL (0.0-0.2); EOSINOPHILS % (AUTO) 1.3 % (0.9-2.9); HEMATOCRIT 31.5 % (36.0-47.0); HEMOGLOBIN 10.1 g/dL (12.0-16.0); LYMPHOCYTES # (AUTO) 1.2 X10^3/uL (1.3-2.9); LYMPHOCYTES % (AUTO) 7.8 % (21.0-51.0); MEAN CORPUSCULAR HEMOGLOBIN 27.9 pg (27.0-34.0); MEAN CORPUSCULAR HGB CONC 32.2 g/dL (33.0-35.0); MEAN CORPUSCULAR VOLUME 86.6 fL (80.0-100.0); MONOCYTES # (AUTO) 1.1 x10^3/uL (0.3-0.8); MONOCYTES % (AUTO) 7.2 % (0.0-13.0); NEUTROPHILS % (AUTO) 83.4 % (42.0-75.0); PLATELET COUNT 212 X10^3/uL (150.0-450.0); RED BLOOD COUNT 3.63 X10^6/uL (3.5-5.4); RED CELL DISTRIBUTION WIDTH 14.8 % (11.6-16.5); WHITE BLOOD COUNT 15.6 X10^3/uL (3.6-10.0)
[2018-05-18 06:39] LABS: CALCIUM 10.1 mg/dL (8.5-10.1); CARBON DIOXIDE 17.1 mmol/L (21-32); COR CA(FOR HYPOALB) 11.7 mg/dL (8.5-10.1); CREATININE 1.96 mg/dL (0.55-1.02); TOTAL PROTEIN 6.1 g/dL (6.4-8.2)
[2018-05-18] MEDS: MAXZIDE 37.5/25 MG PO SCH (08:52)
[2018-05-18] MEDS: VITAMIN C PO SCH (08:53)
[2018-05-18] MEDS: ZESTRIL TAB 5 MG PO SCH (08:54)
[2018-05-18] MEDS: VIBRAMYCIN PO SCH (08:54)
[2018-05-18] MEDS: PROTONIX TAB 40 MG PO SCH (08:54)
[2018-05-18] MEDS: NEURONTIN CAP 300 MG PO SCH ×2 (08:54→21:19)
[2018-05-18] MEDS: PATIENT'S HOME MEDICATION SC SCH ×2 (08:55→21:35)
[2018-05-18] MEDS: ALBUMIN HUMAN 25%- 100 ML 100 ML IV SCH (08:58)
[2018-05-18] MEDS: TUSSIONEX PENNKINETIC SUSP PO SCH (11:10)
[2018-05-18] MEDS ORDERED: NORCO 10/325 TAB PO PRN (15:00)
[2018-05-18] MEDS: MORPHINE SULFATE INJ 2 MG INJ IVP PRN (15:51)
[2018-05-18] MEDS ORDERED: OFIRMEV IV 1000 MG VIAL 1,000 MG/100 ML VIAL IV ONE (18:24)
[2018-05-18] MEDS: OFIRMEV IV 1000 MG VIAL 1,000 MG/100 ML VIAL IV PRN (18:36)
[2018-05-18] MEDS: PEPCID 20 MG IV PREMIX* 20 MG/50 ML BAG IV SCH (21:15)
--- NOTE | 2018-05-18 21:15 | PCM.PROG ---
Progress Note - Progress Note for Day of Date of Exam: 05/17/18 - Subjective Subjective: WAS ADMITTED WITH COMPLAINTS OF GENERALIZED WEAKNESS, NON-PRODUCTIVE COUGH, N/V, AND SEVERE LOWER BACK PAIN. TODAY, SHE IS ALERT AND ORIENTED, LYING IN BED ON MORNING ROUNDS. SHE CONTINUES WITH COMPLAINTS OF GENERALIZED WEAKNESS, SEVERE LOWER BACK PAIN, AND A NON-PRODUCTIVE COUGH. SHE ALSO CONTINUES TO REPORT ABDOMINAL PAIN THIS MORNING. 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 HER VITALS THIS MORNING ARE 97.2-71-20-98%-128/58. LABS WERE OBTAINED. ABNORMAL LAB VALUES INCLUDE THE FOLLOWING: RBC 2.57, HGB 7.1, HCT 22.0, CHLORIDE 110, CARBON DIOXIDE 16.6, BUN 41, CREATININE 1.72, GLUCOSE 191, ALK PHOS 231, TOTAL PROTEIN 5.6, ALBUMIN 1.8. 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 These are somewhat similar to prior examination. Right lower quadrant colostomy. No evidence of obstruction. TODAY, WE WILL OBTAIN A BONE SCAN AND TRANSFUSE HER WITH 2 LITERS PACKED RED BLOOD CELLS. OTHERWISE, WE WILL CONTINUE WITH CURRENT PLAN OF CARE TODAY. WE WILL FOLLOW UP WITH AM LABS AND CONTINUE TO MONITOR. - Past Medical Family Social History Past Med/Fam/Surg Hx: No changes since H&P Allergies: Allergies ciprofloxacin [From Cipro] Allergy (Verified 05/14/18 12:23) metronidazole [From Flagyl] Allergy (Verified 05/14/18 12:23) - Review of Systems ROS: No change since H&P - Vital Signs and I&O's Vital Signs: Temperature 102 F Pulse Rate [Right Brachial] 99 Pulse Rate 81 Respiratory Rate 22 Blood Pressure [Left Calf] 110/53 Blood Pressure [Left Arm] 106/55 Blood Pressure [Right Arm] 119/63 Blood Pressure 134/60 O2 Sat by Pulse Oximetry 90 Intake and Output: Intake & Output 05/16/18 05/17/18 05/18/18 05/19/18 11:59 11:59 11:59 11:59 Intake Total 4610 / 4610 4398 / 4398 3790 / 3790 50 / 50 Output Total 2635 / 2635 2276 / 2276 2300 / 2300 700 / 700 Balance 1974 / 1974 2121 2121 1490 / 1490 -650 / -650 - Physical Exam Oriented: Normal Eyes: Normal Ear: Normal Nose: Normal Throat: Dry Respiratory: Generalized, Diminished Cardiovascular: Normal : Normal Auscultation: Bowel Sounds: Normal Palpation: Normal Tenderness: Diffuse, Mild Skin: Red, Wound, Other (2 ABDOMINAL WALL FISTULAS WITH EXCORTIATION SURROUNDING IT, COLOSTOMY PRESENT) Musculoskeletal: Back:Lumbar, Tender Psychiatric: Depression Mood Description: Calm Affect: Depressed, Quiet Speech Pattern: Clear - Laboratory and Diagnostics Result Diagrams: 05/18/18 05:30 05/18/18 05:30 Labs: 05/14/18 20:33 Blood Blood Culture - Preliminary 05/14/18 20:43 Blood Blood Culture - Preliminary Laboratory WBC 15.6 X10^3/uL (3.6-10.0) H D 05/18/18 05:30 RBC 3.63 X10^6/uL (3.5-5.4) 05/18/18 05:30 Hgb 10.1 g/dL (12.0-16.0) L 05/18/18 05:30 Hct 31.5 % (36.0-47.0) L 05/18/18 05:30 MCV 86.6 fL (80.0-100.0) 05/18/18 05:30 MCH 27.9 pg (27.0-34.0) 05/18/18 05:30 MCHC 32.2 g/dL (33.0-35.0) L 05/18/18 05:30 RDW 14.8 % (11.6-16.5) 05/18/18 05:30 Plt Count 212 X10^3/uL (150.0-450.0) 05/18/18 05:30 Plt Count Comment Decreased (ADEQUATE) A 05/17/18 04:56 MPV 9.0 fL (7.4-11.0) 05/18/18 05:30 Neut % (Auto) 83.4 % (42.0-75.0) H 05/18/18 05:30 Lymph % (Auto) 7.8 % (21.0-51.0) L 05/18/18 05:30 [place] % (Auto) 7.2 % (0.0-13.0) 05/18/18 05:30 Eos % (Auto) 1.3 % (0.9-2.9) 05/18/18 05:30 Baso % (Auto) 0.3 % (0.2-1.0) 05/18/18 05:30 Neut # (Auto) 13.0 x10^3/uL (2.2-4.8) H 05/18/18 05:30 Lymph # (Auto) 1.2 X10^3/uL (1.3-2.9) L 05/18/18 05:30 [place] # (Auto) 1.1 x10^3/uL (0.3-0.8) H 05/18/18 05:30 Eos # (Auto) 0.2 x10^3/uL (0.0-0.2) 05/18/18 05:30 Baso # (Auto) 0.0 X10^3/uL (0.0-0.1) 05/18/18 05:30 Absolute Nucleated RBC 0.0 /100WBC 05/18/18 05:30 Plt Clumps, EDTA Rare 05/15/18 05:45 Giant Platelets Occasional 05/15/18 05:45 Plt Morphology Comment Normal (NORMAL) 05/17/18 04:56 RBC Morphology Abnormal (NORMAL) A 05/17/18 04:56 Hypochromasia 1+ A 05/17/18 04:56 Anisocytosis Slight A 05/17/18 04:56 Sodium 138 mmol/L (136-145) 05/18/18 05:30 Corrected Sodium 139 mmol/L (136-145) 05/18/18 05:30 Potassium 4.3 mmol/L (3.5-5.1) 05/18/18 05:30 Chloride 109 mmol/L (98-107) H 05/18/18 05:30 Carbon Dioxide 17.1 mmol/L (21-32) L 05/18/18 05:30 BUN 40 mg/dL (7-18) H 05/18/18 05:30 Creatinine 1.96 mg/dL (0.55-1.02) H 05/18/18 05:30 Est GFR (MDRD) Af Amer 32 (>60) L 05/18/18 05:30 Est GFR (MDRD) Non-Af 27 (>60) L 05/18/18 05:30 Glucose 145 mg/dL (65-99) H 05/18/18 05:30 POC Glucose (mg/dL) 100 mg/dL (65-99) H 05/15/18 15:33 Lactic Acid 1.3 mmol/L (0.4-2.0) 05/14/18 15:23 Calcium 10.1 mg/dL (8.5-10.1) 05/18/18 05:30 Corrected Calcium 11.7 mg/dL (8.5-10.1) H 05/18/18 05:30 Magnesium 2.0 mg/dL (1.7-2.9) 05/16/18 04:24 Total Bilirubin 1.60 mg/dL (0.2-1.0) H 05/18/18 05:30 AST 24 Units/L (15-37) 05/18/18 05:30 ALT 26 Units/L (12-78) 05/18/18 05:30 Alkaline Phosphatase 238 Units/L (46-116) H 05/18/18 05:30 Creatine Kinase 30 Units/L (26-192) 05/16/18 04:24 CK-MB (CK-2) 1.0 ng/mL (0-4.0) 05/16/18 04:24 CK/CKMB % Calc 3.3 % (<4) 05/16/18 04:24 Troponin I < 0.02 ng/mL (0-1.5) 05/16/18 04:24 Total Protein 6.1 g/dL (6.4-8.2) L 05/18/18 05:30 Albumin 2.0 g/dL (3.4-5.0) L 05/18/18 05:30 Globulin 4.1 g/dL (2.5-4.5) 05/18/18 05:30 Albumin/Globulin Ratio 0.5 Ratio (1.1-2.1) L 05/18/18 05:30 TSH 3rd Generation 1.065 uIU/mL (0.358-3.74) 05/14/18 12:52 Specimen Type Clean catch urine 05/14/18 17:47 Urine Color Yellow (YELLOW) 05/14/18 17:47 Urine Appearance Slightly hazy (CLEAR) 05/14/18 17:47 Urine pH 6.0 (5.0 - 8.0) 05/14/18 17:47 Ur Specific [place] 1.020 (1.000-1.030) 05/14/18 17:47 Urine Protein 3+ (NEGATIVE) 05/14/18 17:47 Urine Glucose (UA) Negative (NEGATIVE) 05/14/18 17:47 Urine Ketones Negative (NEGATIVE) 05/14/18 17:47 Urine Occult Blood 1+ (NEGATIVE) 05/14/18 17:47 Urine Nitrite Negative (NEGATIVE) 05/14/18 17:47 Urine Bilirubin Negative (NEGATIVE) 05/14/18 17:47 Urine Urobilinogen Normal (NORMAL) 05/14/18 17:47 Ur Leukocyte Esterase 1+ (NEGATIVE) 05/14/18 17:47 Urine RBC 0-2 /HPF (NONE SEEN) 05/14/18 17:47 Urine WBC 3-5 /HPF (NONE SEEN) 05/14/18 17:47 Ur Squamous Epith Cells Rare /HPF (NEGATIVE) 05/14/18 17:47 Amorphous Sediment 2+ /HPF (NEGATIVE) 05/14/18 17:47 Urine Bacteria Negative /HPF (NEGATIVE) 05/14/18 17:47 Hyaline Casts Rare /LPF (NEGATIVE) 05/14/18 17:47 Fine Granular Casts Few /LPF (NEGATIVE) 05/14/18 17:47 Urine Mucus Moderate /HPF (NEGATIVE) 05/14/18 17:47 Ur Culture Indicated? No/not indicated 05/14/18 17:47 Influenza Type A (PCR) Negative (NEGATIVE) 05/14/18 18:11 Influenza Type B (PCR) Negative (NEGATIVE) 05/14/18 18:11 Blood Type O POSITIVE 05/17/18 08:20 Antibody Screen Negative 05/17/18 08:20 Crossmatch See Detail 05/17/18 08:20 - Plan (1) Weakness generalized Status: Acute Plan: GENTLE IV HYDRATION. WOUND CARE, COLOSTOMY CARE, STRICT I & OS. CHEST XRAY Q AM, GOLDSMITH CATH CARE. AM CBC CMP. RESP CONSULT (2) Nausea & vomiting Status: Acute Qualifiers: Vomiting type: unspecified Vomiting Intractability: intractable Qualified Code(s): R11.2 - Nausea with vomiting, unspecified (3) Pleurisy Status: Acute Plan: TORADOL 15MG IV Q6H, CONTINUE TO MONITOR (4) Abdominal pain Status: Acute Qualifiers: Abdominal location: generalized Qualified Code(s): R10.84 - Generalized abdominal pain Plan: PAIN MANAGEMENT, CONTINUE TO MONITOR (5) Lumbar pain Status: Acute Plan: OBTAIN BONE SCAN, DILAUDID 0.5MG-1MG IV Q4H PRN, CONTINUE OTHER PAIN MEDS
[2018-05-18] MEDS: SINGULAIR TAB 10 MG PO SCH (21:19)
[2018-05-18] MEDS: KLONOPIN TAB 1 MG PO SCH (21:19)
[2018-05-18] MEDS: REQUIP PO SCH (21:20)
[2018-05-18] MEDS ORDERED: DRUG FILTER EXTENSION SET ONE (21:24)
[2018-05-18] MEDS: PATIENT'S HOME MEDICATION IV SCH (21:32)
[2018-05-18] MEDS: VIBRAMYCIN 100 MG in D5W 250 ML IV 250 ML IV SCH (21:33)
[2018-05-18] MEDS: ZANAFLEX PO SCH (21:35)
[2018-05-19] MEDS: TUSSIONEX PENNKINETIC SUSP PO SCH (00:20)
[2018-05-19] MEDS: D5 NS 1000 ML 1,000 ML IV SCH (03:55)
[2018-05-19] MEDS: MORPHINE SULFATE INJ 2 MG INJ IVP PRN ×2 (03:55→10:31)
[2018-05-19] MEDS: ZOSYN VIAL 3.375 GRAMS 3.375 G in NS 100 ML IV + SPIKE MINIBAG* 100 ML IV SCH (05:11)
[2018-05-19 05:29] LABS: BASOPHILS # (AUTO) 0.1 X10^3/uL (0.0-0.1); BASOPHILS % (AUTO) 0.5 % (0.2-1.0); EOSINOPHILS # (AUTO) 0.1 x10^3/uL (0.0-0.2); EOSINOPHILS % (AUTO) 0.6 % (0.9-2.9); HEMATOCRIT 31.7 % (36.0-47.0); HEMOGLOBIN 10.2 g/dL (12.0-16.0); LYMPHOCYTES # (AUTO) 1.5 X10^3/uL (1.3-2.9); LYMPHOCYTES % (AUTO) 9.1 % (21.0-51.0); MEAN CORPUSCULAR HEMOGLOBIN 27.5 pg (27.0-34.0); MEAN CORPUSCULAR HGB CONC 32.3 g/dL (33.0-35.0); MEAN CORPUSCULAR VOLUME 85.2 fL (80.0-100.0); MEAN PLATELET VOLUME 8.8 fL (7.4-11.0); MONOCYTES # (AUTO) 1.1 x10^3/uL (0.3-0.8); MONOCYTES % (AUTO) 6.7 % (0.0-13.0); NEUTROPHILS # (AUTO) 13.7 x10^3/uL (2.2-4.8); NEUTROPHILS % (AUTO) 83.1 % (42.0-75.0); PLATELET COUNT 230 X10^3/uL (150.0-450.0); RED BLOOD COUNT 3.72 X10^6/uL (3.5-5.4); WHITE BLOOD COUNT 16.5 X10^3/uL (3.6-10.0)
[2018-05-19 05:41] LABS: ALBUMIN 2.3 g/dL (3.4-5.0); CALCIUM 11.2 mg/dL (8.5-10.1); CARBON DIOXIDE 16.5 mmol/L (21-32); COR CA(FOR HYPOALB) 12.6 mg/dL (8.5-10.1); CREATININE 1.94 mg/dL (0.55-1.02); TOTAL PROTEIN 6.5 g/dL (6.4-8.2)
[2018-05-19] MEDS: OFIRMEV IV 1000 MG VIAL 1,000 MG/100 ML VIAL IV PRN (07:30)
[2018-05-19] MEDS ORDERED: PROTONIX INJ 40 MG VIAL IVP SCH (09:00)
[2018-05-19] MEDS: SYNTHROID 75 mcg TAB PO SCH (09:35)
[2018-05-19] MEDS: ZESTRIL TAB 5 MG PO SCH (09:36)
[2018-05-19] MEDS: PATIENT'S HOME MEDICATION SC SCH ×3 (09:36→10:10)
[2018-05-19] MEDS: VITAMIN C PO SCH (09:36)
[2018-05-19] MEDS: MAXZIDE 37.5/25 MG PO SCH (09:36)
[2018-05-19] MEDS: NEURONTIN CAP 300 MG PO SCH (09:37)
[2018-05-19] MEDS: VIBRAMYCIN 100 MG in D5W 250 ML IV 250 ML IV SCH ×2 (09:39→10:09)
[2018-05-19] MEDS: PEPCID 20 MG IV PREMIX* 20 MG/50 ML BAG IV SCH ×2 (09:39→10:09)
[2018-05-19] MEDS: ALBUMIN HUMAN 25%- 100 ML 100 ML IV SCH (09:40)
[2018-05-19] MEDS ORDERED: MORPHINE SULFATE PCA 30 MG IVP PRN ×3 (10:35→17:28)
[2018-05-19] MEDS: VERSED 100 MG in NS 100 ML IV 80 ML IV PRN (16:50)
[2018-05-20 04:54] LABS: BASOPHILS # (AUTO) 0.1 X10^3/uL (0.0-0.1); BASOPHILS % (AUTO) 0.5 % (0.2-1.0); EOSINOPHILS # (AUTO) 0.1 x10^3/uL (0.0-0.2); EOSINOPHILS % (AUTO) 0.9 % (0.9-2.9); HEMOGLOBIN 10.2 g/dL (12.0-16.0); LYMPHOCYTES % (AUTO) 12.6 % (21.0-51.0); MEAN CORPUSCULAR HEMOGLOBIN 27.1 pg (27.0-34.0); MEAN CORPUSCULAR HGB CONC 31.9 g/dL (33.0-35.0); MEAN CORPUSCULAR VOLUME 85.1 fL (80.0-100.0); MEAN PLATELET VOLUME 8.5 fL (7.4-11.0); MONOCYTES # (AUTO) 1.4 x10^3/uL (0.3-0.8); NEUTROPHILS # (AUTO) 12.2 x10^3/uL (2.2-4.8); PLATELET COUNT 266 X10^3/uL (150.0-450.0); RED BLOOD COUNT 3.76 X10^6/uL (3.5-5.4); RED CELL DISTRIBUTION WIDTH 15.6 % (11.6-16.5); WHITE BLOOD COUNT 15.9 X10^3/uL (3.6-10.0)
[2018-05-20 05:16] LABS: ALANINE AMINOTRANSFERASE 28 Units/L (12-78); ALBUMIN 2.2 g/dL (3.4-5.0); ALKALINE PHOSPHATASE 277 Units/L (46-116); ASPARTATE AMINO TRANSFERASE 23 Units/L (15-37); BLOOD UREA NITROGEN 52 mg/dL (7-18); CALCIUM 11.7 mg/dL (8.5-10.1); CARBON DIOXIDE 19.6 mmol/L (21-32); CHLORIDE 114 mmol/L (98-107); COR CA(FOR HYPOALB) 13.1 mg/dL (8.5-10.1); SODIUM 147 mmol/L (136-145); TOTAL PROTEIN 6.8 g/dL (6.4-8.2); eGFR NON BLACK RACES 22 (>60)
[2018-05-20] MEDS: OFIRMEV IV 1000 MG VIAL 1,000 MG/100 ML VIAL IV PRN (05:17)
[2018-05-20] MEDS: VERSED 100 MG in NS 100 ML IV 80 ML IV PRN ×2 (09:31→19:00)
[2018-05-20] MEDS ORDERED: VERSED ONE (10:19)
[2018-05-20] MEDS ORDERED: NS 100 ML IV 100 ML IV ONE (10:19)
[2018-05-20] MEDS: MORPHINE SULFATE PCA 30 MG IVP PRN ×4 (10:30→22:35)
--- NOTE | 2018-05-20 22:33 | PCM.PROG ---
Progress Note - Progress Note for Day of Date of Exam: 05/18/18 - Subjective Subjective: WAS ADMITTED WITH COMPLAINTS OF GENERALIZED WEAKNESS, NON-PRODUCTIVE COUGH, N/V, AND SEVERE LOWER BACK PAIN. TODAY, SHE IS LYING IN BED WITH EYES CLOSED ON MORNING ROUNDS. SHE AWAKENS TO VERBAL STIMULI. SHE CONTINUES WITH COMPLAINTS OF SEVERE LOWER BACK PAIN, ABDOMINAL PAIN, AND A NON- PRODUCTIVE COUGH. STAFF REPORTS MODERATE DRAINAGE FROM FISTULAS. HER VITALS THIS MORNING ARE 98.1-69-20-100%-119/63. LABS WERE OBTAINED. ABNORMAL LAB VALUES INCLUDE THE FOLLOWING: WBC INCREASED FROM 7.5 TO 15.6, HGB 10.1, HCT 31.5, CHLORIDE 109, CARBON DIOXIDE 17.1, BUN 40, CREATININE 1.96, GLUCOSE 145, TOTAL BILI 1.60, ALK PHOS 238, TOTAL PROTEIN 6.1, ALBUMIN 2.0. SHE RECEIVED TWO UNITS OF PACKED RED BLOOD CELLS YESTERDAY. A BONE SCAN WAS OBTAINED YESTERDAY AND REVEALED: There is normal by distribution of the radiotracer within the axial and appendicular skeleton. Multiple levels of what appears to be degenerative uptake within the thoracic spine. Degenerate uptake in the left midfoot. TODAY, WE WILL START A DURAGESIC 25MCG/HR PATCH.OTHERWISE, WE WILL CONTINUE WITH CURRENT PLAN OF CARE TODAY. WE WILL FOLLOW UP WITH AM LABS AND CONTINUE TO MONITOR. - Past Medical Family Social History Past Med/Fam/Surg Hx: No changes since H&P Allergies: Allergies ciprofloxacin [From Cipro] Allergy (Verified 05/14/18 12:23) metronidazole [From Flagyl] Allergy (Verified 05/14/18 12:23) - Review of Systems ROS: No change since H&P - Vital Signs and I&O's Vital Signs: Temperature 99.9 F Pulse Rate [Right Brachial] 86 Pulse Rate 81 Respiratory Rate 16 Blood Pressure [Left Calf] 181/72 Blood Pressure [Left Arm] 106/55 Blood Pressure [Right Arm] 105/65 Blood Pressure 134/60 O2 Sat by Pulse Oximetry 93 Intake and Output: Intake & Output 05/18/18 05/19/18 05/20/18 05/21/18 11:59 11:59 11:59 11:59 Intake Total 3790 / 3790 1570 / 1570 0 / 0 100 / 100 Output Total 2300 / 2300 700 / 700 2400 / 2400 400 / 400 Balance 1490 / 1490 870 / 870 -2400 / -2400 -300 / -300 - Physical Exam Oriented: Normal Eyes: Normal Ear: Normal Nose: Normal Throat: Normal, Dry Respiratory: Generalized, Diminished Cardiovascular: Normal : Normal Auscultation: Bowel Sounds: Normal Palpation: Normal Tenderness: Diffuse, Mild Skin: Red, Wound, Other (2 ABDOMINAL WALL FISTULAS WITH EXCORTIATION SURROUNDING IT, COLOSTOMY PRESENT) Musculoskeletal: Back:Lumbar, Tender Psychiatric: Depression Mood Description: Calm Affect: Depressed, Quiet Speech Pattern: Aphasic - Laboratory and Diagnostics Result Diagrams: 05/20/18 03:55 05/20/18 03:55 Labs: 05/14/18 20:43 Blood Blood Culture - Final 05/14/18 20:33 Blood Blood Culture - Final Laboratory WBC 15.9 X10^3/uL (3.6-10.0) H 05/20/18 03:55 RBC 3.76 X10^6/uL (3.5-5.4) 05/20/18 03:55 Hgb 10.2 g/dL (12.0-16.0) L 05/20/18 03:55 Hct 32.0 % (36.0-47.0) L 05/20/18 03:55 MCV 85.1 fL (80.0-100.0) 05/20/18 03:55 MCH 27.1 pg (27.0-34.0) 05/20/18 03:55 MCHC 31.9 g/dL (33.0-35.0) L 05/20/18 03:55 RDW 15.6 % (11.6-16.5) 05/20/18 03:55 Plt Count 266 X10^3/uL (150.0-450.0) 05/20/18 03:55 Plt Count Comment Decreased (ADEQUATE) A 05/17/18 04:56 MPV 8.5 fL (7.4-11.0) 05/20/18 03:55 Neut % (Auto) 77.0 % (42.0-75.0) H 05/20/18 03:55 Lymph % (Auto) 12.6 % (21.0-51.0) L 05/20/18 03:55 [place] % (Auto) 9.0 % (0.0-13.0) 05/20/18 03:55 Eos % (Auto) 0.9 % (0.9-2.9) 05/20/18 03:55 Baso % (Auto) 0.5 % (0.2-1.0) 05/20/18 03:55 Neut # (Auto) 12.2 x10^3/uL (2.2-4.8) H 05/20/18 03:55 Lymph # (Auto) 2.0 X10^3/uL (1.3-2.9) 05/20/18 03:55 [place] # (Auto) 1.4 x10^3/uL (0.3-0.8) H 05/20/18 03:55 Eos # (Auto) 0.1 x10^3/uL (0.0-0.2) 05/20/18 03:55 Baso # (Auto) 0.1 X10^3/uL (0.0-0.1) 05/20/18 03:55 Absolute Nucleated RBC 0.0 /100WBC 05/20/18 03:55 Plt Clumps, EDTA Rare 05/15/18 05:45 Giant Platelets Occasional 05/15/18 05:45 Plt Morphology Comment Normal (NORMAL) 05/17/18 04:56 RBC Morphology Abnormal (NORMAL) A 05/17/18 04:56 Hypochromasia 1+ A 05/17/18 04:56 Anisocytosis Slight A 05/17/18 04:56 Sodium 147 mmol/L (136-145) H 05/20/18 03:55 Corrected Sodium TNP 05/20/18 03:55 Potassium 4.3 mmol/L (3.5-5.1) 05/20/18 03:55 Chloride 114 mmol/L (98-107) H 05/20/18 03:55 Carbon Dioxide 19.6 mmol/L (21-32) L 05/20/18 03:55 BUN 52 mg/dL (7-18) H 05/20/18 03:55 Creatinine 2.30 mg/dL (0.55-1.02) H 05/20/18 03:55 Est GFR (MDRD) Af Amer 27 (>60) L 05/20/18 03:55 Est GFR (MDRD) Non-Af 22 (>60) L 05/20/18 03:55 Glucose 86 mg/dL (65-99) 05/20/18 03:55 POC Glucose (mg/dL) 100 mg/dL (65-99) H 05/15/18 15:33 Lactic Acid 1.3 mmol/L (0.4-2.0) 05/14/18 15:23 Calcium 11.7 mg/dL (8.5-10.1) H 05/20/18 03:55 Corrected Calcium 13.1 mg/dL (8.5-10.1) H 05/20/18 03:55 Magnesium 2.0 mg/dL (1.7-2.9) 05/16/18 04:24 Total Bilirubin 2.20 mg/dL (0.2-1.0) H 05/20/18 03:55 AST 23 Units/L (15-37) 05/20/18 03:55 ALT 28 Units/L (12-78) 05/20/18 03:55 Alkaline Phosphatase 277 Units/L (46-116) H 05/20/18 03:55 Creatine Kinase 30 Units/L (26-192) 05/16/18 04:24 CK-MB (CK-2) 1.0 ng/mL (0-4.0) 05/16/18 04:24 CK/CKMB % Calc 3.3 % (<4) 05/16/18 04:24 Troponin I < 0.02 ng/mL (0-1.5) 05/16/18 04:24 Total Protein 6.8 g/dL (6.4-8.2) 05/20/18 03:55 Albumin 2.2 g/dL (3.4-5.0) L 05/20/18 03:55 Globulin 4.6 g/dL (2.5-4.5) H 05/20/18 03:55 Albumin/Globulin Ratio 0.5 Ratio (1.1-2.1) L 05/20/18 03:55 TSH 3rd Generation 1.065 uIU/mL (0.358-3.74) 05/14/18 12:52 Specimen Type Clean catch urine 05/14/18 17:47 Urine Color Yellow (YELLOW) 05/14/18 17:47 Urine Appearance Slightly hazy (CLEAR) 05/14/18 17:47 Urine pH 6.0 (5.0 - 8.0) 05/14/18 17:47 Ur Specific [place] 1.020 (1.000-1.030) 05/14/18 17:47 Urine Protein 3+ (NEGATIVE) 05/14/18 17:47 Urine Glucose (UA) Negative (NEGATIVE) 05/14/18 17:47 Urine Ketones Negative (NEGATIVE) 05/14/18 17:47 Urine Occult Blood 1+ (NEGATIVE) 05/14/18 17:47 Urine Nitrite Negative (NEGATIVE) 05/14/18 17:47 Urine Bilirubin Negative (NEGATIVE) 05/14/18 17:47 Urine Urobilinogen Normal (NORMAL) 05/14/18 17:47 Ur Leukocyte Esterase 1+ (NEGATIVE) 05/14/18 17:47 Urine RBC 0-2 /HPF (NONE SEEN) 05/14/18 17:47 Urine WBC 3-5 /HPF (NONE SEEN) 05/14/18 17:47 Ur Squamous Epith Cells Rare /HPF (NEGATIVE) 05/14/18 17:47 Amorphous Sediment 2+ /HPF (NEGATIVE) 05/14/18 17:47 Urine Bacteria Negative /HPF (NEGATIVE) 05/14/18 17:47 Hyaline Casts Rare /LPF (NEGATIVE) 05/14/18 17:47 Fine Granular Casts Few /LPF (NEGATIVE) 05/14/18 17:47 Urine Mucus Moderate /HPF (NEGATIVE) 05/14/18 17:47 Ur Culture Indicated? No/not indicated 05/14/18 17:47 Influenza Type A (PCR) Negative (NEGATIVE) 05/14/18 18:11 Influenza Type B (PCR) Negative (NEGATIVE) 05/14/18 18:11 Blood Type O POSITIVE 05/17/18 08:20 Antibody Screen Negative 05/17/18 08:20 Crossmatch See Detail 05/17/18 08:20 - Plan (1) Weakness generalized Status: Acute Plan: GENTLE IV HYDRATION. WOUND CARE, COLOSTOMY CARE, STRICT I & OS. CHEST XRAY Q AM, GOLDSMITH CATH CARE. AM CBC CMP. RESP CONSULT (2) Nausea & vomiting Status: Acute Qualifiers: Vomiting type: unspecified Vomiting Intractability: intractable Qualified Code(s): R11.2 - Nausea with vomiting, unspecified (3) Pleurisy Status: Acute Plan: TORADOL 15MG IV Q6H, CONTINUE TO MONITOR (4) Abdominal pain Status: Acute Qualifiers: Abdominal location: generalized Qualified Code(s): R10.84 - Generalized abdominal pain Plan: PAIN MANAGEMENT, CONTINUE TO MONITOR (5) Lumbar pain Status: Acute Plan: DURAGESIC PATCH, DILAUDID 0.5MG-1MG IV Q4H PRN, CONTINUE OTHER PAIN MEDS
[2018-05-21] MEDS: MORPHINE SULFATE PCA 30 MG IVP PRN (01:55)
[2018-05-21] MEDS: OFIRMEV IV 1000 MG VIAL 1,000 MG/100 ML VIAL IV PRN (03:50)
[2018-05-21] MEDS ORDERED: MORPHINE SULFATE IV SCH ×2 (05:00)
[2018-05-21] MEDS ORDERED: NS IV SCH ×2 (05:00)
[2018-05-21] MEDS ORDERED: NS 50 ML IV 50 ML IV ONE (05:05)
[2018-05-21] MEDS ORDERED: MORPHINE SULFATE INJ 10 MG ONE ×4 (05:05→16:08)
[2018-05-21] MEDS: VERSED 100 MG in NS 100 ML IV 80 ML IV PRN (05:07)
[2018-05-21] MEDS ORDERED: NS 100 ML IV 100 ML IV ONE (07:50)
[2018-05-21] MEDS ORDERED: VERSED 100 MG in NS 100 ML IV 80 ML IV SCH (09:00)
[2018-05-21] MEDS ORDERED: CHECK PATCH XX SCH (09:00)
[2018-05-21] MEDS ORDERED: NS 100 ML IV 200 ML IV ONE ×2 (12:39→16:09)
[2018-05-21] MEDS ORDERED: VERSED ONE ×2 (12:46→16:11)
[2018-05-21 16:51] VITALS: BP 74/46
== END 2018-05-21 18:55 | disposition expired | DRG 948 ==
LOC: ICU 12:19 → ER 12:19 → ICU 15:58 → MED/SURG 05-16 15:52
PROVIDERS: ADMIT Internal Medicine; ATTEND Internal Medicine
DX: R09.1 Pleurisy; I46.9 Cardiac arrest, cause unspecified; R53.1 Weakness; Z90.49 Acquired absence of other specified parts of digestive tract; K21.9 Gastro-esophageal reflux disease without esophagitis; R00.1 Bradycardia, unspecified; R52 Pain, unspecified; I10 Essential (primary) hypertension; Z66 Do not resuscitate; I48.91 Unspecified atrial fibrillation; E86.0 Dehydration; N28.9 Disorder of kidney and ureter, unspecified; R11.2 Nausea with vomiting, unspecified; R06.02 Shortness of breath
CPT/HCPCS: 36415; 36430; 71010; 71045; 72148; 74022; 74176; 76770; 78306; 80053; 81001; 82550; 82553; 83605; 83735; 84443; 84484; 85014; 85018; 85025; 86850; 86900; 86901; 86922; 87040; 87502; 93005; 94640; 94760; 96365; 97163; 97167; 97530; 97535; 99218; 99284; A4222; C9113; P9016; P9047; S0028; A9503; G0378; J0131; J1200; J1650; J1885; J2250; J2270; J2271; J2310; J2405; J2543; J2550; J3490; J7030; J7040; J7042; J7050; J7060; J7613